=== PATIENT | male | born 1955 | race Caucasian/White ===

== ENCOUNTER → 2017-11-08 08:13 | Outpatient (CLI) | payer MEDICARE, SELFPAY ==
[2017-11-08 09:58] LABS: Anion Gap 12.1 mEq/L (5-15); Blood Urea Nitrogen 19 mg/dL (7-18); Carbon Dioxide 29 mmol/L (21.0-32.0); Chloride 102 mmol/L (98-107); Creatinine,Serum 0.92 mg/dL (0.70-1.30); Estimated Glomerular Filt Rate > 60 ml/min (>60); GFR (African American) > 60 ML/MIN (>60); Glucose 155 mg/dL (74-106); Sodium 138 mmol/L (136-145)
[2017-11-08 10:07] LABS: Potassium 5.1 mmoL/L (3.5-5.1)
== END ==
PROVIDERS: PCP Internal Medicine; Visit Provider Internal Medicine
DX: R06.02 Shortness of breath (principal); I25.10 Atherosclerotic heart disease of native coronary artery without angina pectoris; E78.5 Hyperlipidemia, unspecified; I10 Essential (primary) hypertension; Z95.5 Presence of coronary angioplasty implant and graft
CPT/HCPCS: 36415; 80048; 83880

== ENCOUNTER → 2017-11-17 08:14 | Outpatient (CLI) | payer MEDICARE, SELFPAY ==
--- NOTE | 2017-11-17 08:21 | XR_ITS ---
XR chest 2V HISTORY: Follow-up pneumonia ITS.REASON: PNEUMONIA ORDERING PHYSICIAN: Miguel Quiñones PATIENT AGE: 62 years COMPARISON: None available FINDINGS: There is normal heart size. There is hyperinflation with hyperattenuation consistent with COPD. There remains consolidation with prominent bronchovascular markings in the left perihilar region. The left lower lobe consolidation has improved. There however does remain prominence of the left hilum. There is increased density in the left paraspinal region within the left lower lobe which could be related to the aorta with shift toward the left with volume loss. One cannot exclude left lower lobe collapse. The right lung is clear. No obvious effusion. IMPRESSION: 1. Improvement in the left lower lobe pneumonia with effusion. 2. Persistent consolidation in the left perihilar region with prominence of the left hilum. While these findings may be inflammatory/infectious, one cannot exclude possibility of neoplasm. Recommend continued follow-up. If this does not clear then CT with contrast would be recommended for further evaluation.
== END ==
PROVIDERS: PCP Internal Medicine; Visit Provider Internal Medicine
DX: J18.9 Pneumonia, unspecified organism (principal)
CPT/HCPCS: 71046

== ENCOUNTER → 2017-12-04 07:58 | Outpatient (CLI) | payer MEDICARE, SELFPAY ==
--- NOTE | 2017-12-04 08:04 | CA_ITS ---
PROCEDURE: 2-D M-mode and color Doppler study INDICATIONS FOR THE TEST: Chest pain COPD Heart Murmur Tobacco Smoking Palpitations Fatigue Syncope Edema HypertensionXDiabetes Mellitus Rheumatic Fever SOB CALVERT Obesity Hyperlipidemia Family History HD Additional History CAD,CM EF 10/25/17 30-45% PATIENT INFORMATION HEIGHT: 70 WEIGHT:148 GENDER: Male B/P:119/86 2-D/M-MODE INTERPRETATION: 2-D MEASUREMENTS OBSERVED VALUES IN CMS Right Ventricular Dimension (RVDd) 1.9 Interventricular Septum (Thickness)(IVsd) .8 Left Ventricular Internal Dimensions(LVIDd) 4.0 Left Ventricular Posterior Wall (Thickness)(LVPWd) .7 Aortic Root 3.1 Aortic Cusp Separation 2.0 Left Atrial Dimensions (LAD) 2.4 2D 1. Left atrium is mildly enlarged, left ventricle is normal size, there is no concentric left ventricular hypertrophy, visually estimated ejection fraction 40-45%, there is marked hypokinesis involving the inferobasal wall. 2. The right atrium and right ventricle are normal size and contractility. 3. The aortic valve is minimally thickened and fibrosed. 4. The mitral and tricuspid valve leaflets are minimally thickened. 5. The pulmonic valve is poorly visualized. 6. No significant pericardial effusion noted. DOPPLER INTERROGATION: Doppler interrogation of the aortic, mitral and tricuspid valvular presence of mild mitral and tricuspid regurgitation, tricuspid and jet velocity is insufficient for calculation of the right ventricular systolic pressure, diastolic parameters are within normal range. CONCLUSION: 1. Mildly enlarged left atrium, normal left ventricular size, visually estimated ejection fraction of 40-45% with segmental wall motion abnormality described above, diastolic parameters are within normal range. 2. Mild mitral and tricuspid regurgitation. 3. No significant pericardial effusion noted.
== END ==
PROVIDERS: PCP Internal Medicine; Visit Provider Internal Medicine
DX: I25.10 Atherosclerotic heart disease of native coronary artery without angina pectoris (principal); I42.9 Cardiomyopathy, unspecified
CPT/HCPCS: 93306

== ENCOUNTER → 2017-12-29 09:23 | Outpatient (CLI) | payer MEDICARE, SELFPAY ==
--- NOTE | 2017-12-29 09:28 | XR_ITS ---
XR chest 2V HISTORY: Follow-up pneumonia, cough and congestion ITS.REASON: FU PNEUMONIA ORDERING PHYSICIAN: Miguel Quiñones PATIENT AGE: 62 years COMPARISON: 11/17/2017 FINDINGS: The heart size is unremarkable. There does remain prominence of the left hilum with persistent increased density left perihilar region consistent with pneumonia. This has shown some slight improvement compared to the previous study. There is a new parenchymal opacity within the lingula. The right lung is clear. No acute bony anomalies. IMPRESSION: Slightly improved but persistent consolidation in the left perihilar region. Consider chest CT with contrast to exclude central obstructing lesion. There is some new opacification within the lingula and may be due to atelectasis or infiltrate
== END ==
PROVIDERS: PCP Internal Medicine; Visit Provider Internal Medicine
DX: J18.9 Pneumonia, unspecified organism (principal); J44.9 Chronic obstructive pulmonary disease, unspecified
CPT/HCPCS: 71046

== ENCOUNTER → 2018-01-11 13:17 | Outpatient (CLI) | payer MEDICARE, SELFPAY ==
[2018-01-11 13:47] LABS: Blood Urea Nitrogen 17 mg/dL (7-18); Creatinine,Serum 0.92 mg/dL (0.70-1.30); Estimated Glomerular Filt Rate 84 ml/min (>60); GFR (African American) 101 ML/MIN (>60)
--- NOTE | 2018-01-11 13:56 | CT_ITS ---
CT chest w con HISTORY: Chronic consolidation, post obstructive pneumonia, from the liver, normal chest x-ray ITS.REASON: CENTRAL OBSTRUCTING LESION ORDERING PHYSICIAN: Miguel Quiñones PATIENT AGE: 62 years TECHNIQUE: Axial images obtained following the administration of 75 mL of Isovue 370 . Sagittal, and coronal reformatted images are also generated and reviewed. COMPARISON: Radiograph of 12/29/2017 FINDINGS: No evidence of aortic aneurysm or central pulmonary embolus. There are coronary artery calcifications are fairly dense. Normal heart size. No evidence of pericardial effusion. There are moderate centrilobular emphysematous change. There is parenchymal opacification in the medial aspect of the segment of the left lower lobe with air bronchograms consistent with pneumonia. Bronchial thickening is noted in this area which may be inflammatory. There are small nodes in the shiva on both sides but no central obstructing lesion is evident. No effusions are apparent. There are parenchymal fibrotic changes within the lingula. No effusions are evident. IMPRESSION: 1. Consolidation within the medial aspect of the superior segment of the left lower lobe consistent with residual pneumonia/postinflammatory change. No obvious central obstructing lesion. Recommend 3 month follow-up to confirm resolution of the parenchymal opacity. Neoplasm is still to be less likely but not excluded based on radiographic appearance. 2. Centrilobular emphysema 3. Coronary artery disease
--- NOTE | 2018-01-11 14:13 | HMH.ITSHM ---
BRILINTA,DIGOXIN CARVEDILOL ENTRESTO
== END ==
PROVIDERS: PCP Internal Medicine; Visit Provider Internal Medicine
DX: J98.4 Other disorders of lung (principal)
CPT/HCPCS: 36415; 71260; 82565; 84520; Q9967

== ENCOUNTER → 2018-01-17 11:28 | Outpatient (CLI) | payer MEDICARE, SELFPAY ==
[2018-01-17 12:28] LABS: Alanine Aminotransferase 54 U/L (12-78); Albumin Level 3.6 gm/dL (3.4-5.0); Alkaline Phosphatase 95 U/L (46-116); Aspartate Amino Transferase 30 U/L (15-37); Bilirubin,Direct 0.1 mg/dL (0.0-0.2); Bilirubin,Total 0.4 mg/dL (0.2-1.0); Blood Urea Nitrogen 11 mg/dL (7-18); Chol/HDL Ratio 2.6 (1-3.5); Cholesterol 131 mg/dL (140-200); Creatinine,Serum 0.84 mg/dL (0.70-1.30); Estimated Glomerular Filt Rate 93 ml/min (>60); GFR (African American) 112 ML/MIN (>60); Glucose 93 mg/dL (74-106); HDL Cholesterol 51 mg/dL (27-67); LDL Cholesterol 63 mg/dL (0-130); Total Protein,Serum 7.6 gm/dL (6.4-8.2); Triglycerides 85 mg/dL (30-200); VLDL Cholesterol 17 mg/dL (0-40)
[2018-01-17 14:06] LABS: Anion Gap 10.5 mEq/L (5-15); Carbon Dioxide 27 mmol/L (21.0-32.0); Chloride 108 mmol/L (98-107); Potassium 4.5 mmoL/L (3.5-5.1); Sodium 141 mmol/L (136-145)
== END ==
PROVIDERS: Visit Provider Physician Assistant
DX: I50.20 Unspecified systolic (congestive) heart failure (principal); I25.118 Atherosclerotic heart disease of native coronary artery with other forms of angina pectoris; R06.00 Dyspnea, unspecified
CPT/HCPCS: 80048; 80061; 80076

== ENCOUNTER 2018-02-22 10:29 | Observation (INO) ==
--- NOTE | 2018-02-22 10:46 | Emergency Department Note ---
ED Disposition Clinical Impression: Unstable angina, CAD (coronary artery disease), COPD (chronic obstructive pulmonary disease) Disposition: Still a Patient Condition on Discharge: Fair Referrals: Miguel Quiñones [Primary Care Provider] - - Critical Care Critical Care Time: Yes (21 minutes) Attestation: On , the high probability of a clinically significant, sudden or life threatening deterioration of the following system(s) required my full and direct attention, intervention and personal management. The time I documented below is in addition to time spent performing reported procedures but includes the following listed in this critical care notation. Vital system(s) involved:: Circulatory Failure My critical care processes included: Assessment & monitoring of V/S, Initial and Re-exams, Coordinating Care, Medication Orders and management, Documentation Medical Decision Making - Medical Records Medical records reviewed: Yes: I reviewed the patient's medical records. - Jacky Inquiry Pt receiving controlled substance: No Jacky was queried for this patient: No Vital Signs: 02/22/18 10:32 02/22/18 10:50 02/22/18 10:59 Temperature 98.5 F Temperature Source Oral Pulse Rate 49 L 49 L Pulse Rate [Right Radial] 52 L Respiratory Rate 20 22 Blood Pressure 171/85 Blood Pressure [Right Arm] 141/101 Blood Pressure Mean [Right Arm] 114 Blood Pressure Source [Right Arm] Automatic Cuff Blood Pressure Position [Right Arm] Supine 02 Sat by Pulse Oximetry 99 Oxygen Delivery Method Room Air Nasal Cannula Oxygen Flow Rate (LPM) 2 - Lab Data Lab Results 02/22/18 10:35: WBC 10.4, RBC 4.78, Hgb 15.4, Hct 46.4, MCV 97.0 H, MCH 32.2 H, MCHC 33.2, RDW 12.7, Plt Count 274, MPV 7.5, Neut % (Auto) 53.4, Lymph % (Auto) 38.2, Bulloch % (Auto) 6.6, Eos % (Auto) 1.5, Baso % (Auto) 0.4, Neut # (Auto) 5.6 , Lymph # (Auto) 4.0, Bulloch # (Auto) 0.7, Eos # (Auto) 0.2, Baso # (Auto) 0.0 02/22/18 10:35: Sodium 141, Potassium 4.3, Chloride 105, Carbon Dioxide 29, Anion Gap 11.3, BUN 21 H, Creatinine 0.89, Estimated Creat Clear 57, Estimated GFR 87, Est GFR ( Amer) 105, Glucose 97, Calcium 8.8, Magnesium 1.9, Total Bilirubin 0.6, AST 21, ALT 45, Alkaline Phosphatase 75, Total Creatine Kinase 57, CK-MB (CK-2) 1.0, CK-MB (CK-2) Rel Index 1.8, Troponin I < 0.02, Total Protein 7.2, Albumin 3.5, Globulin 3.7 H, Albumin/Globulin Ratio 0.9 L 02/22/18 10:35: B-Natriuretic Peptide 58 02/22/18 10:35: PT 11.1, INR 1.03 02/22/18 10:52: Specimen Source R. radial, O2 % Room air, ABG pH 7.42, ABG pCO2 37.5, ABG pO2 90.0, ABG HCO3 23.9, ABG Total CO2 25.1, ABG O2 Saturation 97, ABG Base Excess -0.5, Jeff Test Acceptable Result diagrams: 02/22/18 10:35 02/22/18 10:35 Orders (Tests/Meds): ED MEDICATIONS Generic Name Dose Route Start Last Admin Trade Name Freq PRN Reason Stop Dose Admin Diphenhydramine HCl 50 mg 02/22/18 11:01 Benadryl 50mg/1ml Vial IV 02/22/18 11:02 ONCE ONE Fentanyl Citrate 50 mcg 02/22/18 11:01 Fentanyl 100mcg/2ml Vial IV 02/23/18 11:02 Q3MINP PRN Moderate to Severe Pain Fentanyl Citrate 25 mcg 02/22/18 11:01 Fentanyl 100mcg/2ml Vial IV 02/23/18 11:02 Q3MINP PRN Moderate to Severe Pain Flumazenil 0.2 mg 02/22/18 11:01 Romazicon 0.1mg/Ml 5ml Vial IV 02/22/18 23:00 NEEDED PRN Sedation Heparin Sodium (Porcine) 10,000 unit 02/22/18 11:01 Heparin 1,000 Units/Ml 10ml Vial (Structural Metal Worker) IV 02/22/18 15:01 NEEDED PRN Emergency Box Car Scrubber Heparin Sodium/Sodium Chloride 3,000 unit 02/22/18 11:01 Heparin 1000 Units/500ml Ns (Structural Metal Worker) IV 02/22/18 11:02 ONCE ONE Heparin Sodium/Dextrose 500 mls @ 17 mls/hr 02/22/18 11:00 02/22/18 11:01 Heparin 25,000 Units In D5w 500ml Premix IV 03/24/18 10:59 17 mls/hr .Q25H ESTUARDO Administration 850 UNITS/HR Sodium Chloride 1,000 mls @ 25 mls/hr 02/22/18 11:15 Sod Chlor 0.9% 1000ml Bag IV 02/23/18 11:01 .Q25H ESTUARDO Lidocaine HCl 20 ml 02/22/18 11:01 Lidocaine 1% 20ml Mdv IJ 02/22/18 11:02 ONCE ONE Midazolam HCl 1 mg 02/22/18 11:01 Midazolam 2mg/2ml Vial IV 02/23/18 11:01 Q3MINP PRN Sedation Midazolam HCl 1 mg 02/22/18 11:01 Midazolam 1mg/Ml 5ml Vial IV 02/23/18 11:01 Q3MINP PRN Sedation Naloxone HCl 0.4 mg 02/22/18 11:01 Narcan 0.4mg/Ml Vial IV 02/23/18 11:01 Q5MINP PRN Decreased respirations Nitroglycerin 800 mcg 02/22/18 11:01 Nitroglycerin 800mcg/8ml Syr (Structural Metal Worker) IV 02/23/18 11:01 NEEDED PRN Emergency Box Car Scrubber Verapamil HCl 2.5 mg 02/22/18 11:01 Verapamil 2.5mg/Ml 2ml Vial IV 02/22/18 11:02 ONCE ONE Discontinued Medications Generic Name Dose Route Start Last Admin Trade Name Freq PRN Reason Stop Dose Admin Albuterol/Ipratropium 3 ml 02/22/18 10:51 02/22/18 10:52 Duoneb 3ml Neb IH 02/22/18 10:52 3 ml ONCE ONE Administration Heparin Sodium (Porcine) 4,200 unit 02/22/18 11:00 02/22/18 10:35 Heparin Sodium 5,000 Units/Ml Vial IV 02/22/18 11:01 4,200 unit ONCE ONE Administration Nitroglycerin 1 gm 02/22/18 10:59 02/22/18 10:35 Nitroglycerin 1 Inch Oint Udp TD 02/22/18 11:00 1 gm ONCE ONE Administration ORDERS Category Date Time Status Chest XR -- portable [XR chest portable] Stat Exams 02/22/18 10:49 Taken ABG [Arterial Blood Gas] Stat RT 02/22/18 10:55 Ordered ECG Request by /Yue Stat Y 02/22/18 10:52 Ordered - Radiology Data #1 Image(s): Chest Image Reviewed: Yes I reviewed the patient's radiology image Preliminary Findings: Normal/NAD - ECG Data Tracing #1 Sinus bradycardia 44/min no acute findings. Unchanged from prior EKG October 26, 2017. 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 Start anticoagulation. He contacted tare man Dr. Camargo for emergency cardiac catheterization. The cardiac cath staff arrived to the ED and move the patient to the cath suite. Chest pain has decreased to 2/10 seems to be breathing more comfortably. 10:[address] Camargo and updated him about the patient condition. I did reviewhis labs that was within normal limits. Again his symptoms are suggestive of unstable angina with low cardiac output manifestation. Patient remained hemodynamically stable during his ED stay. I contacted Dr. Marks to notify him of potential unassigned admission after catheterization as his pcp is Dr. Quiñones Chest Pain HPI - General Chief Complaint: Chest Pain Stated Complaint: chest pain Time Seen by Provider: 02/22/18 10:42 - History of Present Illness HPI narrative: 64 years old white male with history of coronary artery disease congestive heart failure status post 3 stents in October 2017. He has been experiencing chest pain for the past 4 days. At one point he states that he passed that on February 18. Today he presented to the cardiology clinic where he reported his chest pain, he was advised for admission went to get his form from the car when he developed chest pain 5/10 associated with shortness of breath and generalized weak. He denies loss of consciousness. He was brought to the emergency room obtain 12-lead EKG showed sinus bradycardia 44/min. Dr. Sneed presented to the ED recommended anticoagulation, BNp. labs and contacted interventional cardiology for catheterization MD complaint: chest pain indicative of cardiac Onset (ago): day(s) (4 days ago.) Duration: intermittent Activity at onset: during exertion Pain location: substernal Severity: moderate Severity scale (1-10): 5 Quality: tightness Pain radiation: none Relieving factors: rest Exacerbating factors: exertion Associated symptoms: dyspnea, syncope (He had an episode of syncope 4 days ago. ) Risk Factors for CAD: Smoking Treatments prior to or on arrival for Cardiac Chest Pain: beta blockers - Related Data Home Medications Medication Instructions Recorded Confirmed Atorvastatin Calcium [Lipitor 40mg 40 mg PO QDAY 02/22/18 02/22/18 Tablet] Carvedilol [Carvedilol 12.5mg Tab] 12.5 mg PO BID 02/22/18 02/22/18 Digoxin 125 mcg PO DAILY 02/22/18 02/22/18 Sacubitril/Valsartan [Entresto 1 tab PO BID 02/22/18 02/22/18 24/26mg Tablet] Ticagrelor [Brilinta 90mg Tablet] 90 mg PO BID 02/22/18 02/22/18 Allergies Allergy/AdvReac Type Severity Reaction Status Date / Time No Known Drug Allergies Allergy Unknown Unverified 10/24/17 14:23 [facility] History I have reviewed the patient's past medical history: Yes Medical History: Reports:: Coronary Artery Disease, Gastroesophageal Reflux Disease(GERD), Hypertension Other Medical History: Reports: Arthritis Laterality Cases: Left: Carpal Tunnel Release Other Surgeries: Yes: Hernia Repair, Other Comment: Heart Cath-stents - Social History Smoking Status: Former smoker Alcohol Intake: never Alcohol Intake Frequency:: other Family Hx:: Coronary Artery Disease ROS Obtained: Yes All systems reviewed & no additional complaints Physical Exam - General General appearance: alert, anxious (Looks anxious and in mild respiratory distress. ), in distress - Head Head exam: atraumatic, normocephalic, normal inspection - Eye Eye exam: Present: normal appearance, PERRL, EOMI - ENT ENT exam: Present: normal exam, normal oropharynx, mucous membranes moist, TM's normal bilaterally, normal external ear exam - Neck Neck exam: Present: normal inspection, full ROM, trachea midline. Absent: meningismus, lymphadenopathy - Chest Chest inspection: Present: symmetric chest wall rise, other (Increased anterior- posterior diameter of the chest wall with moderate air entry. ). Absent: tenderness - Respiratory Respiratory exam: Present: normal lung sounds bilaterally. Absent: respiratory distress - Cardiovascular Cardiovascular exam: Present: regular rate, normal rhythm. Absent: JVD - Abdominal Exam Abdominal exam: Present: soft, normal bowel sounds. Absent: distention, tenderness, guarding, rebound, rigidity - Extremities Exam Extremities exam: Present: normal inspection, full ROM, normal capillary refill. Absent: calf tenderness - Back Exam Back exam: Present: normal inspection. Absent: tenderness - Neurological Exam Neurological exam: Present: alert, oriented X3, CN II-XII intact, motor sensory deficit, reflexes normal, other (Was unable to walk due to generalized weakness. )
[2018-02-22 10:57] LABS: Basophils % 0.4 % (0.1-2.0); Eosinophils # 0.2 K/mm3 (0.0-0.4); Eosinophils % 1.5 % (0.1-12.0); Hematocrit 46.4 % (42.0-52.0); Hemoglobin 15.4 g/dL (14.1-18.0); Lymphocytes % 38.2 K/mm3 (10-50); Mean Corpuscular HGB Conc 33.2 g/dL (31.8-35.4); Mean Corpuscular Hemoglobin 32.2 pg (27.0-31.2); Mean Platelet Volume 7.5 fl (7.4-10.4); Monocytes # 0.7 K/mm3 (0.1-1.0); Monocytes % 6.6 % (1.7-9.3); Neutrophils # 5.6 K/mm3 (1.8-7.8); Neutrophils % 53.4 % (37.0-80.0); Platelet Count 274 K/mm3 (142-424); Red Blood Count 4.78 M/mm3 (4.60-6.20); Red Cell Distribution Width 12.7 % (11.5-17.5); White Blood Count 10.4 K/mm3 (4.8-10.8)
[2018-02-22 10:58] LABS: ABG Base Excess -0.5 mmol/L (-2.4-2.3); ABG HCO3 23.9 mmhg (22.0-26.0); ABG Oxygen Saturation 97 % (90-100); ABG PCO2 37.5 mmhg (35.0-45.0); ABG PH 7.42 mmol/L (7.35-7.45); ABG TCO2 25.1 mmhg (23-27)
[2018-02-22 10:59] LABS: Allen's Test ACCEPTABLE; Oxygen ROOM AIR %
[2018-02-22 11:11] LABS: INR 1.03 (0.9-1.1); Prothrombin Time 11.1 seconds (9.4-11.8)
[2018-02-22 11:16] LABS: Alanine Aminotransferase 45 U/L (12-78); Albumin Level 3.5 gm/dL (3.4-5.0); Albumin/Globulin Ratio 0.9 (1.1-1.8); Alkaline Phosphatase 75 U/L (46-116); Anion Gap 11.3 mEq/L (5-15); Aspartate Amino Transferase 21 U/L (15-37); Bilirubin,Total 0.6 mg/dL (0.2-1.0); Blood Urea Nitrogen 21 mg/dL (7-18); Calcium 8.8 mg/dL (8.5-10.1); Carbon Dioxide 29 mmol/L (21.0-32.0); Chloride 105 mmol/L (98-107); Creatine Kinase 57 U/L (39-308); Globulin 3.7 gm/dl (1.3-3.2); Glucose 97 mg/dL (74-106); Potassium 4.3 mmoL/L (3.5-5.1); Sodium 141 mmol/L (136-145); Total Protein,Serum 7.2 gm/dL (6.4-8.2)
--- NOTE | 2018-02-22 13:14 | Consult Report ---
History of Present Illness Consult date: 02/22/18 Consult reason: chest pain Chief complaint: Chest pain Additional Medical History:: 1. Angina pectoris 2. Abnormal ECG: Sinus bradycardia with fusion complexes, cannot rule out anterior infarct and lateral injury pattern. Abnormal EKG 3. Coronary artery disease stenting; a. Acute non-ST segment elevation myocardial infarction on 10/24/2017. b. Ischemic ventricular tachycardia c. Drug-eluting stent deployment to the mid LAD d. DAPT with Brilinta and aspirin 3. Systolic congestive heart failure 4. Dyspnea on exertion 5. Former tobacco abuse 6. Mixed hyperlipidemia History of present illness: 63-year-old white male presented to cardiology clinic today. While being seen by storage engineer, patient had a syncopal episode. Patient taken to the emergency room department for evaluation. Patient regained consciousness after a few seconds. Stated he had been having some chest pain and increased shortness of breath for the past few days. Patient noted to have history of coronary artery disease with stenting. On 10/24/2017, patient was diagnosed with acute non-ST segment elevation myocardial infarction and ischemic ventricular tachycardia. At that time patient underwent left heart catheterization, which revealed ischemic myocardiopathy resulting from severe critical two-vessel coronary artery disease, and chronically occluded dominant RCA which is filled by collaterals from a severe to critical stenosis large wraparound apex LAD system. Severe elevated LVEDP noted. Patient did wear a fitted LifeVest 40 days after the last heart catheterization. Last echocardiogram was on 12/04/2017 which revealed mildly enlarged left atrium with normal left ventricular size with an EF of 40-45% with segmental wall motion abnormality. Mild mitral and tricuspid regurgitation also noted at that time. Initial EKG revealed marked sinus bradycardia with fusion complexes which cannot rule out anterior infarct and lateral injury pattern with a ventricular rate of 45 bpm. Troponin 1 was 0.02. Baseline labs were unremarkable. Chest x-ray revealed COPD with no acute findings. Patient underwent left heart catheterization the a.m.. Successful stenting of the first diagonal artery severe disease was . reduced to 0% with one drug- eluting stent. Chronically occluded RCA noted. Patient currently being treated with Brilinta and aspirin. During postop in the [facility], patient noted to be hypotensive and in sinus bradycardia with a rate of 40 bpm. Patient denies chest pain or shortness of breath. Patient admitted inpatient under Dr. Marks for hypotension and sinus bradycardia. Patient will be monitored through evening. Patient may benefit from pacemaker placement for symptomatic sinus bradycardia heart and severe LVEDP. [facility] History Medical History: Reports:: Congestive Heart Failure, Chronic Obstructive Pulmonary Disease (COPD), Coronary Artery Disease, Gastroesophageal Reflux Disease(GERD), Hypertension, Myocardial Infarction Denies:: Cancer, Congenital Heart Disease, Diabetes Mellitus Type 1, Diabetes Mellitus Type 2, MRSA Other Medical History: Reports: Arthritis Laterality Cases: Left: Carpal Tunnel Release Other Surgeries: Yes: Hernia Repair, Other Amputation: No Fractures: No - *Social History Smoking Status: Former smoker Alcohol Intake: never Alcohol Intake Frequency:: other - Psychiatric History Expresses thoughts of harming self/others: None Suicide Plan Description: No Plan *Family Hx:: Coronary Artery Disease Meds Home Medications Medication Instructions Recorded Confirmed Type Atorvastatin Calcium [Lipitor 40mg 40 mg PO QDAY 02/22/18 02/22/18 History Tablet] Carvedilol [Carvedilol 12.5mg Tab] 12.5 mg PO BID 02/22/18 02/22/18 History Digoxin 125 mcg PO DAILY 02/22/18 02/22/18 History Sacubitril/Valsartan [Entresto 1 tab PO BID 02/22/18 02/22/18 History 24/26mg Tablet] Ticagrelor [Brilinta 90mg Tablet] 90 mg PO BID 02/22/18 02/22/18 History Allergies Allergy/AdvReac Type Severity Reaction Status Date / Time No Known Drug Allergies Allergy Unknown Unverified 10/24/17 14:23 Review of Systems - Review of Systems Review of systems:: pertinent systems reviewed and negative unless documented below - Constitutional Reports fatigue, Reports lack of energy - *Cardiovascular Reports chest pain, Reports chest pain at rest, Reports chest pain with activity , Reports shortness of breath, Reports shortness of breath with activity, Reports slow heart rate, Reports fainting, Denies leg pain with activity, Denies generalized swelling - *Respiratory Reports shortness of breath, Reports shortness of breath with activity, Denies cough, Denies stridor, Denies wheezing - *Gastrointestinal Denies abdominal pain - *Musculoskeletal Denies muscle weakness - *Neurologic Reports dizziness, Reports dizziness, Reports weakness Exam Vital signs and Labs for Last 24 Hours: Temp Pulse Resp BP Pulse Ox 98.5 F 54 L 18 89/58 96 02/22/18 10:59 02/22/18 12:45 02/22/18 12:45 02/22/18 12:45 02/22/18 12:45 Laboratory Results - last 24 hr 02/22/18 10:35: WBC 10.4, RBC 4.78, Hgb 15.4, Hct 46.4, MCV 97.0 H, MCH 32.2 H, MCHC 33.2, RDW 12.7, Plt Count 274, MPV 7.5, Neut % (Auto) 53.4, Lymph % (Auto) 38.2, [place] % (Auto) 6.6, Eos % (Auto) 1.5, Baso % (Auto) 0.4, Neut # (Auto) 5.6 , Lymph # (Auto) 4.0, [place] # (Auto) 0.7, Eos # (Auto) 0.2, Baso # (Auto) 0.0 02/22/18 10:35: Sodium 141, Potassium 4.3, Chloride 105, Carbon Dioxide 29, Anion Gap 11.3, BUN 21 H, Creatinine 0.89, Estimated Creat Clear 57, Estimated GFR 87, Est GFR ( Amer) 105, Glucose 97, Calcium 8.8, Magnesium 1.9, Total Bilirubin 0.6, AST 21, ALT 45, Alkaline Phosphatase 75, Total Creatine Kinase 57, CK-MB (CK-2) 1.0, CK-MB (CK-2) Rel Index 1.8, Troponin I < 0.02, Total Protein 7.2, Albumin 3.5, Globulin 3.7 H, Albumin/Globulin Ratio 0.9 L 02/22/18 10:35: B-Natriuretic Peptide 58 02/22/18 10:35: PT 11.1, INR 1.03 02/22/18 10:52: Specimen Source R. radial, O2 % Room air, ABG pH 7.42, ABG pCO2 37.5, ABG pO2 90.0, ABG HCO3 23.9, ABG Total CO2 25.1, ABG O2 Saturation 97, ABG Base Excess -0.5, Jeff Test Acceptable 02/22/18 11:29: Activated Clotting Time 364 H* I & O for Last 24 hours: Intake & Output 02/19/18 02/20/18 02/21/18 02/22/18 23:59 23:59 23:59 23:59 Weight 115 lb - Constitutional mild distress, thin, cooperative - *Routine Neck Exam Present: supple, full ROM, normal carotid upstroke, trachea midline. Absent: JVD, carotid bruit, swelling - *Routine Respiratory Exam Present: CTA bilaterally. Absent: rhonchi, wheezes, crackles - *Routine Cardiovascular Exam Present: RRR, Normal S1, Normal S2, murmur, bradycardia - *Routine Abdominal Exam Present: soft, firm. Absent: guarding - *Routine Extremities Exam Present: full ROM, pulses intact, normal capillary refill. Absent: cyanosis, clubbing, edema, calf tenderness - *Routine Neurological Exam Present: alert, oriented X3, CN II-XII intact, moving all extremities, normal speech Assessment and Plan (1) COPD (chronic obstructive pulmonary disease) Current visit: Yes Status: Acute Category: Medical Code(s): J44.9 - Chronic obstructive pulmonary disease, unspecified (2) Unstable angina Current visit: Yes Status: Acute Category: Medical Code(s): I20.0 - Unstable angina (3) CAD (coronary artery disease) Current visit: Yes Status: Chronic Qualifiers: Category: Medical Code(s): I25.10 - Atherosclerotic heart disease of [place] coronary artery without angina pectoris (4) Abnormal EKG Current visit: No Status: Acute Category: Medical Code(s): R94.31 - Abnormal electrocardiogram [ECG] [EKG] (5) Ex-smoker Current visit: No Status: Acute Category: Social Hx Code(s): Z87.891 - Personal history of nicotine dependence (6) Oxygen dependent Current visit: No Status: Acute Category: Medical Code(s): Z99.81 - Dependence on supplemental oxygen (7) Dyspnea Current visit: No Status: Chronic Qualifiers: Dyspnea type: dyspnea on exertion Qualified Code(s): R06.09 - Other forms of dyspnea Category: Medical Code(s): R06.00 - Dyspnea, unspecified (8) Stented coronary artery Problem details: Current visit: No Status: Chronic Category: Surgical Code(s): Z95.5 - Presence of coronary angioplasty implant and graft - Assessment and plan all Dx Assessment and Plan for all problems:: Plan: 1. Obtain echocardiogram to reevaluate and assess LV function and valvular status. 2. Continue current home medications. 3. Monitor patient for symptomatic bradycardia and hypotension. 4. Continue dual anti-platelet therapy: Brilinta and aspirin. 5. Consider pacemaker placement if patient continues to be symptomatic.
--- NOTE | 2018-02-22 16:32 | History & Physical Report ---
*Admission Date: 02/22/18 *Chief complaint: chest pain *History of present illness: 63-year-old white male presented to cardiology clinic today. While being seen by tennis ball coverer hand, patient had a syncopal episode. Patient taken to the emergency room department for evaluation. Patient regained consciousness after a few seconds. Stated he had been having some chest pain and increased shortness of breath for the past few days. Patient noted to have history of coronary artery disease with stenting. On 10/24/2017, patient was diagnosed with acute non-ST segment elevation myocardial infarction and ischemic ventricular tachycardia. At that time patient underwent left heart catheterization, which revealed ischemic myocardiopathy resulting from severe critical two-vessel coronary artery disease, and chronically occluded dominant RCA which is filled by collaterals from a severe to critical stenosis large wraparound apex LAD system. Severe elevated LVEDP noted. Patient did wear a fitted LifeVest 40 days after the last heart catheterization. Last echocardiogram was on 12/04/2017 which revealed mildly enlarged left atrium with normal left ventricular size with an EF of 40-45% with segmental wall motion abnormality. Mild mitral and tricuspid regurgitation also noted at that time. Initial EKG revealed marked sinus bradycardia with fusion complexes which cannot rule out anterior infarct and lateral injury pattern with a ventricular rate of 45 bpm. Troponin 1 was 0.02. Baseline labs were unremarkable. Chest x-ray revealed COPD with no acute findings. Patient underwent left heart catheterization the a.m.. Successful stenting of the first diagonal artery severe disease was . reduced to 0% with one drug- eluting stent. Chronically occluded RCA noted. Patient currently being treated with Brilinta and aspirin. During postop in the [facility], patient noted to be hypotensive and in sinus bradycardia with a rate of 40 bpm. Patient denies chest pain or shortness of breath. Patient's PCP is Dr. Quiñones and he has been admitted to Dr. Carver service for hypotension and sinus bradycardia. Patient will be monitored through evening. Patient may benefit from pacemaker placement for symptomatic sinus bradycardia heart and severe LVEDP [facility] History I have reviewed the patient's past medical history: Yes Medical History: Reports:: Atrial Fibrillation, Congestive Heart Failure, Chronic Obstructive Pulmonary Disease (COPD), Coronary Artery Disease, Gastroesophageal Reflux Disease(GERD), Hyperlipidemia, Hypertension, Myocardial Infarction Denies:: Cancer, Congenital Heart Disease, Diabetes Mellitus Type 1, Diabetes Mellitus Type 2, MRSA Other Medical History: Reports: Arthritis Laterality Cases: Left: Carpal Tunnel Release Other Surgeries: Yes: Angiogram, Angioplasty, Cardiac Catheterization, Coronary Stent, Hernia Repair, Other Amputation: No Fractures: No - *Social History Smoking Status: Former smoker Tobacco Type: cigarettes Alcohol Intake: never Alcohol Intake Frequency:: other Occupational Status: retired Household Members: none - Psychiatric History Expresses thoughts of harming self/others: None Suicide Plan Description: No Plan *Family Hx:: Coronary Artery Disease Review of Systems - Review of Systems Review of systems:: pertinent systems reviewed and negative unless documented below - *Neurologic Reports dizziness, Reports fainting, Reports dizziness, Reports weakness Meds Home Medications Medication Instructions Recorded Confirmed Type Atorvastatin Calcium [Lipitor 40mg 40 mg PO QDAY 02/22/18 02/22/18 History Tablet] Carvedilol [Carvedilol 12.5mg Tab] 12.5 mg PO BID 02/22/18 02/22/18 History Digoxin 125 mcg PO DAILY 02/22/18 02/22/18 History Sacubitril/Valsartan [Entresto 1 tab PO BID 02/22/18 02/22/18 History 24/26mg Tablet] Ticagrelor [Brilinta 90mg Tablet] 90 mg PO BID 02/22/18 02/22/18 History Allergies Allergy/AdvReac Type Severity Reaction Status Date / Time No Known Drug Allergies Allergy Unknown Unverified 10/24/17 14:23 Exam Vital signs and Labs for Last 24 Hours: Temp Pulse Resp BP Pulse Ox 98.5 F 54 L 18 89/58 96 02/22/18 10:59 02/22/18 12:45 02/22/18 12:45 02/22/18 12:45 02/22/18 12:45 Narrative: Patient appears comfortable. Oropharynx is moist. Neck is without carotid bruits. Lungs are clear to auscultation. Heart has a regular rate and rhythm. Abdomen is thin and soft. Extremities are without edema. He is oriented to person place and time Assessment and Plan (1) CAD (coronary artery disease) Current visit: Yes Status: Chronic Qualifiers: Category: Medical Code(s): I25.10 - Atherosclerotic heart disease of [place] coronary artery without angina pectoris (2) COPD (chronic obstructive pulmonary disease) Current visit: Yes Status: Acute Category: Medical Code(s): J44.9 - Chronic obstructive pulmonary disease, unspecified (3) Unstable angina Current visit: Yes Status: Acute Category: Medical Code(s): I20.0 - Unstable angina (4) Abnormal EKG Current visit: No Status: Acute Category: Medical Code(s): R94.31 - Abnormal electrocardiogram [ECG] [EKG] (5) Ex-smoker Current visit: No Status: Acute Category: Social Hx Code(s): Z87.891 - Personal history of nicotine dependence (6) Oxygen dependent Current visit: No Status: Acute Category: Medical Code(s): Z99.81 - Dependence on supplemental oxygen (7) Dyspnea Current visit: No Status: Chronic Qualifiers: Dyspnea type: dyspnea on exertion Qualified Code(s): R06.09 - Other forms of dyspnea Category: Medical Code(s): R06.00 - Dyspnea, unspecified (8) Stented coronary artery Problem details: Current visit: No Status: Chronic Category: Surgical Code(s): Z95.5 - Presence of coronary angioplasty implant and graft (9) Syncope Current visit: Yes Status: Acute Category: Medical Code(s): R55 - Syncope and collapse (10) Bradycardia Current visit: Yes Status: Acute Category: Medical Code(s): R00.1 - Bradycardia, unspecified - Assessment and plan all Dx Assessment and Plan for all problems:: Patient is status post catheterization and has been admitted overnight for vital signs monitoring. There is been discussion of pacemaker placement and cardiology service will make that decision. check a digoxin level.
[2018-02-23 05:55] LABS: Basophils % 0.2 % (0.1-2.0); Eosinophils # 0.2 K/mm3 (0.0-0.4); Hematocrit 43.4 % (42.0-52.0); Hemoglobin 14.1 g/dL (14.1-18.0); Lymphocytes # 2.9 K/mm3 (0.7-4.5); Lymphocytes % 32.9 K/mm3 (10-50); Mean Corpuscular HGB Conc 32.5 g/dL (31.8-35.4); Mean Corpuscular Hemoglobin 31.5 pg (27.0-31.2); Mean Platelet Volume 7.3 fl (7.4-10.4); Monocytes # 0.6 K/mm3 (0.1-1.0); Monocytes % 6.5 % (1.7-9.3); Neutrophils # 5.1 K/mm3 (1.8-7.8); Neutrophils % 58.4 % (37.0-80.0); Platelet Count 210 K/mm3 (142-424); Red Blood Count 4.48 M/mm3 (4.60-6.20); Red Cell Distribution Width 12.8 % (11.5-17.5); White Blood Count 8.7 K/mm3 (4.8-10.8)
[2018-02-23 06:04] LABS: Anion Gap 12.8 mEq/L (5-15); Potassium 4.8 mmoL/L (3.5-5.1)
--- NOTE | 2018-02-23 07:48 | Pharmacy Consult Notes ---
[facility] Pharmacy VTE Monitoring - Patient Demographics Admission date: 02/22/18 Report Date: 02/23/18 Time: 07:48 Allergies/Adverse Reactions: Patient Allergies No Known Drug Allergies Allergy (Unknown, Verified 02/22/18 21:21) Height: 1.78 m Weight: 67.642 kg Patient Problems: Current Active Problems Unstable angina (Acute) COPD (chronic obstructive pulmonary disease) (Acute) Syncope (Acute) Bradycardia (Acute) CAD (coronary artery disease) (Chronic) - VTE Risk Labs: VTE Related Lab Results Hgb 14.1 g/dL (14.1-18.0) 02/23/18 05:35 Hct 43.4 % (42.0-52.0) 02/23/18 05:35 Plt Count 210 K/mm3 (142-424) 02/23/18 05:35 PT 11.1 seconds (9.4-11.8) 02/22/18 10:35 INR 1.03 (0.9-1.1) 02/22/18 10:35 BUN 14 mg/dL (7-18) D 02/23/18 05:35 Creatinine 0.78 mg/dL (0.70-1.30) 02/23/18 05:35 Estimated Creat Clear 73 mL/min (0-300) 02/23/18 05:35 Was VTE Risk Assessment Performed: Yes VTE Score: 4 VTE Risk Level: Low Risk - Prophylaxis VTE Prophylaxis Ordered?: Yes Types of VTE Prophylaxis: TEDS Knee High Location of Applied Device: Bilateral Lower Extremeties - VTE Diagnosis Confirmed Treatment or plan recommended: Continue Current Treatment
--- NOTE | 2018-02-23 08:00 | Progress Note ---
Internal Medicine - PN: Subj *Date: 02/23/18 *Time: 07:59 Interval history: Overall patient feels well, no pain, has not been up and around. Exam Vital signs and Labs for Last 24 Hours: Temp Pulse Resp BP Pulse Ox 98.3 F 46 L 16 101/63 97 02/23/18 05:54 02/23/18 05:54 02/23/18 05:54 02/23/18 05:54 02/23/18 05:54 Laboratory Results - last 24 hr 02/23/18 05:35: Sodium 141, Potassium 4.8, Chloride 105, Carbon Dioxide 28, Anion Gap 12.8, BUN 14 D, Creatinine 0.78, Estimated Creat Clear 73, Estimated GFR 101, Est GFR ( Amer) 122, Glucose 91 02/23/18 05:35: WBC 8.7, RBC 4.48 L, Hgb 14.1, Hct 43.4, MCV 97.0 H, MCH 31.5 H , MCHC 32.5, RDW 12.8, Plt Count 210, MPV 7.3 L, Neut % (Auto) 58.4, Lymph % ( Auto) 32.9, [place] % (Auto) 6.5, Eos % (Auto) 2.0, Baso % (Auto) 0.2, Neut # (Auto ) 5.1, Lymph # (Auto) 2.9, [place] # (Auto) 0.6, Eos # (Auto) 0.2, Baso # (Auto) 0.0 I & O for Last 24 hours: Intake & Output 02/20/18 02/21/18 02/22/18 02/23/18 11:59 11:59 11:59 11:59 Intake Total 130 / 130 Output Total 960 / 960 Balance -830 / -830 Weight 149 lb 2 oz Narrative: Heart rate in the low 40s, sinus bradycardia. Yesterday was in the 30s. Patient is pleasant and talkative, heart rate regular but bradycardic, lungs are clear, no perfusion deficits. Assessment and Plan (1) CAD (coronary artery disease) Current visit: Yes Status: Chronic Qualifiers: Category: Medical Code(s): I25.10 - Atherosclerotic heart disease of [place] coronary artery without angina pectoris (2) COPD (chronic obstructive pulmonary disease) Current visit: Yes Status: Acute Category: Medical Code(s): J44.9 - Chronic obstructive pulmonary disease, unspecified (3) Unstable angina Current visit: Yes Status: Acute Category: Medical Code(s): I20.0 - Unstable angina (4) Abnormal EKG Current visit: No Status: Acute Category: Medical Code(s): R94.31 - Abnormal electrocardiogram [ECG] [EKG] (5) Ex-smoker Current visit: No Status: Acute Category: Social Hx Code(s): Z87.891 - Personal history of nicotine dependence (6) Oxygen dependent Current visit: No Status: Acute Category: Medical Code(s): Z99.81 - Dependence on supplemental oxygen (7) Dyspnea Current visit: No Status: Chronic Qualifiers: Dyspnea type: dyspnea on exertion Qualified Code(s): R06.09 - Other forms of dyspnea Category: Medical Code(s): R06.00 - Dyspnea, unspecified (8) Stented coronary artery Problem details: Current visit: No Status: Chronic Category: Surgical Code(s): Z95.5 - Presence of coronary angioplasty implant and graft (9) Syncope Current visit: Yes Status: Acute Category: Medical Code(s): R55 - Syncope and collapse (10) Bradycardia Current visit: Yes Status: Acute Category: Medical Code(s): R00.1 - Bradycardia, unspecified - Assessment and plan all Dx Assessment and Plan for all problems:: Reviewed cardiology notes. Continue medications. Anticipate pacemaker placement today.
--- NOTE | 2018-02-23 11:26 | Progress Note ---
Subjective Date: 02/23/18 Time: 08:00 Principal diagnosis: chest pain Interval history: 63 year old white male admitted of chest pain one day ago. Pt underwent left heart catetherization. First diagonal was stented with drug-eluting stent. Pt is doin good. Pt denies chest pain or shortness of breath. Pt's heart rate continues to be at a slow rate in 40's. Pt denies dizziness. combination technician reveals sinus jackie with a rate of 48bpm. BP is stable. Discussed with pt the risk and benefits of a permanent pacemaker. Pt is agreeable. Exam Vital signs and Labs for Last 24 Hours: Temp Pulse Resp BP Pulse Ox 98.2 F 44 L 20 107/67 97 02/23/18 08:00 02/23/18 10:00 02/23/18 10:00 02/23/18 10:00 02/23/18 10:00 Laboratory Results - last 24 hr 02/23/18 05:35: Sodium 141, Potassium 4.8, Chloride 105, Carbon Dioxide 28, Anion Gap 12.8, BUN 14 D, Creatinine 0.78, Estimated Creat Clear 73, Estimated GFR 101, Est GFR ( Amer) 122, Glucose 91 02/23/18 05:35: WBC 8.7, RBC 4.48 L, Hgb 14.1, Hct 43.4, MCV 97.0 H, MCH 31.5 H , MCHC 32.5, RDW 12.8, Plt Count 210, MPV 7.3 L, Neut % (Auto) 58.4, Lymph % ( Auto) 32.9, [place] % (Auto) 6.5, Eos % (Auto) 2.0, Baso % (Auto) 0.2, Neut # (Auto ) 5.1, Lymph # (Auto) 2.9, [place] # (Auto) 0.6, Eos # (Auto) 0.2, Baso # (Auto) 0.0 I & O for Last 24 hours: Intake & Output 02/20/18 02/21/18 02/22/18 02/23/18 23:59 23:59 23:59 23:59 Intake Total 120 / 120 10 / 10 Output Total 350 / 350 610 / 610 Balance -230 / -230 -600 / -600 Weight 149 lb 2 oz - Constitutional no acute distress, thin, cooperative - *Routine Neck Exam Present: supple, full ROM, normal carotid upstroke, trachea midline. Absent: JVD, carotid bruit - *Routine Respiratory Exam Present: CTA bilaterally. Absent: rales, respiratory distress, wheezes, crackles - *Routine Cardiovascular Exam Present: RRR, Normal S1, Normal S2, bradycardia. Absent: murmur, gallop, rubs, JVD - *Routine Abdominal Exam Present: soft, normoactive bowel sounds. Absent: tenderness, guarding - *Routine Extremities Exam Present: full ROM, pulses intact, normal capillary refill. Absent: cyanosis, clubbing, edema, calf tenderness - *Routine Neurological Exam Present: alert, oriented X3, CN II-XII intact, moving all extremities, normal speech Progress Note: A&P (1) CAD (coronary artery disease) Status: Chronic Current Visit: Yes (2) COPD (chronic obstructive pulmonary disease) Status: Acute Current Visit: Yes (3) Unstable angina Status: Acute Current Visit: Yes (4) Abnormal EKG Status: Acute Current Visit: No (5) Ex-smoker Status: Acute Current Visit: No (6) Oxygen dependent Status: Acute Current Visit: No (7) Dyspnea Status: Chronic Current Visit: No (8) Stented coronary artery Problem details: Status: Chronic Current Visit: No (9) Syncope Status: Acute Current Visit: Yes (10) Bradycardia Status: Acute Current Visit: Yes Assessment and Plan for All Diagnoses:: Plan: 1. Schedule for Permanent pacemaker placement today. 2. Current medical management via PCP.
--- NOTE | 2018-02-23 16:18 | Progress Note ---
[facility] Anesthesia Checklist - Patient Identification Patient Identification: Arm Band - Structural Data Admitted From: Home Planned Operative Procedure/s: permanent pacemaker insertion Consent for Planned Operative Procedure(s) Verified: Yes Verified Documents: Surgical Consent, History and Physical - NPO Status Verified Time NPO: 00:00 - Additional verifications Anesthesia Reactions: No - Airway Assessment C-Spine Mobility Assessed: Yes (mp2) TMJ Mobility Assessed: Yes Dentition: Dentures-good fit - Neurological Assessment Level of Consciousness: Awake, Alert - Anesthesia Plan Anesthesia Risk discussed: Yes Anesthesia Plan: Verified ASA Class: III Anesthesia Type: MAC [facility] Anesthesia HX I have reviewed the patient's past medical history: Yes Medical History: Reports:: Atrial Fibrillation, Congestive Heart Failure, Chronic Obstructive Pulmonary Disease (COPD), Coronary Artery Disease, Gastroesophageal Reflux Disease(GERD), Hyperlipidemia, Hypertension, Myocardial Infarction Denies:: Cancer, Congenital Heart Disease, Diabetes Mellitus Type 1, Diabetes Mellitus Type 2, MRSA Other Medical History: Reports: Arthritis Laterality Cases: Left: Carpal Tunnel Release Other Surgeries: Yes: Angiogram, Angioplasty, Cardiac Catheterization, Coronary Stent, Hernia Repair, Other Amputation: No Fractures: No *Family Hx:: Coronary Artery Disease
--- NOTE | 2018-02-23 16:19 | Progress Note ---
[facility] Anesthesia Record Part II Discharge Time: 16:45 Destination: 2nd floor PACU nurse assessment reviewed?: Yes Patient Condition:: Good Anesthesia Complications:: None
--- NOTE | 2018-02-23 16:19 | Progress Note ---
[facility] Anesthesia Record Part I Intake, IV Amount: 800 Estimated blood loss (mL): 10 Urine output (mL): 0 Blood Pressure: 108/67 SaO2: 98 Pulse Rate: 60 Respiratory Rate: 16 Temperature: 97.3 F Patient is:: Drowsy, Stable Stable to PACU at:: 16:15
--- NOTE | 2018-02-23 17:30 | Discharge Summary ---
General - General Admission date: 02/22/18 Discharge date: 02/23/18 HPI HPI: 63-year-old white male presented to cardiology clinic today. 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 Patient taken to the emergency room department for evaluation. Patient regained consciousness after a few seconds. Stated he had been having some chest pain and increased shortness of breath for the past few days. Patient noted to have history of coronary artery disease with stenting. On 10/24/2017, patient was diagnosed with acute non-ST segment elevation myocardial infarction and ischemic ventricular tachycardia. At that time patient underwent left heart catheterization, which revealed ischemic myocardiopathy resulting from severe critical two-vessel coronary artery disease, and chronically occluded dominant RCA which is filled by collaterals from a severe to critical stenosis large wraparound apex LAD system. Severe elevated LVEDP noted. Patient did wear a fitted LifeVest 40 days after the last heart catheterization. Last echocardiogram was on 12/04/2017 which revealed mildly enlarged left atrium with normal left ventricular size with an EF of 40-45% with segmental wall motion abnormality. Mild mitral and tricuspid regurgitation also noted at that time. Initial EKG revealed marked sinus bradycardia with fusion complexes which cannot rule out anterior infarct and lateral injury pattern with a ventricular rate of 45 bpm. Troponin 1 was 0.02. Baseline labs were unremarkable. Chest x-ray revealed COPD with no acute findings. Patient underwent left heart catheterization the a.m.. Successful stenting of the first diagonal artery severe disease was . reduced to 0% with one drug- eluting stent. Chronically occluded RCA noted. Patient currently being treated with Brilinta and aspirin. During postop in the [employer], patient noted to be hypotensive and in sinus bradycardia with a rate of 40 bpm. Patient denies chest pain or shortness of breath. Patient's PCP is Dr. Quiñones and he has been admitted to Dr. Carver service for hypotension and sinus bradycardia. Patient will be monitored through evening. Patient may benefit from pacemaker placement for symptomatic sinus bradycardia heart and severe LVEDP Hospital Course Hospital Course: Patient was admitted overnight, through the night he had heart rates into the low 30 range with significant sinus bradycardia. Continue to feel fatigued the next day, but no evidence of chest pain or shortness of air. Heart rates in the low 40s. Taken to cardiac cath suite for pacemaker implantation which was done without complications and excellent results with heart rates now in the 70s, with paced rhythm. Patient feels much better and wishes to go home. Please see nurse's notes. Patient will be discharged home with Brilinta, aspirin and LDL control, follow- up with cardiology in 1 week. Objective Vital signs: Temp Pulse Resp BP Pulse Ox 97.6 F 60 18 112/76 95 02/23/18 16:44 02/23/18 16:44 02/23/18 16:44 02/23/18 16:44 02/23/18 16:44 Narrative: Patient's alert, pleasant, lungs are clear, heart rate regular. Heart rate much improved. No edema. Results Labs on day of discharge: Labs from last 24 hours 02/23/18 02/23/18 05:35 05:35 WBC 8.7 RBC 4.48 L Hgb 14.1 Hct 43.4 MCV 97.0 H MCH 31.5 H MCHC 32.5 RDW 12.8 Plt Count 210 MPV 7.3 L Neut % (Auto) 58.4 Lymph % (Auto) 32.9 Chaves % (Auto) 6.5 Eos % (Auto) 2.0 Baso % (Auto) 0.2 Neut # (Auto) 5.1 Lymph # (Auto) 2.9 Chaves # (Auto) 0.6 Eos # (Auto) 0.2 Baso # (Auto) 0.0 Sodium 141 Potassium 4.8 Chloride 105 Carbon Dioxide 28 Anion Gap 12.8 BUN 14 D Creatinine 0.78 Estimated Creat Clear 73 Estimated GFR 101 Est GFR ( Amer) 122 Glucose 91 DS: Diagnosis - Discharge Diagnosis (1) CAD (coronary artery disease) Status: Chronic (2) COPD (chronic obstructive pulmonary disease) Status: Acute (3) Unstable angina Status: Acute (4) Abnormal EKG Status: Acute (5) Ex-smoker Status: Acute (6) Oxygen dependent Status: Acute (7) Dyspnea Status: Chronic (8) Stented coronary artery Status: Chronic Problem details: (9) Syncope Status: Acute (10) Bradycardia Status: Resolved Discharge Plan - Patient Discharge Instructions ACTIVITY: No heavy lifting DIET: continue same diet - Follow up Plan Follow up with: Miguel Quiñones [Primary Care Provider] - 02/27/18 Erik Camargo MD [Staff Physician] - 1 week Disposition: Home, Self-Care Prescriptions/Medication Reconciliation: New Aspirin [Aspir 81] 81 mg PO DAILY #30 tablet.dr Continue Atorvastatin Calcium [Lipitor 40mg Tablet] 40 mg PO DAILY #90 tab Carvedilol [Carvedilol 12.5mg Tab] 12.5 mg PO BID #60 tab Digoxin 125 mcg PO DAILY 30 Days #30 tab Sacubitril/Valsartan [Entresto 24/26mg Tablet] 1 tab PO BID #60 tab Ticagrelor [Brilinta 90mg Tablet] 90 mg PO BID #60 tab
--- NOTE | 2018-02-26 08:09 | Procedure Note ---
[facility] Pacemaker - Pacemaker Placement Date of Procedure:: 02/23/18 Time of Procedure:: 15:00 Procedure Performed:: Pocket formation for permanent pacemaker placement. Placement of atrial sensing pacing lead into the right atrial appendage. Placement of ventricular sensing pacing lead into the right ventricular apex. Permanent pacemaker placement. Preoperative Diagnosis:: Symptomatic Bradycardia Sick Sinus Syndrome Complications:: None Estimated Blood Loss (ml):: 10 Technique:: 1% Lidocaine with epinephrine used to anesthetize the left anterior aspect of the chest.Scalpel was used to make the initial cutaneous incision while electrocautery was used to dissect down into the fascia. The fascia was lifted off the pectoralis muscle and digitally manipulated creating a pocket for the pacemaker. The patient was then placed in Trendelenburg position and the subclavian vein was accessed via the Selinger technique. A 7 Uzbek sheath was placed under fluoroscopic guidance into the subclavian vein. Following this, an additional wire was placed into the sheath. Now, with two wires inside the 7 Uzbek sheath, this sheath was removed, maintaining the two wires in the subclavian vein. The sheath and dilator was then placed over one of the wires while keeping the other wire in place within the subclavian vein. The dilator was removed from the sheath. Using fluoroscopic guidance, the ventricular lead was placed into the right ventricular apex, screwed and secured into place. Electronic interrogation proved acceptable thresholds and voltage within the lead. Using 3-0 silk, the ventricular lead was then secured into place. Lead was secured to the fascia using the 3-0 silk. Following this, the sheath was pealed away. An additional 7 Uzbek fresh sheath and dilator was placed over the existing wire. Using fluoroscopic guidance, the atrial lead was then placed into the right atrial appendage and screwed and secured in place. Electrical interrogation demonstrated acceptable thresholds and voltage numbers. The atrial lead was then secured into place using 3-0 silk and then the lead was finally secured to the fascia. With both the atria and ventricular leads in place with acceptable thresholds and sensitivity, the atrial and ventricular leads were placed into the pacemaker generator. Pacemaker generator was then secured to the fascia using 3-0 silk. 1 gram of Ancef was used to flush the pocket. Following the pacemaker being secured to the fascia and in place, Monocryl was used to close the subcutaneous layers while gaston were used to close the cutaneous layer. A pressure dressing was placed and the patient was transferred to the postop holding area in stable condition for postoperative care. - Interrogation Narrative: Generator Model # [id number] Serial # [id number] RA Model # [id number] Serial # [id number] P-wave 3.2 mV Impedance 660 Ohms Threshold 1.75V Pulse Width 0.4ms RVA Model # [id number] Serial # [id number] R-wave 6.3 mV Impedance 700 Ohms Threshold 0.75V Pulse Width 0.4 ms Impression:: Successful pocket formation for permanent pacemaker placement. Successful placement of atrial and sensing pacing lead into the right atrial appendage. Successful placement of ventricular sensing and pacing lead into the right ventricular apex. Successful permanent pacemaker placement. Plan: Postoperative wound care
== END 2018-02-23 19:30 | disposition home or self-care (01) ==
LOC: ER 10:29 → CATHLAB 10:55 → INTOOBSV 13:33 → ICU 13:33
PROVIDERS: ADMIT Internal Medicine Adolescent Medicine; ATTEND Internal Medicine Adolescent Medicine

== ENCOUNTER 2018-03-19 09:44 | Observation (INO) ==
[2018-03-19 10:16] LABS: Basophils % 0.2 % (0.1-2.0); Eosinophils # 0.2 K/mm3 (0.0-0.4); Eosinophils % 1.4 % (0.1-12.0); Hematocrit 42.4 % (42.0-52.0); Hemoglobin 14.5 g/dL (14.1-18.0); Lymphocytes # 2.2 K/mm3 (0.7-4.5); Lymphocytes % 20.1 K/mm3 (10-50); Mean Corpuscular HGB Conc 34.2 g/dL (31.8-35.4); Mean Corpuscular Hemoglobin 32.6 pg (27.0-31.2); Mean Corpuscular Volume 95.4 fl (80-94); Mean Platelet Volume 7.9 fl (7.4-10.4); Monocytes # 0.7 K/mm3 (0.1-1.0); Monocytes % 6.1 % (1.7-9.3); Neutrophils # 7.7 K/mm3 (1.8-7.8); Neutrophils % 72.1 % (37.0-80.0); Platelet Count 228 K/mm3 (142-424); Red Blood Count 4.44 M/mm3 (4.60-6.20); Red Cell Distribution Width 12.2 % (11.5-17.5); White Blood Count 10.7 K/mm3 (4.8-10.8)
--- NOTE | 2018-03-19 10:27 | Emergency Department Note ---
ED Disposition Clinical Impression: Pericardial effusion, Atypical chest pain, CAD (coronary artery disease) Disposition: Still a Patient Condition on Discharge: Fair Referrals: Miguel Quiñones [Primary Care Provider] - - Critical Care Critical Care Time: No Attestation: On 03/19/18, the high probability of a clinically significant, sudden or life threatening deterioration of the following system(s) required my full and direct attention, intervention and personal management. The time I documented below is in addition to time spent performing reported procedures but includes the following listed in this critical care notation. Medical Decision Making - Jacky Inquiry Pt receiving controlled substance: No Jacky was queried for this patient: No Vital Signs: 03/19/18 09:53 03/19/18 10:00 03/19/18 10:23 Temperature 97.7 F Temperature Source Oral Pulse Rate [Apical] 82 83 84 Respiratory Rate 18 18 18 Blood Pressure [Right Arm] 96/54 96/64 104/60 Blood Pressure Mean [Right Arm] 68 74 74 Blood Pressure Source [Right Arm] Automatic Cuff Automatic Cuff Automatic Cuff Blood Pressure Position [Right Arm] Sitting Sitting Sitting 02 Sat by Pulse Oximetry 99 98 98 Oxygen Delivery Method Room Air Room Air Room Air - Lab Data Lab Results 03/19/18 10:00: WBC 10.7, RBC 4.44 L, Hgb 14.5, Hct 42.4, MCV 95.4 H, MCH 32.6 H , MCHC 34.2, RDW 12.2, Plt Count 228, MPV 7.9, Neut % (Auto) 72.1, Lymph % (Auto ) 20.1, Granite % (Auto) 6.1, Eos % (Auto) 1.4, Baso % (Auto) 0.2, Neut # (Auto) 7.7, Lymph # (Auto) 2.2, Granite # (Auto) 0.7, Eos # (Auto) 0.2, Baso # (Auto) 0.0 03/19/18 10:00: Sodium 141, Potassium 4.3, Chloride 104, Carbon Dioxide 26, Anion Gap 15.3 H, BUN 20 H, Creatinine 1.08, Estimated Creat Clear 68, Estimated GFR 69, Est GFR ( Amer) 84, Glucose 156 H, Calcium 8.9, Total Bilirubin 0.9, AST 21, ALT 36, Alkaline Phosphatase 98, Total Creatine Kinase 111, CK-MB (CK-2) 0.6 D, CK-MB (CK-2) Rel Index 0.5, Troponin I < 0.02, Total Protein 7.7, Albumin 3.8, Globulin 3.9 H, Albumin/Globulin Ratio 1.0 L Result diagrams: 03/19/18 10:00 03/19/18 10:00 Orders (Tests/Meds): ED MEDICATIONS Generic Name Dose Route Start Last Admin Trade Name Freq PRN Reason Stop Dose Admin Methocarbamol 500 mg 03/19/18 21:00 03/19/18 10:53 Methocarbamol 500mg Tablet PO 04/18/18 20:59 500 mg BID ESTUARDO Administration Discontinued Medications Generic Name Dose Route Start Last Admin Trade Name Freq PRN Reason Stop Dose Admin Aspirin 243 mg 03/19/18 10:02 03/19/18 10:04 Aspirin 81mg Chewable Tablet PO 03/19/18 10:03 243 mg ONCE ONE Administration ORDERS Category Date Time Status XR chest portable Stat Exams 03/19/18 10:00 Stop Req - CT Data Time Received: 12:22 - ECG Data Tracing #1 Normal sinus rhythm 76/min, baseline artifact, no acute finding involving the ST segment or T-wave. ECG initial impression date: 03/19/18 ECG initial impression time: 10:29 Medical Decision Narrative: I obtain the CT report discussed with Dr. Camargo who recommended the patient to be admitted under his medical doctor obtain an echocardiogram and a cardiology consultation. Informed the patient and the family and they are agreeable for admission. [address] English who agreed to admit the patient for the above plan. Chest Pain HPI - General Chief Complaint: Shortness of Breath/Dyspnea Stated Complaint: Hurting between shoulder blades Time Seen by Provider: 03/19/18 09:55 Mode of Arrival: Wheelchair Limitations: No Limitations Description of Symptoms (Recalled from ER Triage Doc. by RN): Pt reports pain between his shoulder blades, state pain began yesterday morning, reports feeling SOA. Pt reports was seen here 3 weeks ago, had a heart cath and recieved 1 stent placement - History of Present Illness HPI narrative: 64 years old white male who is well known to me from prior admissions with a coronary artery disease that required stenting on February 22, 2018. It was followed by a pacemaker placement due to a breath symptomatic bradycardia. Since 5 AM yesterday he developed left upper thoracic paraspinal sharp pain 6/ 10 that is worse with deep breathing and bending relieved by muscle tightening. The pain is constant and occasionally radiates to the front of the chest on the left side. He denies having exertional dyspnea orthopnea or palpitation. Denies having hemoptysis hematemesis coffee-ground emesis bleeding per rectum or melanotic stool. He denies having numbness or tingling of the upper or lower extremity. He contacted his primary care physician and he advised him to come to the ED and be evaluated. These symptoms are not similar to his prior cardiac pain. MD complaint: other (Left upper thoracic paraspinal pain.) Time: 05:00 (started yesterday.03/18/18.) Duration: constant Activity at onset: during rest, light activity, other (Deep inspiration. ) Pain location: other (Left upper thoracic paraspinal pain. ) Severity: moderate Severity scale (1-10): 6 Quality: sharp Relieving factors: nothing, rest, remaining still (And muscle tightening. ) Exacerbating factors: inspiration, other (Bending. ) Risk Factors for CAD: Hypertension, Smoking Treatments prior to or on arrival for Cardiac Chest Pain: aspirin - Related Data Prior Cardiac Testing/Procedures: Cardiac Angiogram Home Medications Medication Instructions Recorded Confirmed Aspirin [Aspir 81] 81 mg PO DAILY 03/19/18 03/19/18 Previous Rx's Medication Instructions Recorded Atorvastatin Calcium [Lipitor 40mg 40 mg PO DAILY #90 tab 02/23/18 Tablet] Carvedilol [Carvedilol 12.5mg Tab] 12.5 mg PO BID #60 tab 02/23/18 Digoxin 125 mcg PO DAILY 30 Days #30 tab 02/23/18 Sacubitril/Valsartan [Entresto 1 tab PO BID #60 tab 02/23/18 24/26mg Tablet] Ticagrelor [Brilinta 90mg Tablet] 90 mg PO BID #60 tab 02/23/18 Allergies Allergy/AdvReac Type Severity Reaction Status Date / Time No Known Drug Allergies Allergy Unknown Verified 02/22/18 21:21 [facility] History I have reviewed the patient's past medical history: Yes Medical History: Reports:: Atrial Fibrillation, Congestive Heart Failure, Chronic Obstructive Pulmonary Disease (COPD), Coronary Artery Disease, Gastroesophageal Reflux Disease(GERD), Hyperlipidemia, Hypertension, Internal Pacemaker, Myocardial Infarction Denies:: Cancer, Congenital Heart Disease, Diabetes Mellitus Type 1, Diabetes Mellitus Type 2, MRSA Other Medical History: Reports: Arthritis Laterality Cases: Left: Carpal Tunnel Release Other Surgeries: Yes: Angiogram, Angioplasty, Cardiac Catheterization, Coronary Stent, Hernia Repair, Pacemaker, Other Amputation: No Fractures: No Comment: Heart Cath-stents - Social History Smoking Status: Former smoker Tobacco Type: cigarettes Alcohol Intake: never Alcohol Intake Frequency:: other Occupational Status: retired Household Members: none - Psychiatric History Expresses thoughts of harming self/others: None Suicide Plan Description: No Plan Family Hx:: Coronary Artery Disease ROS Obtained: Yes All systems reviewed & no additional complaints Physical Exam - General General appearance: alert, in no apparent distress - Head Head exam: atraumatic, normocephalic, normal inspection - Eye Eye exam: Present: normal appearance, PERRL, EOMI - ENT ENT exam: Present: normal exam, normal oropharynx, mucous membranes moist, TM's normal bilaterally, normal external ear exam - Neck Neck exam: Present: normal inspection, full ROM, trachea midline. Absent: tenderness, meningismus, lymphadenopathy - Chest Chest inspection: Present: normal inspection, symmetric chest wall rise, tenderness (Left upper thoracic paraspinal muscle tenderness to palpation. No spinous process tenderness.) - Respiratory Respiratory exam: Present: normal lung sounds bilaterally. Absent: respiratory distress - Cardiovascular Cardiovascular exam: Present: regular rate, normal rhythm. Absent: JVD - Abdominal Exam Abdominal exam: Present: soft, normal bowel sounds. Absent: distention, tenderness, guarding, rebound, rigidity - Extremities Exam Extremities exam: Present: normal inspection, full ROM, normal capillary refill. Absent: tenderness, calf tenderness - Back Exam Back exam: Present: normal inspection. Absent: tenderness - Neurological Exam Neurological exam: Present: alert, oriented X3, CN II-XII intact, motor sensory deficit, reflexes normal - Psychiatric Psychiatric exam: Present: normal affect, normal mood - Skin Skin exam: Present: warm, dry, intact, normal color - Lymphatic Lymphatic Findings: no adenopathy
[2018-03-19 10:46] LABS: Alanine Aminotransferase 36 U/L (12-78); Albumin Level 3.8 gm/dL (3.4-5.0); Alkaline Phosphatase 98 U/L (46-116); Anion Gap 15.3 mEq/L (5-15); Aspartate Amino Transferase 21 U/L (15-37); Bilirubin,Total 0.9 mg/dL (0.2-1.0); Blood Urea Nitrogen 20 mg/dL (7-18); Calcium 8.9 mg/dL (8.5-10.1); Carbon Dioxide 26 mmol/L (21.0-32.0); Chloride 104 mmol/L (98-107); Creatine Kinase 111 U/L (39-308); Globulin 3.9 gm/dl (1.3-3.2); Glucose 156 mg/dL (74-106); Potassium 4.3 mmoL/L (3.5-5.1); Sodium 141 mmol/L (136-145); Total Protein,Serum 7.7 gm/dL (6.4-8.2)
--- NOTE | 2018-03-19 13:05 | Pharmacy Consult Notes ---
[facility] Pharmacy VTE Monitoring - Patient Demographics Admission date: 03/19/18 Report Date: 03/19/18 Time: 13:05 Allergies/Adverse Reactions: Patient Allergies No Known Drug Allergies Allergy (Unknown, Verified 02/22/18 21:21) Height: 1.78 m Weight: 68.039 kg Patient Problems: Current Active Problems Pericardial effusion (Acute) Atypical chest pain (Acute) CAD (coronary artery disease) (Chronic) - VTE Risk Labs: VTE Related Lab Results Hgb 14.5 g/dL (14.1-18.0) 03/19/18 10:00 Hct 42.4 % (42.0-52.0) 03/19/18 10:00 Plt Count 228 K/mm3 (142-424) 03/19/18 10:00 BUN 20 mg/dL (7-18) H 03/19/18 10:00 Creatinine 1.08 mg/dL (0.70-1.30) 03/19/18 10:00 Estimated Creat Clear 68 mL/min (0-300) 03/19/18 10:00 Clinical Trial Participant: No - Prophylaxis VTE Prophylaxis Ordered?: Yes Types of VTE Prophylaxis: TEDS Knee High
--- NOTE | 2018-03-19 14:48 | Consult Report ---
History of Present Illness Consult date: 03/19/18 Consult reason: chest pain Chief complaint: Chest pain, back pain and SOA Additional Medical History:: 1. Pericardial effusion by CTA and echo, 03/2018 A. Hypotensive with SBP in the 80's 2. Abnormal ECG: Sinus bradycardia with fusion complexes, cannot rule out anterior infarct and lateral injury pattern. Abnormal EKG 3. Coronary artery disease stenting; a. Acute non-ST segment elevation myocardial infarction on 10/24/2017. b. Drug-eluting stent deployment to the mid LAD, 02/2017, in setting of NSTEMI C. On ASA/Brilinta 3. Systolic congestive heart failure A. Echo, 11/2017, EF 40-45% B. Echo, 03/2018, EF about 40% with pericardial effusion with questionable tamponade physiology 4. Dyspnea on exertion 5. Former tobacco abuse 6. Mixed hyperlipidemia History of present illness: 63-year-old white male with recent non-ST elevation UT prompting cardiac catheterization during which coronary stenting was performed in 02/2018, also during the hospitalization patient received pacemaker for symptomatic bradycardia. Patient presented to the emergency department today with several days history of increasing shortness of breath with associated back and chest pain that was worse with deep breathing. Patient had a CT of the chest performed which showed pericardial effusion at 1.8 cm. Echocardiogram was performed also which shows ejection fraction of approximately 40% with questionable tamponade physiology of the right ventricle. Patient's blood pressure in the ER was approximately 110 mmHg after reaching the floor the patient's blood pressure is noted to be 88/70 mmHg manually without appreciable evidence of pulsus paradoxic us. Patient does have muffled heart sounds. Patient is unable to lie flat due to shortness of breath and chest pain. After discussion with Dr. Sneed and Dr. Camargo decision was made to transfer the patient to the [facility] to the services of Dr. Roddy Griffin for definitive therapy. [facility] History Medical History: Reports:: Atrial Fibrillation, Congestive Heart Failure, Chronic Obstructive Pulmonary Disease (COPD), Coronary Artery Disease, Gastroesophageal Reflux Disease(GERD), Hyperlipidemia, Hypertension, Internal Pacemaker, Myocardial Infarction Denies:: Cancer, Congenital Heart Disease, Diabetes Mellitus Type 1, Diabetes Mellitus Type 2, MRSA Other Medical History: Reports: Arthritis Laterality Cases: Left: Carpal Tunnel Release Other Surgeries: Yes: Angiogram, Angioplasty, Cardiac Catheterization, Coronary Stent, Hernia Repair, Pacemaker, Other Amputation: No Fractures: No - *Social History Educational Level: Completed High School Smoking Status: Former smoker Tobacco Type: cigarettes Alcohol Intake: never Alcohol Intake Frequency:: other Occupational Status: retired Housing: house Household Members: none - Psychiatric History Expresses thoughts of harming self/others: None Suicide Plan Description: No Plan *Family Hx:: Coronary Artery Disease Meds Home Medications Medication Instructions Recorded Confirmed Type Aspirin [Aspir 81] 81 mg PO DAILY 03/19/18 03/19/18 History Allergies Allergy/AdvReac Type Severity Reaction Status Date / Time No Known Drug Allergies Allergy Unknown Verified 02/22/18 21:21 Review of Systems - *Cardiovascular Reports chest pain, Reports shortness of breath - *Respiratory Reports shortness of breath, Reports shortness of breath with activity - *Gastrointestinal Denies abdominal pain - *Musculoskeletal Reports back pain Exam Vital signs and Labs for Last 24 Hours: Temp Pulse Resp BP Pulse Ox 98.1 F 80 18 80/50 95 03/19/18 13:52 03/19/18 13:52 03/19/18 13:52 03/19/18 13:52 03/19/18 13:52 Laboratory Results - last 24 hr 03/19/18 10:00: WBC 10.7, RBC 4.44 L, Hgb 14.5, Hct 42.4, MCV 95.4 H, MCH 32.6 H , MCHC 34.2, RDW 12.2, Plt Count 228, MPV 7.9, Neut % (Auto) 72.1, Lymph % (Auto ) 20.1, [place] % (Auto) 6.1, Eos % (Auto) 1.4, Baso % (Auto) 0.2, Neut # (Auto) 7.7, Lymph # (Auto) 2.2, [place] # (Auto) 0.7, Eos # (Auto) 0.2, Baso # (Auto) 0.0 03/19/18 10:00: Sodium 141, Potassium 4.3, Chloride 104, Carbon Dioxide 26, Anion Gap 15.3 H, BUN 20 H, Creatinine 1.08, Estimated Creat Clear 68, Estimated GFR 69, Est GFR ( Amer) 84, Glucose 156 H, Calcium 8.9, Total Bilirubin 0.9, AST 21, ALT 36, Alkaline Phosphatase 98, Total Creatine Kinase 111, CK-MB (CK-2) 0.6 D, CK-MB (CK-2) Rel Index 0.5, Troponin I < 0.02, Total Protein 7.7, Albumin 3.8, Globulin 3.9 H, Albumin/Globulin Ratio 1.0 L 03/19/18 13:20: Troponin I < 0.02 I & O for Last 24 hours: Intake & Output 03/17/18 03/18/18 03/19/18 03/20/18 11:59 11:59 11:59 11:59 Weight 150 lb 146 lb 8 oz - *Routine Neck Exam Absent: JVD, carotid bruit - *Routine Respiratory Exam Present: diminished air movement - *Routine Cardiovascular Exam Present: RRR Comments: Muffled heart sounds noted. - *Routine Abdominal Exam Present: soft. Absent: tenderness - *Routine Extremities Exam Absent: edema - *Routine Neurological Exam Present: alert, oriented X3, moving all extremities Assessment and Plan (1) Cardiac pacemaker in situ Current visit: Yes Status: Acute Category: Medical Code(s): Z95.0 - Presence of cardiac pacemaker (2) Pericardial effusion Current visit: Yes Status: Acute Category: Medical Code(s): I31.3 - Pericardial effusion (noninflammatory) (3) CAD (coronary artery disease) Current visit: Yes Status: Chronic Qualifiers: Category: Medical Code(s): I25.10 - Atherosclerotic heart disease of [place] coronary artery without angina pectoris (4) COPD (chronic obstructive pulmonary disease) Current visit: No Status: Acute Qualifiers: COPD type: unspecified COPD Qualified Code(s): J44.9 - Chronic obstructive pulmonary disease, unspecified Category: Medical Code(s): J44.9 - Chronic obstructive pulmonary disease, unspecified (5) Stented coronary artery Problem details: Current visit: No Status: Chronic Category: Surgical Code(s): Z95.5 - Presence of coronary angioplasty implant and graft - Assessment and plan all Dx Assessment and Plan for all problems:: 1. In the setting of hypertension, pericardial effusion with possible tamponade physiology is best felt that the patient would be better served at a tertiary facility. Dr. Griffin's nurse has been contacted and has agreed to accept the patient on his behalf. This was discussed with the patient and his family and all are in agreement.
--- NOTE | 2018-03-20 06:13 | Cardiology Report ---
PROCEDURE: 2-D M-mode and color Doppler study INDICATIONS FOR THE TEST: Chest pain + COPD+ Heart Murmur Tobacco Smoking Palpitations Fatigue Syncope Edema Hypertension Diabetes Mellitus Rheumatic Fever SOB+CALVERT Obesity Hyperlipidemia Family History HD Additional History PACER 3 WKS AGO, CAD, STENTS PATIENT INFORMATION HEIGHT: 70 WEIGHT:150 GENDER: Male B/P:96/54 2-D/M-MODE INTERPRETATION: 2-D MEASUREMENTS OBSERVED VALUES IN CMS Right Ventricular Dimension (RVDd) 2.2 Interventricular Septum (Thickness)(IVsd) 1.2 Left Ventricular Internal Dimensions(LVIDd) 4.3 Left Ventricular Posterior Wall (Thickness)(LVPWd) 0.8 Aortic Root 2.8 Aortic Cusp Separation 1.9 Left Atrial Dimensions (LAD) 3.6 2D 1. visually estimated ejection fraction approximately 55% with no obvious regional wall motion abnormality. 2. The right atrium and right ventricle are normal size, contractility of the right ventricle is normal. There is a pacemaker lead seen in the right atrium and right ventricle. 3. The aortic valve is minimally thickened and fibrosed. 4. The mitral and tricuspid valvular grossly normal. 5. The pulmonic valve is poorly visualized. 6. There is moderate to large size pericardial effusion noted . Early diastolic collapse raising the concern is for presence of raised intrapericardial pressure. DOPPLER INTERROGATION: 1. The aortic outflow velocities within normal range, there is no aortic stenosis aortic insufficiency 2. The mitral inflow velocities within normal range, there is no obvious variation seen in the mitral inflow velocity. 3. The tricuspid inflow velocity within normal range, there is no obvious variation seen in the tricuspid velocity. Tricuspid regurgitant jet velocity is insufficient for calculation of the right ventricular systolic pressure, inferior vena cava is dilated without significant collapse. CONCLUSION: 1. Normal left ventricular size, preserved left ventricular systolic function, visually estimated ejection fraction of 55% with no obvious regional wall motion abnormality. 2. Moderate to large size pericardial effusion noted, with intermittent buckling and early diastolic collapse is consistent with raised intrapericardial pressure or tamponade physiology. Inferior vena cava is dilated without significant inspiratory collapse. There is organized material seen in the pericardial effusion this is likely represents hemopericardium. 3. Mild mitral and tricuspid regurgitation.
--- NOTE | 2018-05-18 13:41 | H&P/Discharge Summary ---
General - General Admission date:: 03/19/18 Discharge date: 03/19/18 *Admission Date: 03/19/18 *Chief complaint: Chest pain *History of present illness: Patient admitted as noted through ER documentation and cardiology consultation- patient was technically on my service based on hospital service call requirements but I never examined the patient or discussed the case with patient in any way. Patient was managed by cardiology but they have declined to do this H&P document. [facility] History I have reviewed the patient's past medical history: No (I never had a chance to examine the patient) Medical History: Reports:: Atrial Fibrillation, Congestive Heart Failure, Chronic Obstructive Pulmonary Disease (COPD), Coronary Artery Disease, Gastroesophageal Reflux Disease(GERD), Hyperlipidemia, Hypertension, Internal Pacemaker, Myocardial Infarction Denies:: Cancer, Congenital Heart Disease, Diabetes Mellitus Type 1, Diabetes Mellitus Type 2, MRSA Other Medical History: Reports: Arthritis Laterality Cases: Left: Carpal Tunnel Release Other Surgeries: Yes: Angiogram, Angioplasty, Cardiac Catheterization, Coronary Stent, Hernia Repair, Pacemaker, Other Amputation: No Fractures: No - *Social History Educational Level: Completed High School Smoking Status: Former smoker Tobacco Type: cigarettes Alcohol Intake: never Alcohol Intake Frequency:: other Occupational Status: retired Housing: house Household Members: none - Psychiatric History Expresses thoughts of harming self/others: None Suicide Plan Description: No Plan *Family Hx:: Coronary Artery Disease Review of Systems - Review of Systems Review of systems:: unable to obtain Exam Vital signs and Labs for Last 24 Hours: Temp Pulse Resp BP Pulse Ox 98.5 F 87 16 83/54 98 03/19/18 15:41 03/19/18 15:41 03/19/18 15:41 03/19/18 15:41 03/19/18 15:41 Narrative: I was never able to examine the patient, patient managed exclusively by cardiology service, patient was transferred to tertiary care center as noted in card notes. Hospital Course Hospital Course: See cardiology documentation DS: Diagnosis - Discharge Diagnosis (1) Cardiac pacemaker in situ Status: Acute (2) Pericardial effusion Status: Acute (3) CAD (coronary artery disease) Status: Chronic (4) COPD (chronic obstructive pulmonary disease) Status: Chronic (5) Stented coronary artery Status: Chronic Problem details: Discharge Medications Discharge Medications: Home Medications Medication Instructions Recorded Confirmed Type Aspirin [Aspir 81] 81 mg PO DAILY 03/19/18 03/19/18 History Disposition Disposition: Xfer Short-Term Hosp
== END 2018-03-19 17:56 | disposition short-term general hospital (02) ==
LOC: UTC 09:44 → 2ND 09:44
PROVIDERS: ADMIT Internal Medicine Adolescent Medicine; ATTEND Internal Medicine Adolescent Medicine

== ENCOUNTER → 2019-08-22 09:56 | Outpatient (CLI) | payer MEDICARE, SELFPAY ==
--- NOTE | 2019-08-22 09:58 | CA_ITS ---
APPROVED REPORT EXAM: Comprehensive 2D, Doppler, and color-flow Echocardiogram Piper Helper: Ivanna Naranjo, RT(R) Ht: 5 ft 10 in Wt: 147lbs BSA: 1.83 BP: 118/73 mmHg Indications: CAD, hypotension, Pacemaker, AFIB, hx of IA 2D Dimensions LVOT 2.10 cm (M/F) 1.5-2.5 M-Mode Dimensions RVDd 2.70 cm (0.9-2.6) LA Diam 3.50 cm (1.9-4.0) LVDd 4.30 cm (3.5-5.7) Ao Diam 2.60 cm (2.0-3.7) LVDs 3.10 cm (3.5-5.7) AV Cusp 1.90 cm (1.5-2.6) IVSd 0.70 cm (0.6-1.1) PWd 0.80 cm (0.6-1.1) EF (Teich) 54.40% FS 27.90% EDV (Teich) 83.10 mL ESV (Teich) 37.90 mL LV Diastology E/A Ratio 1.2 MED E' 9.16 (< 7 cm/sec) E'/MED E' Ratio 10.20 (>14) LAT E' 13.90 (<10 cm/sec) E/LAT E' Ratio 6.70 (>14) Mitral Valve MV E Max Alonso. 93.80 (40-130 cm/s) MV A Velocity 75.50 (40-130 cm/s) E/A Ratio 1.20 Left Ventricle Left atrium is mildly enlarged, left ventricle is normal size, there is no concentric left ventricular hypertrophy, visually estimated ejection fraction 45 to 50%, there is mild hypokinesis involving the inferior basal, inferior and posterior basal wall. Diastolic parameters are within normal range. Right Ventricle Right atrium and right ventricular normal size and contractility. Aortic Valve Aortic valve is thickened and calcified leaflet continue to display good mobility. Mitral Valve Mitral valve is grossly normal, there is mild mitral regurgitation. Tricuspid Valve Tricuspid valve is grossly normal, there is mild tricuspid regurgitation, tricuspid regurgitation jet velocity is inadequate for calculation of the right ventricular systolic pressure. Pulmonic Valve Pulmonic valve is poorly visualized. Great Vessels Aortic root is normal size. Pericardium No significant pericardial effusion noted. Conclusion 1. Mildly enlarged left atrium, normal left ventricular size, visually estimated ejection fraction of 45 to 50% with multiple segmental wall motion abnormality described above, diastolic parameters are within normal range. 2. Mild mitral and tricuspid regurgitation 3. No significant pericardial effusion noted. Electronically signed by : Marcio Sneed, 08/22/2019 15:04:25
== END ==
PROVIDERS: PCP Internal Medicine; Visit Provider Internal Medicine Cardiovascular Disease
DX: I25.10 Atherosclerotic heart disease of native coronary artery without angina pectoris (principal); I50.20 Unspecified systolic (congestive) heart failure; I95.9 Hypotension, unspecified; Z95.0 Presence of cardiac pacemaker
CPT/HCPCS: 93306

== ENCOUNTER → 2020-10-06 11:00 | Outpatient (CLI) | payer MEDICARE, SELFPAY ==
--- NOTE | 2020-10-06 | CA_ITS ---
APPROVED REPORT Left Upper Extremity Venous Study for DVT. Peach Grower: Beata Grullon CRT Indications Upper Extremity Pain: Upper Extremity Edema: Left Shortness of breath Medications Aspirin Vein Imaging IJV (L): Partially Compressible SCV (L): Partially Compressible Axillary (L): Normal phasic flow is seen. Normal flow, augmentation and compression is seen. No evidence of Deep Vein Thrombosis. No abnormalities are demonstrated. Brachial (L): Normal phasic flow is seen. Normal flow, augmentation and compression is seen. No evidence of Deep Vein Thrombosis. No abnormalities are demonstrated. Basilic (L): Normal phasic flow is seen. Normal flow, augmentation and compression is seen. No evidence of Deep Vein Thrombosis. No abnormalities are demonstrated. Cephalic (L): Normal phasic flow is seen. Normal flow, augmentation and compression is seen. No evidence of Deep Vein Thrombosis. No abnormalities are demonstrated. Radial (L): Normal phasic flow is seen. Normal flow, augmentation and compression is seen. No evidence of Deep Vein Thrombosis. No abnormalities are demonstrated. Ulnar (L): Normal phasic flow is seen. Normal flow, augmentation and compression is seen. No evidence of Deep Vein Thrombosis. No abnormalities are demonstrated. Findings DVT in Internal Jugular, Subclavian vein. Color flow duplex of the left upper extremity demonstrates DVT involving the following Veins: Internal Jugular, Subclavian. Visible Thrombus noted. Conclusion DVT in left Internal Jugular, Subclavian vein. Color flow duplex of the left upper extremity demonstrates DVT involving the following Veins: Internal Jugular, Subclavian. Visible Thrombus noted. Critical Notification Physician Notified Date: 10/06/2020 Time: 12:21 Physician Name: Ishmael Report Read Back Electronically signed by : Jeff Randall MD 10/06/2020 18:14:08
== END ==
PROVIDERS: PCP Internal Medicine; Visit Provider Internal Medicine
DX: M79.89 Other specified soft tissue disorders (principal)
CPT/HCPCS: 93971

== ENCOUNTER → 2021-01-08 12:43 | Outpatient (CLI) | payer MEDICARE, OTHER, SELFPAY | PROVIDERS: PCP Internal Medicine; Visit Provider Nurse Practitioner Family | DX: E78.2 Mixed hyperlipidemia (principal); I25.10 Atherosclerotic heart disease of native coronary artery without angina pectoris; I82.622 Acute embolism and thrombosis of deep veins of left upper extremity; J44.9 Chronic obstructive pulmonary disease, unspecified; R06.09 Other forms of dyspnea; Z95.0 Presence of cardiac pacemaker; Z95.5 Presence of coronary angioplasty implant and graft | CPT/HCPCS: 93306 ==

== ENCOUNTER → 2021-05-05 07:15 | Outpatient (CLI) | payer MEDICARE, OTHER, SELFPAY ==
--- NOTE | 2021-05-05 | CA_ITS ---
APPROVED REPORT Exam: Pharmacologic Technologist: Maria Eugenia Gant, Ht: 5 ft 10 in Wt: 140 lbs BSA: 1.79 m2 HR: 60 bpm BP: 150/84 mmHg Medical History Medications: Carvedilol,,,,, Digoxin,,,,, Apixaban,,,,, AtrovASTATIN,,,,, EnTRESTO,,,,, Stress Test Details Test: LEXISCAN HR Resting HR: 60 bpm Max Heart Rate (APMHR): 155.194072 bpm Max HR Achieved: 90 bpm Target HR (85% APMHR): 131.720402 bpm % of APMHR: 58.06 Recovery HR: 61 bpm BP Resting BP: 150/84 mmHg Max BP: 151/83 mmHg Recovery BP: 132.0/75.0 mmHg ECG Resting ECG: NSR, 1degree AVB, poor R wave progression, ST abn inferiorly Clinical Exercise duration: 04:01 min Highest Stage Achieved: Stress ECG Conclusion Symptoms: SOA, head spinning, No CP Arrhythmias/Ectopy: Brief V paced rhythm when HR dropped below [address]-T Changes: mild exaggeration of baseline ST abns inferiorly Conclusion: Unremarkable Lexiscan stress. Myoview images reported separately. Electronically signed by : Marcio Sneed, 05/06/2021 10:40:05
--- NOTE | 2021-05-05 07:15 | NM_ITS ---
APPROVED REPORT Exam: Nuclear Stress Test Indication: CAD, H/O M.I., HTN, HYPERLIPIDEMIA, SOB, ABN EKG Patient Location: Outpatient Stress Tech: Maria Eugenia Gant ID Tech:KOURTNEY Jordan RT (R)(N)(M) Ht: 5 ft 10 in Wt: 140 lbs HR: 60 bpm BP: 150/84 mmHg BSA: 1.79 m2 BMI: 20.0 History: CAD, H/O M.I., HTN, HYPERLIPIDEMIA, SOB, ABN EKG Procedure: Patient received a 0.4 mg of intravenous Lexiscan, resting heart rate 60 bpm, resting blood pressure 150/84 mmHg, with Lexiscan maximum heart rate achived was 83 bpm which is Less than 85 % of the maximum predicted heart rate and blood pressure was 145/85 mmHg. With Lexiscan, patient denied any complaint of chest pain. SOA, DIZZINESS Electrocardiogram Resting electrocardiogram showed sinus rhythm, with Lexiscan there is less than 1.[address] segment depression noted from the baseline EKG. The EKG portion of the Lexiscan is nondiagnostic. Cardiac Stress and Resting SPECT Images: Cardiac Stress and Resting SPECT images were obtained using technetium 99m Myoview 30.2 mCi stress and 10.39 mCi at rest. Gated SPECT for analysis of segmental wall motion and calculation of the ejection fraction also done. Prone images were also obtained. Cardiac stress and resting SPECT images show moderate to large sized area of fixed defect involving the inferior, posterior and inferior basal wall consistent with an area of transmural myocardial scarring without significant kirstie-infarct ischemia, however there is transient ischemic dilatation of the left ventricle seen, raising the concerns for presence of multivessel coronary artery disease. Computer derived ejection fraction is 39% with marked inferior posterior and inferior basal wall. Right ventricle is normal size and contractility. Conclusion: 1. The EKG portion of the Lexiscan is nondiagnostic. 2. Scintigraphic evidence of moderate to large sized area of myocardial scarring involving the inferior, posterior inferior basal wall without significant kirstie-infarct ischemia, however there is transient ischemic dilatation of the left ventricle seen, raising the concerns for presence of multivessel coronary artery disease, computer derived ejection fraction is 39% with segmental wall motion abnormality described above, right ventricle is normal size and contractility. 3. Abnormal Lexiscan Myoview study. Electronically signed by : Marcio Sneed, 05/06/2021 11:02:39
--- NOTE | 2021-05-05 09:57 | HMH.ITSHM ---
Current Home Medications as stated by this patient Venkata Quinones or patient access representative. []sacubitril, digoxin, clopidogrel, carvedilol, atorvastatin
== END ==
PROVIDERS: PCP Internal Medicine; Visit Provider Physician Assistant
DX: E78.2 Mixed hyperlipidemia (principal); I25.10 Atherosclerotic heart disease of native coronary artery without angina pectoris; I82.622 Acute embolism and thrombosis of deep veins of left upper extremity; J44.9 Chronic obstructive pulmonary disease, unspecified; R06.09 Other forms of dyspnea; Z95.0 Presence of cardiac pacemaker; Z95.5 Presence of coronary angioplasty implant and graft; R94.39 Abnormal result of other cardiovascular function study
CPT/HCPCS: 78452; 93017; A9502; J2785

== ENCOUNTER → 2021-05-24 12:58 | Outpatient (CLI) | payer MEDICARE, OTHER, SELFPAY ==
[2021-05-24 13:35] LABS: Basophils # 0.1 K/mm3 (0-0.2); Basophils % 1.6 % (0.1-2.0); Eosinophils # 0.3 K/mm3 (0.0-0.4); Eosinophils % 4.8 % (0.1-12.0); Hematocrit 42.4 % (42.0-52.0); Hemoglobin 14.5 g/dL (14.1-18.0); Lymphocytes # 2.3 K/mm3 (0.7-4.5); Mean Corpuscular HGB Conc 34.2 g/dL (31.8-35.4); Mean Corpuscular Hemoglobin 31.7 pg (27.0-31.2); Mean Corpuscular Volume 92.9 fl (80-94); Monocytes # 0.5 K/mm3 (0.1-1.0); Monocytes % 7.6 % (1.7-9.3); Neutrophils # 3.3 K/mm3 (1.8-7.8); Platelet Count 179 K/mm3 (142-424); Red Blood Count 4.57 M/mm3 (4.60-6.20); Red Cell Distribution Width 12.6 % (11.5-17.5); White Blood Count 6.5 K/mm3 (4.8-10.8)
[2021-05-24 13:46] LABS: Chloride 108 mmol/L (98-107); Potassium 4.1 mmoL/L (3.5-5.1); Sodium 143 mmol/L (136-145)
[2021-05-24 13:49] LABS: Anion Gap 12.1 mEq/L (5-15); Blood Urea Nitrogen 16 mg/dl (9-20); Calcium 8.7 mg/dl (8.4-10.2); Carbon Dioxide 27 mmol/L (22.0-30.0); Estimated Glomerular Filt Rate 97 ml/min (>60); GFR (African American) 117 ML/MIN (>60); Glucose 97 mg/dl (74-100)
== END ==
PROVIDERS: Visit Provider Physician Assistant
DX: E78.5 Hyperlipidemia, unspecified (principal); I25.10 Atherosclerotic heart disease of native coronary artery without angina pectoris; I82.409 Acute embolism and thrombosis of unspecified deep veins of unspecified lower extremity; J44.9 Chronic obstructive pulmonary disease, unspecified; R06.00 Dyspnea, unspecified; Z95.0 Presence of cardiac pacemaker; Z95.5 Presence of coronary angioplasty implant and graft; Z01.812 Encounter for preprocedural laboratory examination; Z11.52 Encounter for screening for COVID-19
CPT/HCPCS: 36415; 80048; 85025; U0003

== ENCOUNTER 2021-05-25 08:16 | Day surgery (SDC) | payer MEDICARE, OTHER, SELFPAY ==
[2021-05-25] VITALS (10 sets, daily range): BP systolic 99–153; BP diastolic 58–100; PULSE 60; RESP 18; TEMP 36.4; O2SAT 94–100
--- NOTE | 2021-05-25 | IR_ITS ---
APPROVED REPORT Patient Location: Outpatient Hydraulic Punch Press Operator: KOURTNEY Angeles RT (R) PROCEDURES Left heart catheterization Left ventriculogram Selective coronary angiogram INDICATION High risk abnormal Myoview, Systolic congestive heart failure Informed consent was obtained prior to the procedure. COMPLICATIONS None Estimated Blood Loss: Less than 10 mls TECHNIQUE One percent lidocaine used to anesthetize the right anterior aspect of the wrist. The right radial artery was accessed via the Seldinger technique. A 6 Yi sheath was placed in the right radial artery. 2.5 mg of verapamil, 800 mcg of nitroglycerin, 1mg Lidocaine and 5000 U Heparin were given through the arterial sheath. The trap catheter was also used to perform left heart catheterization, left ventriculogram and selective coronary angiogram. At the end of the procedure the sheath was removed good hemostasis was achieved using Traclet band, patient was transferred to the postop holding area in stable condition. ANGIOGRAPHIC RESULTS The left main artery Normal The left anterior descending artery Has a proximal 20% stenosis followed by mid vessel stent which is widely patent free of in-stent restenosis with excellent proximal distal transitioning. The first diagonal artery is a moderate-sized vessel and has a stent in its mid segment which is widely patent free of in-stent restenosis with excellent proximal distal transitioning. The circumflex artery Is a nondominant vessel and has proximal 20 to 30% atheromatous plaque The right coronary artery Is a dominant vessel ostial occluded. Distally the vessel scantly fills via [id number] collaterals The PARK ventriculogram reveals Dilated ventricle with large inferior apical hypokinesis estimate ejection fraction 30 to 35% The left ventricular end-diastolic pressure 10 mmHg IMPRESSION Severe coronary disease as described above with reduced ejection fraction Chronically occluded right coronary PLAN 1. Recommend echocardiogram to better verify ejection fraction. I believe the ejection fraction is less than 39% and probably closer to 30% based on LV gram. I would like to have an echocardiogram to determine if patient requires an AICD 2. Standard therapy for ischemic heart disease 3. Standard therapy for systolic heart failure 4. Aggressive risk factor modification Electronically signed by : Erik Camargo, 05/25/2021 12:36:11
== END 2021-05-25 15:15 | disposition home or self-care (01) ==
LOC: CATHLAB 08:25
PROVIDERS: PCP Internal Medicine; Visit Provider Internal Medicine
DX: R94.39 Abnormal result of other cardiovascular function study (principal); Z79.01 Long term (current) use of anticoagulants; Z95.0 Presence of cardiac pacemaker; Z95.5 Presence of coronary angioplasty implant and graft; J44.9 Chronic obstructive pulmonary disease, unspecified; Z79.899 Other long term (current) drug therapy; I25.10 Atherosclerotic heart disease of native coronary artery without angina pectoris; I82.622 Acute embolism and thrombosis of deep veins of left upper extremity; I48.91 Unspecified atrial fibrillation; I11.0 Hypertensive heart disease with heart failure; I50.22 Chronic systolic (congestive) heart failure; Z82.49 Family history of ischemic heart disease and other diseases of the circulatory system
CPT/HCPCS: 93458; 99152; C1725; C1769; J1644; Q9967

== ENCOUNTER → 2021-06-02 10:01 | Outpatient (CLI) | payer MEDICARE, OTHER, SELFPAY ==
--- NOTE | 2021-06-02 10:02 | CA_ITS ---
APPROVED REPORT EXAM: Comprehensive 2D, Doppler, and color-flow Echocardiogram Roller Inspector And Mender: Korin Marina, RCS, RVS Ht: 5 ft 10 in Wt: 141lbs BSA: 1.80 BP: 123/83 mmHg Indications: SOA, CAD, Pacer, Abn EKG, CM, Stents,Systolic heart failure 2D Dimensions IVSd 0.99 cm M: 0.6-1.2 LVEF (Visual) 41.90 % PWd 0.89 cm M: 0.6 - 1.2 LVDd 3.91 cm M: 4.2 - 5.9 LVDs 3.12 cm M: 2.5 - 4.0 LVOT 2.05 cm (M/F) 1.5-2.5 M-Mode Dimensions LA Diam 3.35 cm (1.9-4.0) Ao Diam 2.78 cm (2.0-3.7) EPSs 1.00 cm TAPSE 1.78 (<1.7) LV Diastology E Decel Time 210.00 (160-240 msec) E/A Ratio 1.05 MED E' 13.20 (< 7 cm/sec) MED A' 8.90 cm/s E'/MED E' Ratio 5.14 (>14) LAT E' 10.20 (<10 cm/sec) LAT A' 7.60 cm/s E/LAT E' Ratio 6.65 (>14) Aortic Valve LVOT Max 79.00 (70-110 cm/s) LVOT VTI 16.23 cm AoV Peak Alonso. 115.00 (50-130 cm/s) AO Peak GR. 5.30 mmHg AO Mean GR. 2.70 (<5 mmHg) AO VTI 24.34 (18-25 cm) ANDREA (VTI) 2.20 (2.5-4.5 cm2) Mitral Valve MV A Velocity 65.00 (40-130 cm/s) E/A Ratio 1.05 MV Decel. Time 210.00 (160-240 ms) MV PHT 53.00 ms Pulmonary Valve PV Peak Velocity 50.00 (50-150 cm/s) Tricuspid Valve TR P. Velocity 228.00 cm/s RAP Estimate 10.00 mmHg RVSP 30.80 mmHg Left Ventricle Left atrium is normal size, left ventricle is normal size, visually estimated ejection fraction 50% with no regional wall motion abnormality, diastolic parameters are within normal range. Right Ventricle Right atrium and right ventricle are normal size and contractility. Aortic Valve Aortic valve is grossly normal, there is no aortic stenosis or aortic insufficiency. Mitral Valve Mitral valve grossly normal, there is trace mitral regurgitation. Tricuspid Valve Tricuspid grossly normal, there is trace tricuspid regurgitation, calculated right ventricular systolic pressure within normal range. Pulmonic Valve Pulmonic valve is poorly visualized. Great Vessels Aortic root is normal size. Pericardium No significant pericardial effusion noted. Conclusion 1. Normal left ventricular size, preserved left ventricular systolic function, visually estimated ejection fraction 50% with no regional wall motion abnormality, diastolic parameters of within normal range. 2. Trace mitral and tricuspid regurgitation, calculated right ventricular systolic pressure is within normal range. 3. No significant pericardial effusion noted. Electronically signed by : Marcio Sneed, 06/04/2021 10:35:03
== END ==
PROVIDERS: PCP Internal Medicine; Visit Provider Physician Assistant
DX: I25.10 Atherosclerotic heart disease of native coronary artery without angina pectoris (principal); I42.9 Cardiomyopathy, unspecified; I50.20 Unspecified systolic (congestive) heart failure; J44.9 Chronic obstructive pulmonary disease, unspecified; R06.09 Other forms of dyspnea; R94.31 Abnormal electrocardiogram [ECG] [EKG]; Z87.891 Personal history of nicotine dependence; Z95.0 Presence of cardiac pacemaker; Z95.5 Presence of coronary angioplasty implant and graft
CPT/HCPCS: 93306

== ENCOUNTER → 2021-06-07 08:32 | Outpatient (CLI) | payer MEDICARE, OTHER, SELFPAY ==
[2021-06-07 09:36] LABS: Anion Gap 13.3 mEq/L (5-15); Blood Urea Nitrogen 16 mg/dl (9-20); Calcium 8.8 mg/dl (8.4-10.2); Carbon Dioxide 30 mmol/L (22.0-30.0); Chloride 104 mmol/L (98-107); Estimated Glomerular Filt Rate 97 ml/min (>60); GFR (African American) 117 ML/MIN (>60); Glucose 135 mg/dl (74-100); Potassium 4.3 mmoL/L (3.5-5.1); Sodium 143 mmol/L (136-145)
== END ==
PROVIDERS: Visit Provider Physician Assistant
DX: I25.10 Atherosclerotic heart disease of native coronary artery without angina pectoris (principal); I42.9 Cardiomyopathy, unspecified; I50.20 Unspecified systolic (congestive) heart failure; J44.9 Chronic obstructive pulmonary disease, unspecified; R06.09 Other forms of dyspnea; R94.31 Abnormal electrocardiogram [ECG] [EKG]; Z87.891 Personal history of nicotine dependence; Z95.0 Presence of cardiac pacemaker; Z95.5 Presence of coronary angioplasty implant and graft
CPT/HCPCS: 36415; 80048

== ENCOUNTER → 2021-09-13 10:43 | Outpatient (CLI) | payer MEDICARE, OTHER, SELFPAY ==
--- NOTE | 2021-09-13 10:54 | XR_ITS ---
PROCEDURE: XR CHEST 2V CLINICAL HISTORY: PLEURISY, COMPARISON: CR CXR2V XR chest 2V from 12/29/2017 CR CXR1VP XR chest portable from 02/22/2018 CR CXR1VP XR chest portable from 02/23/[address] angio chest from 03/19/2018 FINDINGS: The cardiomediastinal silhouette and pulmonary vascularity are within normal limits. Bipolar pacemaker is present from left subclavian approach. Lungs are clear. Mild degenerative changes thoracic spine. IMPRESSION: No acute findings. Dictated by: Jeff Randall MD 09/13/2021 12:36 Jeff Randall MD in [place] 09/13/2021 12:36
[2021-09-13 11:45] LABS: Alanine Aminotransferase 18 U/L (12-78); Albumin Level 4.1 g/dl (3.5-5.0); Albumin/Globulin Ratio 1.6 (1.1-1.8); Alkaline Phosphatase 56 U/L (38-126); Anion Gap 9.2 mEq/L (5-15); Aspartate Amino Transferase 27 U/L (17-59); Bilirubin,Total 0.5 mg/dl (0.2-1.3); Blood Urea Nitrogen 9 mg/dl (9-20); Calcium 8.9 mg/dl (8.4-10.2); Carbon Dioxide 29 mmol/L (22.0-30.0); Chloride 106 mmol/L (98-107); Chol/HDL Ratio 2.2 (1-3.5); Cholesterol 131 mg/dl (140-200); Estimated Glomerular Filt Rate 113 ml/min (>60); GFR (African American) 137 ML/MIN (>60); Globulin 2.5 g/dL (1.3-3.2); Glucose 78 mg/dl (74-100); HDL Cholesterol 60 mg/dl (40-60); Potassium 4.2 mmoL/L (3.5-5.1); Sodium 140 mmol/L (136-145); Total Protein,Serum 6.6 g/dl (6.3-8.2); Triglycerides 52 mg/dl (30-150); VLDL Cholesterol 10 mg/dL (0-40)
[2021-09-13 11:55] LABS: Direct LDL Cholesterol 58.06 mg/dL (100-129)
== END ==
PROVIDERS: Visit Provider Internal Medicine
DX: R09.1 Pleurisy (principal); I25.10 Atherosclerotic heart disease of native coronary artery without angina pectoris; I10 Essential (primary) hypertension; E78.5 Hyperlipidemia, unspecified; J44.9 Chronic obstructive pulmonary disease, unspecified
CPT/HCPCS: 36415; 71046; 80053; 80061

== ENCOUNTER → 2021-10-11 08:18 | Outpatient (CLI) | payer MEDICARE, OTHER, SELFPAY ==
--- NOTE | 2021-10-11 08:24 | CT_ITS ---
PROCEDURE: CT CHEST WO CON CLINICAL INDICATION: RT POSTERIOR CHEST PAIN COMPARISON: CT CHESTW CT chest w con from 01/11/[address] angio chest from 03/19/2018 TECHNIQUE: Axial images obtained with sagittal and coronal reformats. All CT scans at the facility use one or more dose reduction, viz: automated exposure control, ma/kV adjustment per patient size (including targeted exams where dose is matched to indication, i.e. head), or iterative reconstruction technique. FINDINGS: HEART AND MEDIASTINAL STRUCTURES: There is a bipolar pacemaker present from the left subclavian approach. Coronary artery calcifications and/or stents noted. Normal heart size. No mediastinal or hilar mass or adenopathy. Prior anterior cervical disc fusion. LUNGS AND PLEURAL SPACES: COPD with centrilobular emphysema. Lungs are clear of acute infiltrate. No effusions or suspicious nodules identified. There are some scattered areas of scarring BONY STRUCTURES: No acute bony anomalies. Lucent areas present in the posterior aspect of the right 5th rib measuring approximately 7 mm. This is stable and has a benign appearance. No acute fractures or bony destructive process evident. UPPER ABDOMEN: 9 mm rounded area of decreased attenuation is present on the most inferior image of the right hepatic lobe and could even be related to partial volume averaging artifact. ADDITIONAL FINDINGS: No other significant abnormalities. IMPRESSION: COPD with centrilobular emphysema. No acute finding. Nonacute incidental findings as detailed above. Dictated by: Jeff Randall MD 10/12/2021 08:12 Jeff Randall MD in [place] 10/12/2021 08:12
== END ==
PROVIDERS: PCP Internal Medicine; Visit Provider Internal Medicine
DX: R07.89 Other chest pain (principal)
CPT/HCPCS: 71250

== ENCOUNTER 2021-11-17 08:29 | Emergency (ER) | payer MEDICARE, OTHER, SELFPAY ==
--- NOTE | 2021-11-17 08:40 | ECG_ITS ---
APPROVED REPORT Exam: Resting ECG HR:60 bpm ECG Measurements Heart Rate 60 AXES QRSd 110 QRS 84 QT 408 T 72 QTc 408 Conclusion Electronic atrial pacemaker Electronically signed by : Phoenix Carver MD 11/18/2021 13:44:38
--- NOTE | 2021-11-17 08:41 | HMH.EDGENADL ---
ED Disposition Clinical Impression: Syncope and collapse Orbital fracture Qualifiers: Encounter type: initial encounter Fracture type: closed Qualified Code(s): S02.85XA - Fracture of orbit, unspecified, initial encounter for closed fracture Disposition: Home, Self-Care Condition on Discharge: Fair Instructions: DI for Syncope in Adults (Fainting), DI for Orbital Fracture Additional Instructions: Your dose of Entresto is being changed to a lower dose, new prescription has been sent to your pharmacy. Return to the emergency department if feeling faint towards fainting recurs. See Dr. Camargo in the office on 11/22/2021. Apply ice to your eyes 20 minutes 4-5 times a day to reduce swelling and pain. Tylenol for pain. Sleep with head elevated on 2-3 pillows to help reduce swelling. Take antibiotic as prescribed. Schedule an appointment to be seen by [facility]: [phone] Prescriptions: Amoxicillin/Potassium Clav [Augmentin 875-125 Tablet] 1 tab PO Q12H #20 tab Transmission Status: Received by [id number] Sacubitril/Valsartan [Entresto 24/26mg Tablet] 1 tab PO BID #60 tab Transmission Status: Received by [id number] Referrals: Miguel Quiñones [Primary Care Provider] - - Critical Care Critical Care Time: No Attestation: On 11/17/21, the high probability of a clinically significant, sudden or life threatening deterioration of the following system(s) required my full and direct attention, intervention and personal management. The time I documented below is in addition to time spent performing reported procedures but includes the following listed in this critical care notation. Medical Decision Making - Jacky Inquiry Pt receiving controlled substance: No (Patient declines) Vital Signs: 11/17/21 08:46 Temperature 97.8 F Temperature Source Oral Pulse Rate [Left Radial] 67 Respiratory Rate 18 Blood Pressure [Right Arm] 131/77 Blood Pressure Mean [Right Arm] 95 02 Sat by Pulse Oximetry 96 Oxygen Delivery Method Room Air - Lab Data Lab Results 11/17/21 08:43: WBC 8.1, RBC 4.47 L, Hgb 14.9, Hct 45.8, MCV 102.5 H, MCH 33.3 H, MCHC 32.5, RDW 12.4, Plt Count 245, MPV 8.1, Neut % (Auto) 62.2, Lymph % (Auto) 24.7, Fillmore % (Auto) 8.4, Eos % (Auto) 4.1, Baso % (Auto) 0.6, Neut # (Auto) 5.1, Lymph # (Auto) 2.0, [place] # (Auto) 0.7, Eos # (Auto) 0.3, Baso # (Auto) 0.1 11/17/21 08:43: PT 11.1, INR 0.98, APTT 23.5 11/17/21 08:43: Sodium 143, Potassium 3.7, Chloride 105, Carbon Dioxide 32 H, Anion Gap 9.7, BUN 14, Creatinine 0.80, Estimated Creat Clear 69, Estimated GFR 97, Est GFR ( Amer) 117, Glucose 116 H, Calcium 8.8, Troponin I < 0.01 11/17/21 08:43: Digoxin 0.60 Result diagrams: 11/17/21 08:43 11/17/21 08:43 Orders (Tests/Meds): ED MEDICATIONS Generic Name Dose Route Start Last Admin Trade Name Freq PRN Reason Stop Dose Admin Ceftriaxone Sodium 1 gm/ 50 mls @ 100 mls/hr 11/17/21 11:00 11/17/21 11:25 Sodium Chloride IV 12/01/21 10:59 100 mls/hr Q24H ESTUARDO Administration ORDERS Category Date Time Status Cardiology Consult [Consult to Cardiology] [CONS] Cons 11/17/21 10:02 Active Routine Troponin I Q3H Lab 11/17/21 12:00 Ordered Troponin I Q3H Lab 11/17/21 15:00 Ordered - Radiology Data #1 Image(s): Chest Image Reviewed: Yes I have reviewed radiologist's interpretation Ordering Physician: Contreras Osuna MD Date of Service: 11/17/21 Procedure(s): XR chest 2V Accession Number(s): [id number] cc: Hiren Gupta MD; Miguel Quiñones ~ FINAL REPORT CLINICAL HISTORY: syncope COMPARISON: September 13, 2021 FINDINGS: Two views of the chest were obtained. A left subclavian pacer is present. The heart size and pulmonary vascularity are within normal limits. The mediastinum is normal. No acute pulmonary abnormality is identified. There is no pneumothorax. The bony thorax is int
[2021-11-17 08:46] VITALS: BP 131/77; PULSE 67; RESP 18; TEMP 36.6; O2SAT 96; BMI 20.7
--- NOTE | 2021-11-17 08:52 | XR_ITS ---
FINAL REPORT CLINICAL HISTORY: syncope COMPARISON: September 13, 2021 FINDINGS: Two views of the chest were obtained. A left subclavian pacer is present. The heart size and pulmonary vascularity are within normal limits. The mediastinum is normal. No acute pulmonary abnormality is identified. There is no pneumothorax. The bony thorax is intact. IMPRESSION: No acute cardiopulmonary process. Reviewed, Interpreted and Dictated by Hiren Gupta III, MD Transcribed by Cori Al Authenticated by Hiren Gupta III, MD on 11/17/2021 09:56:36 AM [facility]
--- NOTE | 2021-11-17 08:52 | CT_ITS ---
FINAL REPORT CLINICAL HISTORY: syncope; syncope; fell on face today, left eye bruised/swollen/bleeding FINDINGS: Axial images of the head were obtained without contrast. Coronal reformatted images were also obtained. This study was performed with techniques to keep radiation doses as low as reasonably achievable (ALARA). Individualized dose reduction techniques using automated exposure control or adjustment of mA and/or kV according to the patient's size were employed. There is generalized age appropriate atrophy. There is no evidence of intracranial hemorrhage or mass. The ventricular size is within normal limits. There is no evidence of shift of the midline structures. No skull abnormality is seen on the bone window images. There is mucosal thickening in multiple sinuses with a fluid level in right maxillary sinus. IMPRESSION: No acute intracranial abnormality. Sinus disease as above. Reviewed, Interpreted and Dictated by Hiren Gupta III, MD Transcribed by Girma Sutherland Authenticated by Hiren Gupta III, MD on 11/17/2021 10:26:34 AM [facility]
--- NOTE | 2021-11-17 09:03 | CT_ITS ---
FINAL REPORT TECHNIQUE: Axial CT images of the face were obtained without contrast. Coronal reformatted images were also obtained. This study was performed with techniques to keep radiation doses as low as reasonably achievable, (ALARA). Individualized dose reduction techniques using automated exposure control or adjustment of mA and/or kV according to the patient''s size were employed. CLINICAL HISTORY: syncope; fell on face today, left eye bruised/swollen/bleeding FINDINGS: There is a fracture of the left lamina papyracea with mild medial displacement. There is a nondisplaced fracture of the left orbital floor. There is a nondisplaced fracture of the inferior left maxilla. There is no evidence of extraocular muscle herniation. There is a small amount of left intraorbital air. There is diffuse sinus mucosal thickening. There is fluid in the right sphenoid sinus and right maxillary sinus. There is nodular soft tissue in the nasal cavity that may represent nasal polyposis. There is left periorbital soft tissue swelling. The globes are intact. IMPRESSION: Fracture of the left lamina papyracea with mild medial displacement. Nondisplaced fractures of the left orbital floor and inferior left maxilla. No evidence of extraocular muscle herniation. Small amount of left infraorbital air with left periorbital soft tissue swelling. Sinus disease as described. Reviewed, Interpreted and Dictated by Hiren Gupta III, MD Transcribed by Girma Sutherland Authenticated by Hiren Gupta III, MD on 11/17/2021 10:53:03 AM [facility]
--- NOTE | 2021-11-17 09:04 | CT_ITS ---
FINAL REPORT CLINICAL HISTORY: facial trauma; syncope; syncope; fell on face today, left eye bruised/swollen/bleeding FINDINGS: Axial CT images of the cervical spine were obtained without contrast. Sagittal and coronal reformatted images were also obtained. This study was performed with techniques to keep radiation doses as low as reasonably achievable (ALARA). Individualized dose reduction techniques using automated exposure control or adjustment of mA and/or kV according to the patient's size were employed. There is fusion of C4-C6. There is no evidence of fracture or dislocation. There is mild retrolisthesis of C3 on C4 and mild anterolisthesis of C7 on T1. There are severe degenerative changes greatest at C3-4 and C6-7 with disc osteophyte complexes. Multilevel neural foraminal narrowing is greatest at C3-4 and C6-7. There is no evidence of canal stenosis. No paraspinous soft tissue abnormality is seen. Images through the lung apices demonstrate moderate emphysema and mild scarring. IMPRESSION: No fracture or acute bony abnormality identified. Reviewed, Interpreted and Dictated by Hiren Gupta III, MD Transcribed by Girma Sutherland Authenticated by Hiren Gupta III, MD on 11/17/2021 10:47:36 AM [facility]
[2021-11-17 09:17] LABS: Basophils # 0.1 K/mm3 (0-0.2); Basophils % 0.6 % (0.1-2.0); Eosinophils # 0.3 K/mm3 (0.0-0.4); Eosinophils % 4.1 % (0.1-12.0); Hematocrit 45.8 % (42.0-52.0); Hemoglobin 14.9 g/dL (14.1-18.0); Lymphocytes % 24.7 % (10-50); Mean Corpuscular HGB Conc 32.5 g/dL (31.8-35.4); Mean Corpuscular Hemoglobin 33.3 pg (27.0-31.2); Mean Corpuscular Volume 102.5 fl (80-94); Mean Platelet Volume 8.1 fl (7.4-10.4); Monocytes # 0.7 K/mm3 (0.1-1.0); Monocytes % 8.4 % (1.7-9.3); Neutrophils # 5.1 K/mm3 (1.8-7.8); Neutrophils % 62.2 % (37.0-80.0); Platelet Count 245 K/mm3 (142-424); Red Blood Count 4.47 M/mm3 (4.60-6.20); Red Cell Distribution Width 12.4 % (11.5-17.5); White Blood Count 8.1 K/mm3 (4.8-10.8)
[2021-11-17 09:24] LABS: Activated Partial Thrombo Time 23.5 seconds (22.8-30.6); INR 0.98 (0.9-1.1); Prothrombin Time 11.1 seconds (10.1-12.5)
[2021-11-17 09:29] LABS: Anion Gap 9.7 mEq/L (5-15); Blood Urea Nitrogen 14 mg/dl (9-20); Calcium 8.8 mg/dl (8.4-10.2); Carbon Dioxide 32 mmol/L (22.0-30.0); Chloride 105 mmol/L (98-107); Creatinine Clearance Estimated 69 mL/min (50-200); Estimated Glomerular Filt Rate 97 ml/min (>60); GFR (African American) 117 ML/MIN (>60); Glucose 116 mg/dl (74-100); Potassium 3.7 mmoL/L (3.5-5.1); Sodium 143 mmol/L (136-145)
[2021-11-17 09:47] LABS: Troponin I < 0.01 ng/ml (0.00-0.034)
--- NOTE | 2021-11-17 10:27 | PC.NURSE ---
cardiology at bedside interrogating pacemaker
--- NOTE | 2021-11-17 10:50 | CA_ITS ---
APPROVED REPORT EXAM: Comprehensive 2D, Doppler, and color-flow Echocardiogram Him Analyst: Korin Marina, CAROLYN, RVS Ht: 5 ft 10 in Wt: 145lbs BSA: 1.82 BP: 131/77 mmHg Indications: CAD, AL, Afib, COPD, Pacer 2D Dimensions LVOT 1.98 cm (M/F) 1.5-2.5 M-Mode Dimensions RVDd 1.56 cm (0.9-2.6) LA Diam 3.54 cm (1.9-4.0) LVDd 4.56 cm (3.5-5.7) Ao Diam 2.93 cm (2.0-3.7) LVDs 3.42 cm (3.5-5.7) IVSd 0.87 cm (0.6-1.1) PWd 0.72 cm (0.6-1.1) EF (Teich) 49.60% EPSs 1.26 cm FS 25.00% EDV (Teich) 95.40 mL TAPSE 1.87 (<1.7) ESV (Teich) 48.10 mL LV Diastology E Decel Time 210.00 (160-240 msec) E/A Ratio 1.38 MED E' 11.60 (< 7 cm/sec) MED A' 11.20 cm/s E'/MED E' Ratio 7.15 (>14) LAT E' 15.30 (<10 cm/sec) LAT A' 8.40 cm/s E/LAT E' Ratio 5.42 (>14) Aortic Valve LVOT Max 80.00 (70-110 cm/s) LVOT VTI 16.86 cm AoV Peak Alonso. 106.00 (50-130 cm/s) AO Peak GR. 4.50 mmHg AO Mean GR. 2.30 (<5 mmHg) AO VTI 23.56 (18-25 cm) ANDREA (VTI) 2.20 (2.5-4.5 cm2) Mitral Valve MV A Velocity 60.00 (40-130 cm/s) E/A Ratio 1.38 MV Decel. Time 210.00 (160-240 ms) Pulmonary Valve PV Peak Velocity 65.00 (50-150 cm/s) Tricuspid Valve TR P. Velocity 273.00 cm/s RAP Estimate 10.00 mmHg RVSP 39.80 mmHg Left Ventricle Left atrium is mildly enlarged, left ventricular is normal size, mild concentric left ventricular hypertrophy, visually estimated ejection fraction 45 to 50%, there is marked hypokinesis involving the inferior basal wall, and basal septal wall. Diastolic parameters are inconclusive. Right Ventricle Right atrium and right ventricle are mildly enlarged, pacemaker lead seen in the right atrium and right ventricle. Contractility of the right ventricle is normal. Aortic Valve Aortic valve is minimally thickened and calcified without aortic stenosis or aortic insufficiency. Mitral Valve Mitral valve is grossly normal, there is mild mitral regurgitation. Tricuspid Valve Tricuspid valve grossly normal, there is mild tricuspid regurgitation, calculated right ventricular systolic pressure 39 mmHg. Pulmonic Valve Pulmonic valve is poorly visualized. Great Vessels Aortic root is normal size. Inferior vena cava is poorly visualized. Pericardium No significant pericardial effusion noted. Conclusion 1. Biatrial enlargement, normal left ventricular size, visually estimated ejection fraction 45 to 50% with segmental wall motion abnormality described above, diastolic parameters are inconclusive. 2. Mildly enlarged right ventricle with normal contractility. 3. Mild mitral and tricuspid regurgitation, calculated right ventricular systolic pressure is 39 mmHg. 4. No significant pericardial effusion. 5. Inferior vena cava is poorly visualized. Electronically signed by : Marcio Sneed MD 11/17/2021 20:03:48
--- NOTE | 2021-11-17 11:22 | HMH.CNCARD ---
History of Present Illness Consult date: 11/17/21 Requesting physician: Contreras Osuna Chief complaint: Syncope Additional Medical History:: 1. Symptomatic Pericardial effusion by CTA and echo, 03/2018 A. S/p pericardiocentesis, Dr. Griffin, 03/[address] [employer] Pacemaker implanted, 02/23/2018, for SSS and symptomatic bradycardia. A. History of A. fib controlled on digoxin and coreg. Pacer interrogation 11/17/2021 revealed 0% AT/AF burden. 3. Coronary artery disease stenting; A. Acute NSTEMI on 02/2017, ALBERTO to mild LAD B. ACS, ALBERTO to 1st diagonal, 02/2018 C. LHC, 05/2021, chronic RCA occlusion with left to right collaterals, mild to mod disease of LAD and Circ. EF est 30-35%. D. Echo, 05/2021, EF 50% 4. Systolic congestive heart failure A. Echo, 11/2017, EF 40-45% B. Echo, 03/2018, EF about 40% with pericardial effusion with questionable tamponade physiology C. Echo, 05/2021, 1. Normal left ventricular size, preserved left ventricular systolic function, visually estimated ejection fraction 50% with no regional wall motion abnormality, diastolic parameters of within normal range. 2. Trace mitral and tricuspid regurgitation, calculated right ventricular systolic pressure is within normal range. 3. No significant pericardial effusion noted. Electronically signed by : Marcio Sneed, 06/04/2021 10:35:03 5. Former tobacco abuse A. COPD 6. GERD 7. Mixed hyperlipidemia 8. Possible syncope vs fall with head/left orbital trauma and memory loss, 11/17/[address] of head negative B. Left periorbital fractures noted C. Troponins normal D. Pacer interrogation negative for arrhythmias. History of present illness: States he had a syncopal episode and injured his left eye. He says he was feeling perfectly fine and was walking to the barn and the next thing he knew he was striking his face on the ground. He did not have any premonitory symptoms of chest pain, shortness of breath, headache, abdominal pain, diaphoresis, dizziness or any feeling of unwellness. Also, after the syncopal episode he again felt completely normal without symptoms. Previous history of a syncopal episode a few years ago, he was told it was his heart, he has a pacemaker. History of AR and cardiac stent placement 2017. History of cardiomyopathy. He says he does not have a defibrillator. No recent illness, no new medications. No seizure activity noted. No incontinence. Patient's brother was behind him when incident happened. The above per Dr. Osuna Pt confirms account as above. No memory of events causing the fall/trauma. States he had obtained a scoop of feed for livestock and was walking through a gate and the next thing he remembers is waking up on ground. Denies any recent angina symptoms but does relate some low BP readings at home (not sure if his home machine is accurate). No history of seizure. Pacer interrogated without arrhythmias today. Leads and pacer appear to be functioning appropriately. Preliminary echo shows EF 50%. [facility] History Medical History: Reports:: Atrial Fibrillation, Congestive Heart Failure, Chronic Obstructive Pulmonary Disease (COPD), Coronary Artery Disease, Gastroesophageal Reflux Disease(GERD), Hyperlipidemia, Hypertension, Internal Pacemaker, Lung Disease, Myocardial Infarction Denies:: Cancer, Congenital Heart Disease, Diabetes Mellitus Type 1, Diabetes Mellitus Type 2, MRSA, Seizures *Have you ever received a pneumonia vaccine?: No *Have you received a flu vaccine this season?: No Other Medical History: Reports: Arthritis Laterality Cases: Left: Carpal Tunnel Release Other Surgeries: Yes: Angiogram, Angioplasty, Cardiac Catheterization, Coronary Stent, Hernia Repair, Pacemaker, Other Amputation: No Fractures: No - *Social History Smoking Status: Never smoker Tobacco Type: cigarettes Alcohol Intake: never Alcohol Intake Frequency:: other Substance Use Type: denies use *O
[2021-11-17 11:54] VITALS: BP 127/71; PULSE 71; RESP 16; TEMP 36.6; O2SAT 98
== END 2021-11-17 11:57 | disposition home or self-care (01) ==
PROVIDERS: Emergency Provider Emergency Medicine; PCP Internal Medicine
DX: R55 Syncope and collapse (principal); S02.85XA Fracture of orbit, unspecified, initial encounter for closed fracture; W18.39XA Other fall on same level, initial encounter; Y92.79 Other farm location as the place of occurrence of the external cause; I25.10 Atherosclerotic heart disease of native coronary artery without angina pectoris; I25.2 Old myocardial infarction; Z95.0 Presence of cardiac pacemaker; Z95.5 Presence of coronary angioplasty implant and graft; I48.0 Paroxysmal atrial fibrillation; J44.9 Chronic obstructive pulmonary disease, unspecified; I10 Essential (primary) hypertension; K21.9 Gastro-esophageal reflux disease without esophagitis; E78.5 Hyperlipidemia, unspecified; Z79.899 Other long term (current) drug therapy
CPT/HCPCS: 70450; 70486; 71046; 72125; 80048; 80162; 84484; 85025; 85610; 85730; 93005; 93306; 96365; 99283; J0696

== ENCOUNTER → 2021-11-25 09:58 | Outpatient (CLI) | payer MEDICARE, OTHER, SELFPAY ==
--- NOTE | 2021-11-25 09:59 | CA_ITS ---
FINAL REPORT TECHNIQUE: Color Doppler, duplex Doppler and short scale sonography of the bilateral neck arterial vasculature was performed. Velocities were measured in the carotid arteries. Stenosis evaluation based on the validated velocity criteria. CLINICAL HISTORY: HTN, HLD, hx ID, CAD with 2 cardiac stents, 2 syncopal episodes(one 2 years ago and one 1 week ago), pacemaker. FINDINGS: The peak systolic velocity of the right common carotid artery is 106 cm/s. The peak systolic velocity of the right internal carotid artery is 110 cm/s and end diastolic velocity 26 cm/s. The ICA/CCA ratio is 1.1. A mild amount of plaque is present. The right external carotid artery is patent. The right vertebral artery is patent with antegrade flow. The peak systolic velocity of the left common carotid artery is 130 cm/s. The peak systolic velocity of the left internal carotid artery is 137 cm/s and end diastolic velocity 30 cm/s. The ICA/CCA ratio is 0.95. A mild amount of plaque is present. The left external carotid artery is patent.The left vertebral artery is patent with antegrade flow. IMPRESSION: Less than 50% right carotid stenosis. 50-69% left carotid stenosis but only mild plaque. This is of uncertain accuracy and recommend CTA or MRA to further evaluate. Bilateral patent vertebral arteries with antegrade flow. Reviewed, Interpreted and Dictated by Hiren Gupta III, MD Transcribed by Cori Al Authenticated by Hiren Gupta III, MD on 11/25/2021 11:15:22 AM [facility]
== END ==
PROVIDERS: PCP Internal Medicine; Visit Provider Nurse Practitioner Family
DX: R55 Syncope and collapse (principal)
CPT/HCPCS: 93880

== ENCOUNTER → 2021-12-20 09:04 | Outpatient (CLI) | payer MEDICARE, OTHER, SELFPAY ==
[2021-12-20 10:18] LABS: Blood Urea Nitrogen 13 mg/dl (9-20); Estimated Glomerular Filt Rate 97 ml/min (>60); GFR (African American) 117 ML/MIN (>60)
== END ==
PROVIDERS: PCP Internal Medicine; Visit Provider Urology
DX: E78.5 Hyperlipidemia, unspecified (principal); I25.10 Atherosclerotic heart disease of native coronary artery without angina pectoris; I42.9 Cardiomyopathy, unspecified; J44.9 Chronic obstructive pulmonary disease, unspecified; R55 Syncope and collapse; S02.85XA Fracture of orbit, unspecified, initial encounter for closed fracture; Z87.891 Personal history of nicotine dependence; Z95.0 Presence of cardiac pacemaker; Z95.5 Presence of coronary angioplasty implant and graft
CPT/HCPCS: 36415; 82565; 84520

== ENCOUNTER → 2021-12-27 12:46 | Outpatient (CLI) | payer MEDICARE, OTHER, SELFPAY ==
--- NOTE | 2021-12-27 12:46 | CT_ITS ---
FINAL REPORT TECHNIQUE: Thin section axial CT with IV contrast supplemented with multiplanar reconstruction under CT angiogram protocol. This study was performed with techniques to keep radiation doses as low as reasonably achievable (ALARA). Individualized dose reduction techniques using automated exposure control or adjustment of mA and/or kV according to the patient's size were employed. NASCET criteria was utilized during interpretation. CLINICAL HISTORY: abnormal carotid u/s COMPARISON: Carotid ultrasound dated November 25, 2021 FINDINGS: The cervical vasculature is suboptimally opacified. The carotid bifurcations are widely patent. The vertebral arteries are suboptimally visualized but appear symmetric. There is anterior and interbody fusion of C4-5 and C5-6. There are moderate changes of centrilobular emphysema. There is mucoperiosteal thickening and air-fluid levels in the bilateral maxillary sinuses consistent with acute and chronic sinusitis. IMPRESSION: No significant stenosis. Moderate centrilobular emphysema. Anterior and interbody fusion of C4-5 C5-6. Acute and chronic bilateral maxillary sinusitis. Reviewed, Interpreted and Dictated by Romulo Grove MD Transcribed by Girma Sutherland Authenticated by Romulo Grove MD on 12/27/2021 02:58:31 PM [facility]
== END ==
PROVIDERS: PCP Internal Medicine; Visit Provider Urology
DX: E78.5 Hyperlipidemia, unspecified (principal); I25.10 Atherosclerotic heart disease of native coronary artery without angina pectoris; I42.9 Cardiomyopathy, unspecified; J44.9 Chronic obstructive pulmonary disease, unspecified; R55 Syncope and collapse; R94.39 Abnormal result of other cardiovascular function study; S02.85XA Fracture of orbit, unspecified, initial encounter for closed fracture; Z87.891 Personal history of nicotine dependence; Z95.0 Presence of cardiac pacemaker; Z95.5 Presence of coronary angioplasty implant and graft
CPT/HCPCS: 70498; Q9967

== ENCOUNTER → 2022-03-14 13:32 | Outpatient (CLI) | payer MEDICARE, OTHER, SELFPAY ==
[2022-03-14 14:34] LABS: Basophils # 0.1 K/mm3 (0-0.2); Basophils % 1.6 % (0.1-2.0); Eosinophils # 0.2 K/mm3 (0.0-0.4); Eosinophils % 2.9 % (0.1-12.0); Hemoglobin 14.3 g/dL (14.1-18.0); Lymphocytes # 1.6 K/mm3 (0.7-4.5); Lymphocytes % 30.2 % (10-50); Mean Corpuscular HGB Conc 33.2 g/dL (31.8-35.4); Mean Corpuscular Hemoglobin 32.6 pg (27.0-31.2); Mean Corpuscular Volume 98.4 fl (80-94); Mean Platelet Volume 9.2 fl (7.4-10.4); Monocytes # 0.5 K/mm3 (0.1-1.0); Neutrophils % 56.2 % (37.0-80.0); Platelet Count 198 K/mm3 (142-424); Red Blood Count 4.37 M/mm3 (4.60-6.20); Red Cell Distribution Width 12.7 % (11.5-17.5); White Blood Count 5.4 K/mm3 (4.8-10.8)
[2022-03-14 15:11] LABS: Alanine Aminotransferase 15 U/L (12-78); Albumin Level 3.7 g/dl (3.5-5.0); Albumin/Globulin Ratio 1.6 (1.1-1.8); Alkaline Phosphatase 62 U/L (38-126); Anion Gap 10.1 mEq/L (5-15); Aspartate Amino Transferase 23 U/L (17-59); Bilirubin,Total 0.6 mg/dl (0.2-1.3); Blood Urea Nitrogen 13 mg/dl (9-20); Calcium 8.6 mg/dl (8.4-10.2); Carbon Dioxide 28 mmol/L (22.0-30.0); Chloride 107 mmol/L (98-107); Chol/HDL Ratio 2.2 (1-3.5); Cholesterol 109 mg/dl (140-200); Estimated Glomerular Filt Rate 97 ml/min (>60); GFR (African American) 117 ML/MIN (>60); Globulin 2.3 g/dL (1.3-3.2); Glucose 99 mg/dl (74-100); HDL Cholesterol 49 mg/dl (40-60); Potassium 4.1 mmoL/L (3.5-5.1); Sodium 141 mmol/L (136-145); Triglycerides 52 mg/dl (30-150); VLDL Cholesterol 10 mg/dL (0-40)
[2022-03-14 15:21] LABS: Direct LDL Cholesterol 42.46 mg/dL (100-129)
[2022-03-14 15:40] LABS: Prostate Specific Ag Screen 2.4 ng/ml (0.0-4.0)
== END ==
PROVIDERS: PCP Internal Medicine; Visit Provider Internal Medicine
DX: I47.2 Ventricular tachycardia; I25.10 Atherosclerotic heart disease of native coronary artery without angina pectoris; E78.5 Hyperlipidemia, unspecified; J44.9 Chronic obstructive pulmonary disease, unspecified; Z12.5 Encounter for screening for malignant neoplasm of prostate
CPT/HCPCS: 80053; 80061; 85025; G0103

== ENCOUNTER → 2022-09-14 12:38 | Outpatient (CLI) | payer MEDICARE, OTHER, SELFPAY ==
[2022-09-14 14:41] LABS: Chloride 103 mmol/L (98-107)
[2022-09-14 14:42] LABS: Potassium 4.4 mmoL/L (3.5-5.1); Sodium 143 mmol/L (136-145)
[2022-09-14 14:44] LABS: Alanine Aminotransferase 16 U/L (12-78); Aspartate Amino Transferase 26 U/L (17-59); Blood Urea Nitrogen 13 mg/dl (9-20); Estimated Glomerular Filt Rate 97 ml/min (>60); GFR (African American) 117 ML/MIN (>60)
[2022-09-14 14:45] LABS: Albumin Level 4.2 g/dl (3.5-5.0); Albumin/Globulin Ratio 1.8 (1.1-1.8); Alkaline Phosphatase 73 U/L (38-126); Anion Gap 13.4 mEq/L (5-15); Bilirubin,Total 0.4 mg/dl (0.2-1.3); Calcium 9.4 mg/dl (8.4-10.2); Carbon Dioxide 31 mmol/L (22.0-30.0); Chol/HDL Ratio 2.3 (1-3.5); Cholesterol 118 mg/dl (140-200); Globulin 2.3 g/dL (1.3-3.2); Glucose 67 mg/dl (74-100); HDL Cholesterol 51 mg/dl (40-60); Total Protein,Serum 6.5 g/dl (6.3-8.2); Triglycerides 107 mg/dl (30-150); VLDL Cholesterol 21 mg/dL (0-40)
[2022-09-14 14:57] LABS: Direct LDL Cholesterol 40.98 mg/dL (100-129)
== END ==
PROVIDERS: PCP Internal Medicine; Visit Provider Internal Medicine
DX: I25.10 Atherosclerotic heart disease of native coronary artery without angina pectoris (principal); I95.1 Orthostatic hypotension; E78.5 Hyperlipidemia, unspecified; J44.9 Chronic obstructive pulmonary disease, unspecified
CPT/HCPCS: 80053; 80061

== ENCOUNTER → 2023-03-02 12:45 | Outpatient (CLI) | payer MEDICARE, OTHER, SELFPAY ==
--- NOTE | 2023-03-02 12:49 | CA_ITS ---
FINAL REPORT TECHNIQUE: Color Doppler, duplex Doppler and short scale sonography of the bilateral neck arterial vasculature was performed. Velocities were measured in the carotid arteries. Stenosis evaluation based on the validated velocity criteria. CLINICAL HISTORY: CURTIS,HTN,CAD FINDINGS: The peak systolic velocity of the right common carotid artery is 76 cm/s. The peak systolic velocity of the right internal carotid artery is 109 cm/s and end diastolic velocity 26 cm/s. A small amount of plaque is present. The right external carotid artery is patent. The right vertebral artery is patent with antegrade flow. The peak systolic velocity of the left common carotid artery is 90 cm/s. The peak systolic velocity of the left internal carotid artery is 142 cm/s and end diastolic velocity 44 cm/s. A small amount of plaque is present. The left external carotid artery is patent.The left vertebral artery is patent with antegrade flow. IMPRESSION: Less than 50% bilateral carotid stenoses. Bilateral patent vertebral arteries with antegrade flow. If indicated, CTA or MRA could further evaluate. Reviewed, Interpreted and Dictated by Hiren Gupta III, MD Transcribed by Mili Lindquist Authenticated and [facility]
== END ==
PROVIDERS: PCP Internal Medicine; Visit Provider Physician Assistant
DX: I65.23 Occlusion and stenosis of bilateral carotid arteries (principal)
CPT/HCPCS: 93880

== ENCOUNTER → 2023-03-14 12:57 | Outpatient (CLI) | payer MEDICARE, OTHER, SELFPAY ==
[2023-03-14 14:25] LABS: Basophils % 0.3 % (0.1-2.0); Eosinophils # 0.2 K/mm3 (0.0-0.4); Hematocrit 43.8 % (42.0-52.0); Hemoglobin 14.4 g/dL (14.1-18.0); Lymphocytes # 1.7 K/mm3 (0.7-4.5); Lymphocytes % 30.9 % (10-50); Mean Corpuscular HGB Conc 32.8 g/dL (31.8-35.4); Mean Corpuscular Hemoglobin 32.2 pg (27.0-31.2); Mean Corpuscular Volume 98.2 fl (80-94); Mean Platelet Volume 9.3 fl (7.4-10.4); Monocytes # 0.5 K/mm3 (0.1-1.0); Monocytes % 8.8 % (1.7-9.3); Platelet Count 174 K/mm3 (142-424); Red Blood Count 4.46 M/mm3 (4.60-6.20); Red Cell Distribution Width 12.3 % (11.5-17.5); White Blood Count 5.3 K/mm3 (4.8-10.8)
[2023-03-14 14:36] LABS: Alanine Aminotransferase 20 U/L (12-78); Albumin Level 3.8 g/dl (3.5-5.0); Albumin/Globulin Ratio 1.7 (1.1-1.8); Alkaline Phosphatase 64 U/L (38-126); Aspartate Amino Transferase 27 U/L (17-59); Bilirubin,Total 0.6 mg/dl (0.2-1.3); Blood Urea Nitrogen 16 mg/dl (9-20); Calcium 8.3 mg/dl (8.4-10.2); Carbon Dioxide 30 mmol/L (22.0-30.0); Chloride 100 mmol/L (98-107); Chol/HDL Ratio 1.9 (1-3.5); Cholesterol 105 mg/dl (140-200); Estimated Glomerular Filt Rate 96 ml/min (>60); GFR (African American) 117 ML/MIN (>60); Globulin 2.3 g/dL (1.3-3.2); Glucose 84 mg/dl (74-100); HDL Cholesterol 55 mg/dl (40-60); Sodium 141 mmol/L (136-145); Total Protein,Serum 6.1 g/dl (6.3-8.2); Triglycerides 132 mg/dl (30-150); VLDL Cholesterol 26 mg/dL (0-40)
[2023-03-14 14:48] LABS: Direct LDL Cholesterol 42.31 mg/dL (100-129)
[2023-03-14 15:06] LABS: Prostate Specific Ag Screen 2.6 ng/ml (0.0-4.0)
== END ==
PROVIDERS: PCP Internal Medicine; Visit Provider Internal Medicine
DX: I25.10 Atherosclerotic heart disease of native coronary artery without angina pectoris (principal); Z86.718 Personal history of other venous thrombosis and embolism; Z12.5 Encounter for screening for malignant neoplasm of prostate
CPT/HCPCS: 80053; 80061; 85025; G0103

== ENCOUNTER → 2023-03-22 13:32 | Outpatient (CLI) | payer MEDICARE, OTHER, SELFPAY ==
--- NOTE | 2023-03-22 14:07 | CT_ITS ---
FINAL REPORT TECHNIQUE: Axial images through the abdomen and pelvis were performed without contrast. This study was performed with techniques to keep radiation doses as low as reasonably achievable, (ALARA). Individualized dose reduction techniques using automated exposure control or adjustment of mA and/or kV according to the patient's size were employed. CLINICAL HISTORY: GROSS HEMATURIA x 2 weeks FINDINGS: ABDOMEN: There is mild bibasilar atelectasis or scar. The heart size is normal. Limited images of the liver are unremarkable. The spleen is normal. No adrenal mass is identified. The aorta is normal in caliber. There is no significant free fluid or adenopathy. There is a less than 3 mm nonobstructing left renal stone. There is no hydronephrosis. There is a 12 mm low-attenuation right renal mass which cannot be accurately characterized without contrast, may represent a cyst. PELVIS: The appendix is normal. The prostate is enlarged. The urinary bladder is unremarkable. There is no significant free fluid or adenopathy. There are moderate degenerative changes of the lumbar spine with levoscoliosis. IMPRESSION: Nonobstructing left renal stone. Enlarged prostate. Reviewed, Interpreted and Dictated by Hiren Gupta III, MD Transcribed by Mary Cummings Authenticated and [facility]
== END ==
PROVIDERS: PCP Internal Medicine; Visit Provider Internal Medicine
DX: R31.0 Gross hematuria (principal)
CPT/HCPCS: 74176

== ENCOUNTER → 2023-04-04 16:26 | Outpatient (CLI) | payer MEDICARE, OTHER, SELFPAY ==
--- NOTE | 2023-04-04 16:29 | US_ITS ---
FINAL REPORT TECHNIQUE: Ultrasound images of the kidneys and bladder were obtained. CLINICAL HISTORY: KIDNEY CYST COMPARISON: 03/06/2023 FINDINGS: The right kidney measures 9.7 cm in length. It is normal in echogenicity. There is no hydronephrosis. There is a 1.0 cm right renal cyst. The left kidney measures 10.3 cm in length. It is normal in echogenicity. There is no hydronephrosis. The spleen is unremarkable. IMPRESSION: Right renal cyst. Reviewed, Interpreted and Dictated by Romulo Grove MD Transcribed by Mary Cummings Authenticated and [facility]
== END ==
PROVIDERS: PCP Internal Medicine; Visit Provider Internal Medicine
DX: N28.1 Cyst of kidney, acquired (principal)
CPT/HCPCS: 76770

== ENCOUNTER → 2023-09-13 14:15 | Outpatient (CLI) | payer MEDICARE, OTHER, SELFPAY ==
--- NOTE | 2023-09-13 | CA_ITS ---
APPROVED REPORT EXAM: Comprehensive 2D, Doppler, and color-flow Echocardiogram Foaming Machine Operator: Ivanna Naranjo RT(R) Ht: 5 ft 10 in Wt: 140lbs BSA: 1.79 BP: 118/75 mmHg Indications: SOA, COPD, hyperlipidemia, pacemaker, CM 2D Dimensions LVOT 2.05 cm (M/F) 1.5-2.5 M-Mode Dimensions RVDd 2.00 cm (0.9-2.6) LA Diam 3.44 cm (1.9-4.0) LVDd 4.25 cm (3.5-5.7) Ao Diam 2.94 cm (2.0-3.7) LVDs 3.43 cm (3.5-5.7) IVSd 0.80 cm (0.6-1.1) PWd 0.86 cm (0.6-1.1) EF (Teich) 40.00% FS 19.30% EDV (Teich) 80.80 mL ESV (Teich) 48.50 mL LV Diastology E Decel Time 150.00 (160-240 msec) E/A Ratio 1.2 MED E' 10.90 (< 7 cm/sec) E'/MED E' Ratio 6.85 (>14) LAT E' 12.40 (<10 cm/sec) E/LAT E' Ratio 6.02 (>14) Mitral Valve MV E Max Alonso. 75.00 (40-130 cm/s) MV A Velocity 64.00 (40-130 cm/s) E/A Ratio 1.17 MV Decel. Time 150.00 (160-240 ms) MV PHT 44.00 ms Tricuspid Valve TR P. Velocity 253.00 cm/s RAP Estimate 10.00 mmHg RVSP 35.50 mmHg Left Ventricle The left ventricle is normal size. The left ventricular systolic function is mildly reduced. There is normal left ventricular wall thickness. There is mild global hypokinesis. There is moderate hypokinesis of the inferior and inferoseptal LV hollins. Diastolic function is indeterminate. LVEF is 45-50%. Right Ventricle Right ventricle is mildly dilated. The right ventricular systolic function is normal. Atria The left atrium size is normal. The right atrium size is normal. There is no Doppler evidence of interatrial shunt. Aortic Valve The aortic valve is mildly thickened. There is no aortic valvular stenosis. Trace aortic regurgitation. Mitral Valve The mitral valve leaflets are mildly thickened. No evidence of mitral valve stenosis. Mild mitral regurgitation. Tricuspid Valve The tricuspid valve leaflets are thin and pliable. Mild tricuspid regurgitation. RVSP is 25-30 mmHg. Pulmonic Valve The pulmonary valve is normal in structure. Trace pulmonic regurgitation. Great Vessels The aortic root is normal in size. The ascending aorta is normal in size. IVC is normal in size and collapses >50% with inspiration. Pericardium There is no pericardial effusion. Other Information Study Quality: Fair Conclusion Mildly reduced LV systolic function (LVEF 45-50%). Mildly dilated RV. Mild MR. Electronically signed by : Brooke Vo MD 09/18/2023 19:59:18
== END ==
PROVIDERS: PCP Internal Medicine; Visit Provider Physician Assistant
DX: R06.02 Shortness of breath (principal)
CPT/HCPCS: 93306

== ENCOUNTER → 2023-09-15 12:18 | Outpatient (CLI) | payer MEDICARE, OTHER, SELFPAY ==
[2023-09-15 15:02] LABS: Alanine Aminotransferase 17 U/L (12-78); Albumin/Globulin Ratio 1.5 (1.1-1.8); Alkaline Phosphatase 70 U/L (38-126); Anion Gap 14.8 mEq/L (5-15); Aspartate Amino Transferase 26 U/L (17-59); Bilirubin,Total 0.4 mg/dl (0.2-1.3); Blood Urea Nitrogen 17 mg/dl (9-20); Calcium 9.1 mg/dl (8.4-10.2); Carbon Dioxide 28 mmol/L (22.0-30.0); Chloride 102 mmol/L (98-107); Chol/HDL Ratio 2.4 (1-3.5); Cholesterol 120 mg/dl (140-200); Estimated Glomerular Filt Rate 84 ml/min (>60); GFR (African American) 102 ML/MIN (>60); Globulin 2.6 g/dL (1.3-3.2); Glucose 116 mg/dl (74-100); HDL Cholesterol 49 mg/dl (40-60); Potassium 4.8 mmoL/L (3.5-5.1); Sodium 140 mmol/L (136-145); Total Protein,Serum 6.6 g/dl (6.3-8.2); Triglycerides 113 mg/dl (30-150); VLDL Cholesterol 23 mg/dL (0-40)
[2023-09-15 15:13] LABS: Direct LDL Cholesterol 58.92 mg/dL (100-129)
== END ==
PROVIDERS: PCP Internal Medicine; Visit Provider Internal Medicine
DX: I25.10 Atherosclerotic heart disease of native coronary artery without angina pectoris (principal); E78.5 Hyperlipidemia, unspecified; M15.0 Primary generalized (osteo)arthritis; J44.9 Chronic obstructive pulmonary disease, unspecified
CPT/HCPCS: 80053; 80061

== ENCOUNTER 2024-03-15 13:43 | Outpatient (CLI) | payer MEDICARE, OTHER, SELFPAY ==
[2024-03-15 14:28] LABS: Basophils % 0.5 % (0.1-2.0); Eosinophils # 0.2 K/mm3 (0.0-0.4); Hematocrit 44.9 % (42.0-52.0); Hemoglobin 14.5 g/dL (14.1-18.0); Lymphocytes # 1.9 K/mm3 (0.7-4.5); Lymphocytes % 32.8 % (10-50); Mean Corpuscular HGB Conc 32.3 g/dL (31.8-35.4); Mean Corpuscular Hemoglobin 32.2 pg (27.0-31.2); Mean Corpuscular Volume 99.7 fl (80-94); Mean Platelet Volume 8.6 fl (7.4-10.4); Monocytes # 0.5 K/mm3 (0.1-1.0); Monocytes % 8.5 % (1.7-9.3); Neutrophils # 3.3 K/mm3 (1.8-7.8); Neutrophils % 55.2 % (37.0-80.0); Platelet Count 218 K/mm3 (142-424); Red Cell Distribution Width 13.1 % (11.5-17.5); White Blood Count 5.9 K/mm3 (4.8-10.8)
[2024-03-15 15:17] LABS: Alanine Aminotransferase 24 U/L (12-78); Albumin/Globulin Ratio 1.3 (1.1-1.8); Alkaline Phosphatase 73 U/L (38-126); Anion Gap 13.2 mEq/L (5-15); Aspartate Amino Transferase 33 U/L (17-59); Bilirubin,Total 0.6 mg/dl (0.2-1.3); Blood Urea Nitrogen 23 mg/dl (9-20); Calcium 9.1 mg/dl (8.4-10.2); Carbon Dioxide 28 mmol/L (22.0-30.0); Chloride 102 mmol/L (98-107); Chol/HDL Ratio 2.1 (1-3.5); Cholesterol 131 mg/dl (140-200); Estimated Glomerular Filt Rate 84 ml/min (>60); GFR (African American) 102 ML/MIN (>60); Glucose 78 mg/dl (74-100); HDL Cholesterol 63 mg/dl (40-60); Potassium 4.2 mmoL/L (3.5-5.1); Sodium 139 mmol/L (136-145); Triglycerides 71 mg/dl (30-150); VLDL Cholesterol 14 mg/dL (0-40)
[2024-03-15 15:28] LABS: Direct LDL Cholesterol 62.95 mg/dL (100-129)
[2024-03-15 15:47] LABS: Prostate Specific Ag Screen 4.6 ng/ml (0.0-4.0)
== END 2024-03-15 23:59 | disposition home or self-care (01) ==
LOC: LAB.DROPOF 13:45
PROVIDERS: PCP Internal Medicine; Visit Provider Internal Medicine
DX: E78.5 Hyperlipidemia, unspecified (principal); Z12.5 Encounter for screening for malignant neoplasm of prostate; I25.10 Atherosclerotic heart disease of native coronary artery without angina pectoris; I51.9 Heart disease, unspecified; M15.0 Primary generalized (osteo)arthritis; Z95.0 Presence of cardiac pacemaker
CPT/HCPCS: 80053; 80061; 85025; G0103

== ENCOUNTER 2024-06-13 05:25 | Emergency (ER) | payer MEDICARE, OTHER, SELFPAY ==
[2024-06-13] VITALS (10 sets, daily range): BP systolic 127–152; BP diastolic 67–116; PULSE 85–116; RESP 20–22; TEMP 37.7–38.2; O2SAT 85–98; BMI 19.9
[2024-06-13 06:08] LABS: Basophils % 0.4 % (0.1-2.0); Eosinophils % 0.2 % (0.1-12.0); Hematocrit 48.5 % (42.0-52.0); Hemoglobin 16.2 g/dL (14.1-18.0); Lymphocytes # 1.2 K/mm3 (0.7-4.5); Lymphocytes % 14.6 % (10-50); Mean Corpuscular HGB Conc 33.4 g/dL (31.8-35.4); Mean Corpuscular Hemoglobin 33.4 pg (27.0-31.2); Mean Corpuscular Volume 100.1 fl (80-94); Mean Platelet Volume 8.4 fl (7.4-10.4); Monocytes # 0.3 K/mm3 (0.1-1.0); Monocytes % 3.7 % (1.7-9.3); Neutrophils # 6.9 K/mm3 (1.8-7.8); Neutrophils % 81.1 % (37.0-80.0); Platelet Count 261 K/mm3 (142-424); Red Blood Count 4.84 M/mm3 (4.60-6.20); White Blood Count 8.5 K/mm3 (4.8-10.8)
--- NOTE | 2024-06-13 06:09 | ED_ITS ---
Discharge Plan Disposition Patient Disposition: Xfer Short-Term Hosp Chief Complaint: Abdominal Pain Prescriptions Prescriptions: No Action aspirin [Adult Aspirin Regimen] 81 mg tablet,delayed release (DR/EC) 81 mg PO DAILY carvedilol 6.25 mg tablet 3.125 mg PO BID Entresto 24-26 mg tablet 0.5 tab PO BID Qty: 90 3RF atorvastatin 40 mg tablet See Rx Instructions .ROUTE .COMPLEX Qty: 90 3RF Dose Instruction: TAKE 1 TABLET BY MOUTH ONCE DAILY FOR CHOLESTEROL Rx Instructions: TAKE 1 TABLET BY MOUTH ONCE DAILY FOR CHOLESTEROL spironolactone [Aldactone] 25 mg tablet 12.5 mg PO DAILY Qty: 30 3RF Jardiance 10 mg tablet See Rx Instructions .ROUTE .COMPLEX Qty: 90 3RF Dose Instruction: Take 1 tablet by mouth once daily Rx Instructions: Take 1 tablet by mouth once daily clopidogrel 75 MG tablet 75 mg PO DAILY Referrals Follow up/Referrals: Miguel Quiñones MD [Primary Care Provider] - See instructions Clinical Impressions Clinical Impression: Acute perforated appendicitis, Acidosis, lactic, Abdominal pain, DAISY (acute kidney injury), Hyperbilirubinemia, Sepsis Instructions Patient Instructions: DI for Acute Abdominal Pain Print Language Print Language: Italian Discharge ED Provider: Bryan Alfaro General Adult HPI <Tari Yun MD - Last Filed: 06/13/24 07:14> General Chief complaint: Abdominal Pain Stated complaint: abd pain, dry heaving Time Seen by Provider: 06/13/24 05:49 Mode of Arrival: Ambulatory Source of Information: Patient Limitations: No Limitations Description of Symptoms (Recalled from ER Triage Doc. by RN): Pt. presented to the ED with c/o low abdominal pain. Stareted on Monday. also c/o decreased appetite. some nausea, no vomiting or fevers at home. History of Present Illness HPI narrative: 69-year-old male presents to the ER for complaint of lower abdominal pain. Patient states this started on Monday and seems to be getting worse. He reports decreased appetite, some nausea, no vomiting, no diarrhea. He states he has not had a bowel movement since Monday. Patient does report a history of bilateral inguinal hernia repair. He does not report any current hernias. He does report discomfort in the bilateral testicles. Patient states he has mild discomfort with urinating, no flank pain, no hematuria. He reports no fevers however his temperature was 100F on arrival in the ER. Patient reports he still has his appendix. Patient reports his urinary stream is slow to start but this is not new. Patient reports that a few people close to him have had similar symptoms and have spontaneously recovered. Related Data Home Medications ?Medication ?Instructions ?Recorded ?Confirmed clopidogrel 75 mg tablet 75 mg PO DAILY Blood thinner 05/25/21 04/30/24 aspirin 81 mg tablet,delayed 81 mg PO DAILY 03/28/22 04/30/24 release (Adult Aspirin Regimen) carvedilol 6.25 mg tablet 3.125 mg PO BID 10/02/23 04/30/24 Previous Rx's ?Medication ?Instructions ?Recorded atorvastatin 40 mg tablet See Rx Instructions .Route 08/30/23 .COMPLEX #90 tabs sacubitril 24 mg-valsartan 26 mg 0.5 tab PO BID #90 tabs 08/30/23 tablet (Entresto) spironolactone 25 mg tablet 12.5 mg (1/2 x 25 mg) PO DAILY #30 01/29/24 (Aldactone) tabs empagliflozin 10 mg tablet See Rx Instructions .Route 02/05/24 (Jardiance) .COMPLEX #90 tabs Allergies Allergy/AdvReac Type Severity Reaction Status Date / Time No Known Drug Allergies Allergy Unknown Verified 04/30/24 08:33 [facility] [place] <Tari Yun MD - Last Filed: 06/13/24 07:14> [facility] [place] Disclaimer: The information contained in this section may have been updated after the patient was seen, as this information can be updated by other users. Medical History HFrEF (heart failure with reduced ejection fraction) Cardiomyopathy DVT (deep venous thrombosis) HLD (hyperlipidemia) Hypotension Cardiac pacemaker in situ COPD (chronic obstructive pulmonary disease) Dyspnea CAD (coronary artery disease) Surgical History Stented coronary artery Social History Smoking Status: Former smoker tobacco type: cigarettes second hand exposure: No alcohol intake: never substance use type: denies use current occupational status: unemployed Travel in the last 8 weeks: None household members: none housing: house current occupational exposures/hazards: No caffeine: Yes <Tari Yun MD - Last Filed: 06/13/24 07:14> ROS Obtained: Yes All systems reviewed & no additional complaints except as documented Constitutional Constitutional: Denies chills, Denies fever(s), Denies headache(s) and Denies weakness Eyes Eyes: Denies change in vision ENT Ears, Nose, Mouth, and Throat: Denies dizziness, Denies headache(s), Denies nasal congestion and Denies sore throat Cardiovascular Cardiovascular: Denies chest pain, Denies dyspnea and Denies leg edema Respiratory Respiratory: Denies cough and Denies dyspnea Gastrointestinal Gastrointestingal: Reports abdominal pain, constipation and nausea; Denies diarrhea or vomiting Genitourinary Male Genitourinary: Reports difficulty urinating (Urine stream slow to start, baseline), Denies flank pain and Denies hematuria Musculoskeletal Musculoskeletal: Denies arthralgias, Denies myalgias, Denies numbness and Denies tingling Integumentary/Breasts Skin/Breast: Denies change in pigmentation Neurologic Neurologic: Denies dizziness, Denies headache(s), Denies numbness, Denies tingling and Denies weakness Physical Exam <Tari Yun MD - Last Filed: 06/13/24 07:14> General General appearance: alert and in no apparent distress (Ill-appearing but nontoxic) Head Head exam: atraumatic and normocephalic Eye Eye exam: Present PERRL and EOMI ENT ENT exam: Present mucous membranes moist Neck Neck exam: Present normal inspection and full ROM Chest Chest inspection: Present symmetric chest wall rise Respiratory Respiratory exam: Present normal lung sounds bilaterally; Absent respiratory distress, wheezes or stridor Cardiovascular Cardiovascular exam: Present normal rhythm and tachycardia Abdominal Exam Abdominal exam: Present soft, tenderness (Moderately tender diffusely, severely tender in the lower abdomen) and guarding (Voluntary); Absent distention or rebound Extremities Exam Extremities exam: Present full ROM; Absent edema Back Exam Back exam: Absent CVA tenderness (R) or CVA tenderness (L) Neurological Exam Neurological exam: Present alert, oriented X3, CN II-XII intact and normal gait; Absent motor sensory deficit Psychiatric Psychiatric exam: Present normal affect and normal mood Skin Skin exam: Present warm and dry Medical Decision Making <Tari Yun MD - Last Filed: 06/13/24 07:14> Medical Records Medical records reviewed: Yes I reviewed the patient's medical records. Jacky Inquiry Pt receiving controlled substance: No Vital Signs: 06/13/24 05:26 06/13/24 06:00 06/13/24 06:15 Temperature 100 F H Temperature Source Oral Pulse Rate 110 H 102 H Pulse Rate [Right] 116 H Respiratory Rate 20 20 Blood Pressure 139/82 139/82 Blood Pressure [Right Arm] 151/116 H Blood Pressure Mean [Right Arm] 127 Blood Pressure Source Blood Pressure Source [Right Arm] Automatic Cuff Blood Pressure Position Blood Pressure Position [Right Arm] Sitting 02 Sat by Pulse Oximetry 94 L 95 85 L Oxygen Delivery Method Room Air Room Air Oxygen Flow Rate (LPM) 06/13/24 06:30 06/13/24 06:30 06/13/24 07:00 Temperature Temperature Source Pulse Rate 102 H 102 H 91 H Pulse Rate [Right] Respiratory Rate 20 Blood Pressure 152/79 H 152/79 H 132/78 Blood Pressure [Right Arm] Blood Pressure Mean [Right Arm] Blood Pressure Source Automatic Cuff Blood Pressure Source [Right Arm] Blood Pressure Position Supine Blood Pressure Position [Right Arm] 02 Sat by Pulse Oximetry 97 97 97 Oxygen Delivery Method Room Air Room Air Oxygen Flow Rate (LPM) 2 06/13/24 07:30 06/13/24 08:00 Temperature Temperature Source Pulse Rate 87 98 H Pulse Rate [Right] Respiratory Rate Blood Pressure 128/74 135/85 Blood Pressure [Right Arm] Blood Pressure Mean [Right Arm] Blood Pressure Source Blood Pressure Source [Right Arm] Blood Pressure Position Blood Pressure Position [Right Arm] 02 Sat by Pulse Oximetry 98 98 Oxygen Delivery Method Room Air Oxygen Flow Rate (LPM) Lab Data Lab Results 06/13/24 05:35: WBC 8.5, RBC 4.84, Hgb 16.2, Hct 48.5, MCV 100.1 H, MCH 33.4 H, MCHC 33.4, RDW 13.0, Plt Count 261, MPV 8.4, Neut % (Auto) 81.1 H, Lymph % (Auto) 14.6, Centre % (Auto) 3.7, Eos % (Auto) 0.2, Baso % (Auto) 0.4, Neut # (Auto) 6.9, Lymph # (Auto) 1.2, Centre # (Auto) 0.3, Eos # (Auto) 0.0, Baso # (Auto) 0.0, PT 12.2, INR 1.10, Sodium 140, Potassium 3.5, Chloride 102, Carbon Dioxide 23, Anion Gap 18.5 H, BUN 17, Creatinine 1.30 H, Estimated Creat Clear 48, Estimated GFR 55 L, Est GFR ( Amer) 66, Glucose 210 H, Lactate 6.3 H, Calcium 9.0, Total Bilirubin 1.4 H, AST 38, ALT 39, Alkaline Phosphatase 97, Total Protein 8.0, Albumin 4.5, Globulin 3.5 H, Albumin/Globulin Ratio 1.3, Lipase 38 06/13/24 06:05: Urine Color Yellow, Urine Appearance Clear, Urine pH 6.0, Ur Specific Organ >= 1.030, Urine Protein 2+, Urine Glucose (UA) 3+, Urine Ketones Negative, Urine Blood 3+, Urine Nitrate Negative, Urine Bilirubin 1+ A, Urine Urobilinogen 0.2, Ur Leukocyte Esterase Negative, Urine RBC 20-50, Urine WBC 3-5, Ur Squamous Epith Cells 3-5, Amorphous Sediment Trace, Urine Bacteria 1+, Urine Mucus Trace 06/13/24 06:08: SARS-CoV-2 (PCR) Not detected, Influenza A Untype (PCR) Not detected, Influenza Type B (PCR) Not detected 06/13/24 05:35 06/13/24 05:35 Orders (Tests/Meds): ED MEDICATIONS Discontinued Medications Generic Name Dose Route Start Last Admin Trade Name Freq PRN Reason Stop Dose Admin Lactated Ringer's 1,000 mls @ 945 mls/hr 06/13/24 05:55 06/13/24 07:49 Lactated Ringer's 1000 Ml Bag IV 06/13/24 07:55 Not Given .Q1H4M ESTUARDO Piperacillin Sod/Tazobactam 100 mls @ 200 mls/hr 06/13/24 05:57 06/13/24 06:25 Sod 4.5 gm/ Sodium Chloride IV 06/13/24 06:26 200 mls/hr ONCE ONE Administration Iopamidol 80 ml 06/13/24 06:58 06/13/24 06:59 Iopamidol-370 (76%);100ml Bottle IV 06/13/24 06:59 80 ml ONCE ONE Administration Morphine Sulfate 4 mg 06/13/24 06:01 06/13/24 06:13 Morphine 4mg/Ml Syringe IV 06/13/24 06:02 4 mg ONCE ONE Administration Ondansetron HCl 4 mg 06/13/24 06:01 06/13/24 06:16 Ondansetron 4mg/2ml Vial IV 06/13/24 06:02 4 mg ONCE ONE Administration Sodium Chloride 50 ml 06/13/24 06:58 06/13/24 06:58 0.9 % Sodium Chloride 50 Ml Vial IV 06/13/24 06:59 50 ml ONCE ONE Administration Sodium Chloride 10 ml 06/13/24 06:58 06/13/24 06:58 Sodium Chloride 0.9% 10ml Syr (Rad Only) IV 06/13/24 06:59 10 ml ONCE ONE Administration ORDERS Category Date Time Status CT angio abdomen pelvis Stat Cat Scan 06/13/24 06:26 Completed CBC w/Auto Diff [Complete Blood Count Auto Diff] Stat Lab 06/13/24 05:35 Completed CMP [Comprehensive Metabolic Panel] Stat Lab 06/13/24 05:35 Completed Lactic Acid Stat Lab 06/13/24 05:35 Completed Lipase Stat Lab 06/13/24 05:35 Completed PT INR [Prothrombin Time INR] Stat Lab 06/13/24 05:35 Completed Rapid PCR Covid and Flu A/B Stat Lab 06/13/24 06:08 Completed Urinalysis and Microscopic Stat Lab 06/13/24 06:05 Completed Blood Culture Stat Micro 06/13/24 05:55 Received Medical Decision Narrative: In summary, this 69-year-old male presents to the emergency department today with abdominal pain, nausea. On initial evaluation patient is tachycardic, borderline febrile, ill-appearing but nontoxic, not an extremis. Abdominal exam is notable for diffuse tenderness with severe tenderness in the lower abdomen. No CVA tenderness, pulmonary exam benign, cardiac exam only notable for tachycardia. Differential diagnosis includes but is not limited to viral infection, mesenteric adenitis, appendicitis, bowel obstruction, urinary tract infection, urinary retention, renal colic, hernia, colitis, diverticulitis, electrolyte abnormality, dehydration, kidney dysfunction. Based on these concerns, I ordered serum labs, CT imaging of the abdomen/pelvis. I am concerned for sepsis with the patient being tachycardic, temperature of 100 orally, severely tender abdominal exam. He is receiving sepsis bolus as well as Zosyn. Patient received morphine, Zofran, fluids, Zosyn for treatment. Labs personally reviewed demonstrate no leukocytosis or anemia, normal platelet count, patient does have neutrophil predominance, PT/INR normal, CMP with mildly elevated anion gap, creatinine elevation consistent with DAISY, lactic acidosis, lactate 6.3, mild hyperbilirubinemia at 1.4 but no transaminitis, UA with RBCs but negative for findings of infection, COVID/flu negative. CT abdomen pelvis personally interpreted demonstrates abnormality in the right lower quadrant concerning for potentially ruptured appendix/fluid collection, however radiology read is pending. Patient handed off to Dr. Rees for continued management pending CT results. <Bryan Alfaro MD - Last Filed: 06/13/24 08:40> Vital Signs: 06/13/24 05:26 06/13/24 06:00 06/13/24 06:15 Temperature 100 F H Temperature Source Oral Pulse Rate 110 H 102 H Pulse Rate [Right] 116 H Respiratory Rate 20 20 Blood Pressure 139/82 139/82 Blood Pressure [Right Arm] 151/116 H Blood Pressure Mean [Right Arm] 127 Blood Pressure Source Blood Pressure Source [Right Arm] Automatic Cuff Blood Pressure Position Blood Pressure Position [Right Arm] Sitting 02 Sat by Pulse Oximetry 94 L 95 85 L Oxygen Delivery Method Room Air Room Air Oxygen Flow Rate (LPM) 06/13/24 06:30 06/13/24 06:30 06/13/24 07:00 Temperature Temperature Source Pulse Rate 102 H 102 H 91 H Pulse Rate [Right] Respiratory Rate 20 Blood Pressure 152/79 H 152/79 H 132/78 Blood Pressure [Right Arm] Blood Pressure Mean [Right Arm] Blood Pressure Source Automatic Cuff Blood Pressure Source [Right Arm] Blood Pressure Position Supine Blood Pressure Position [Right Arm] 02 Sat by Pulse Oximetry 97 97 97 Oxygen Delivery Method Room Air Room Air Oxygen Flow Rate (LPM) 2 06/13/24 07:30 06/13/24 08:00 Temperature Temperature Source Pulse Rate 87 98 H Pulse Rate [Right] Respiratory Rate Blood Pressure 128/74 135/85 Blood Pressure [Right Arm] Blood Pressure Mean [Right Arm] Blood Pressure Source Blood Pressure Source [Right Arm] Blood Pressure Position Blood Pressure Position [Right Arm] 02 Sat by Pulse Oximetry 98 98 Oxygen Delivery Method Room Air Oxygen Flow Rate (LPM) Lab Data Lab Results 06/13/24 05:35: WBC 8.5, RBC 4.84, Hgb 16.2, Hct 48.5, MCV 100.1 H, MCH 33.4 H, MCHC 33.4, RDW 13.0, Plt Count 261, MPV 8.4, Neut % (Auto) 81.1 H, Lymph % (Auto) 14.6, Centre % (Auto) 3.7, Eos % (Auto) 0.2, Baso % (Auto) 0.4, Neut # (Auto) 6.9, Lymph # (Auto) 1.2, Centre # (Auto) 0.3, Eos # (Auto) 0.0, Baso # (Auto) 0.0, PT 12.2, INR 1.10, Sodium 140, Potassium 3.5, Chloride 102, Carbon Dioxide 23, Anion Gap 18.5 H, BUN 17, Creatinine 1.30 H, Estimated Creat Clear 48, Estimated GFR 55 L, Est GFR ( Amer) 66, Glucose 210 H, Lactate 6.3 H, Calcium 9.0, Total Bilirubin 1.4 H, AST 38, ALT 39, Alkaline Phosphatase 97, Total Protein 8.0, Albumin 4.5, Globulin 3.5 H, Albumin/Globulin Ratio 1.3, Lipase 38 06/13/24 06:05: Urine Color Yellow, Urine Appearance Clear, Urine pH 6.0, Ur Specific Organ >= 1.030, Urine Protein 2+, Urine Glucose (UA) 3+, Urine Ketones Negative, Urine Blood 3+, Urine Nitrate Negative, Urine Bilirubin 1+ A, Urine Urobilinogen 0.2, Ur Leukocyte Esterase Negative, Urine RBC 20-50, Urine WBC 3-5, Ur Squamous Epith Cells 3-5, Amorphous Sediment Trace, Urine Bacteria 1+, Urine Mucus Trace 06/13/24 06:08: SARS-CoV-2 (PCR) Not detected, Influenza A Untype (PCR) Not detected, Influenza Type B (PCR) Not detected Orders (Tests/Meds): ED MEDICATIONS Discontinued Medications Generic Name Dose Route Start Last Admin Trade Name Freq PRN Reason Stop Dose Admin Lactated Ringer's 1,000 mls @ 945 mls/hr 06/13/24 05:55 06/13/24 07:49 Lactated Ringer's 1000 Ml Bag IV 06/13/24 07:55 Not Given .Q1H4M ESTUARDO Piperacillin Sod/Tazobactam 100 mls @ 200 mls/hr 06/13/24 05:57 06/13/24 06:25 Sod 4.5 gm/ Sodium Chloride IV 06/13/24 06:26 200 mls/hr ONCE ONE Administration Iopamidol 80 ml 06/13/24 06:58 06/13/24 06:59 Iopamidol-370 (76%);100ml Bottle IV 06/13/24 06:59 80 ml ONCE ONE Administration Morphine Sulfate 4 mg 06/13/24 06:01 06/13/24 06:13 Morphine 4mg/Ml Syringe IV 06/13/24 06:02 4 mg ONCE ONE Administration Ondansetron HCl 4 mg 06/13/24 06:01 06/13/24 06:16 Ondansetron 4mg/2ml Vial IV 06/13/24 06:02 4 mg ONCE ONE Administration Sodium Chloride 50 ml 06/13/24 06:58 06/13/24 06:58 0.9 % Sodium Chloride 50 Ml Vial IV 06/13/24 06:59 50 ml ONCE ONE Administration Sodium Chloride 10 ml 06/13/24 06:58 06/13/24 06:58 Sodium Chloride 0.9% 10ml Syr (Rad Only) IV 06/13/24 06:59 10 ml ONCE ONE Administration ORDERS Category Date Time Status CT angio abdomen pelvis Stat Cat Scan 06/13/24 06:26 Completed CBC w/Auto Diff [Complete Blood Count Auto Diff] Stat Lab 06/13/24 05:35 Completed CMP [Comprehensive Metabolic Panel] Stat Lab 06/13/24 05:35 Completed Lactic Acid Stat Lab 06/13/24 05:35 Completed Lipase Stat Lab 06/13/24 05:35 Completed PT INR [Prothrombin Time INR] Stat Lab 06/13/24 05:35 Completed Rapid PCR Covid and Flu A/B Stat Lab 06/13/24 06:08 Completed Urinalysis and Microscopic Stat Lab 06/13/24 06:05 Completed Blood Culture Stat Micro 06/13/24 05:55 Received Medical Decision Narrative: In summary, this 69-year-old male presents to the emergency department today with abdominal pain, nausea. On initial evaluation patient is tachycardic, borderline febrile, ill-appearing but nontoxic, not an extremis. Abdominal exam is notable for diffuse tenderness with severe tenderness in the lower abdomen. No CVA tenderness, pulmonary exam benign, cardiac exam only notable for tachycardia. Differential diagnosis includes but is not limited to viral infection, mesenteric adenitis, appendicitis, bowel obstruction, urinary tract infection, urinary retention, renal colic, hernia, colitis, diverticulitis, electrolyte abnormality, dehydration, kidney dysfunction. Based on these concerns, I ordered serum labs, CT imaging of the abdomen/pelvis. I am concerned for sepsis with the patient being tachycardic, temperature of 100 orally, severely tender abdominal exam. He is receiving sepsis bolus as well as Zosyn. Patient received morphine, Zofran, fluids, Zosyn for treatment. Labs personally reviewed demonstrate no leukocytosis or anemia, normal platelet count, patient does have neutrophil predominance, PT/INR normal, CMP with mildly elevated anion gap, creatinine elevation consistent with DAISY, lactic acidosis, lactate 6.3, mild hyperbilirubinemia at 1.4 but no transaminitis, UA with RBCs but negative for findings of infection, COVID/flu negative. CT abdomen pelvis personally interpreted demonstrates abnormality in the right lower quadrant concerning for potentially ruptured appendix/fluid collection, however radiology read is pending. Patient handed off to Dr. Alfaro for continued management pending CT results. Dominic: I assumed primary responsibility for this patient after signout from previous physician. On my independent evaluation, patient states that he is in moderate pain, 0.5 mg Dilaudid was administered. Patient was also given more IV fluids. Abdomen is still diffusely tender, with rebound, not rigid. On independent interpretation of workup, no leukocytosis with white count 8.5. Coags normal, viral swab negative. Chemistry largely nonactionable, but patient does have DAISY with creatinine 1.3 up from normal baseline, anion gap 18.5. Patient's lactate 6.3. LFTs nonactionable. Lipase negative. UA with protein, blood, leukocyte Estrace. Independent interpretation of CTA of the abdomen pelvis without acute bowel ischemia, but patient does have what appears to be ruptured appendicitis. Patient has free fluid in the pelvis as well. Prior to results, surgeon on-call was contacted. Recommended transfer to tertiary care hospital out of concern for comorbidities and perioperative complications. [facility] was contacted and case was discussed at length, graciously accepted transfer. Because patient high risk for clinical decompensation if discharged, deemed appropriate for transfer and inpatient admission. Results were relayed to patient who voiced understanding and patient was agreeable to transfer, inpatient admission, and management. Patient was graciously accepted and transferred to [facility] for further definitive management, under Dr. Ivey. Critical Care <Tari Yun MD - Last Filed: 06/13/24 07:14> Critical Care Time Critical Care Time: Yes Attestation: On 06/13/24, the high probability of a clinically significant, sudden or life threatening deterioration of the following system(s) (cardiac, GI) required my full and direct attention, intervention and personal management. The time I documented below is in addition to time spent performing reported procedures but includes the following listed in this critical care notation. Total Time Total Critical Care Time: 35 <Bryan Alfaro MD - Last Filed: 06/13/24 08:40> Critical Care Time Critical Care Time: Yes (Intra-abdominal sepsis) Attestation: On 06/13/24, the high probability of a clinically significant, sudden or life threatening deterioration of the following system(s) required my full and direct attention, intervention and personal management. The time I documented below is in addition to time spent performing reported procedures but includes the following listed in this critical care notation. Total Time Total Critical Care Time: 60
[2024-06-13 06:11] LABS: Albumin Level 4.5 g/dl (3.5-5.0); Chloride 102 mmol/L (98-107); Potassium 3.5 mmoL/L (3.5-5.1); Sodium 140 mmol/L (136-145)
[2024-06-13] MEDS: LACTATED RINGERS 1000ML 1,000 ML 945 ML IV (06:11)
[2024-06-13 06:12] LABS: Coronavirus 19, PCR Not Detected (NotDetected); Influenza A, PCR Not Detected (NotDetected); Influenza B, PCR Not Detected (NotDetected)
[2024-06-13 06:12] LABS: Microscopic, Urine URINE MICROSCOPIC (MICROSCOPIC)
[2024-06-13 06:13] LABS: Blood Urea Nitrogen 17 mg/dl (9-20); Creatinine Clearance Estimated 48 mL/min (50-200); Estimated Glomerular Filt Rate 55 ml/min (>60); GFR (African American) 66 ML/MIN (>60)
[2024-06-13] MEDS: MORPHINE 4MG/ML SYRINGE 4 MG IV (06:13)
[2024-06-13 06:14] LABS: Alanine Aminotransferase 39 U/L (12-78); Albumin/Globulin Ratio 1.3 (1.1-1.8); Alkaline Phosphatase 97 U/L (38-126); Anion Gap 18.5 mEq/L (5-15); Aspartate Amino Transferase 38 U/L (17-59); Bilirubin,Total 1.4 mg/dl (0.2-1.3); Carbon Dioxide 23 mmol/L (22.0-30.0); Globulin 3.5 g/dL (1.3-3.2); Glucose 210 mg/dl (74-100); Lipase 38 U/L (23-300)
[2024-06-13 06:15] LABS: Prothrombin Time 12.2 seconds (10.1-12.5)
[2024-06-13] MEDS: ONDANSETRON 4MG/2ML VIAL 4 MG IV (06:16)
[2024-06-13 06:23] LABS: Appearance,Urine CLEAR (Clear); Blood, Urine 3+ (Negative); Color,Urine YELLOW (Yellow); Glucose,Urine (UA) 3+ (Negative); Ketones,Urine Negative (Negative); Leukocyte Esterase,Urine Negative (Negative); Nitrate,Urine Negative (Negative); Protein,Urine 2+ (Negative); Specific Gravity, Urine >= 1.030 (1.005-1.030); Urobilinogen,Urine 0.2 EU/dl (0.2)
[2024-06-13] MEDS: PIPERACILLIN/TAZO 4.5 GM in 0.9 % SODIUM CHLORIDE 100 ML IV (06:25)
[2024-06-13 06:26] LABS: Lactic Acid 6.3 mmol/L (0.7-2.1)
--- NOTE | 2024-06-13 06:26 | CT_ITS ---
FINAL REPORT TECHNIQUE: Pre-and postcontrast images of the abdomen and pelvis were performed by computed tomography. Extensive 3-D reconstruction images were performed. A CTA was performed. This study was performed with techniques to keep radiation doses as low as reasonably achievable (ALARA). Individualized dose reduction techniques using automated exposure control or adjustment of mA and/or kV according to the patient''s size were employed. CLINICAL HISTORY: severe abd pain, lactic 6.3 COMPARISON: 03/22/2023 FINDINGS: ABDOMEN/PELVIS: There is right lower lobe soft tissue, likely atelectasis. There is 25 mm soft tissue in the left lower lobe, favor rounded atelectasis over pleural-based nodule. Small hepatic cyst is identified. There is a 12 mm cyst in the right kidney. No adrenal masses are identified. The spleen and pancreas are unremarkable. Small amount of ascites is seen in the abdomen and pelvis. There are multiple thickened small bowel loops in the pelvis, likely inflammatory. There is a structure in the right lower quadrant measuring up to 17 mm in diameter which is felt to represent markedly enlarged thick-walled appendix. There is probably a bubble of extraluminal air in this region well seen on image 117. The appearance is most worrisome for perforated appendix. The prostate is enlarged. CTA: The abdominal aorta is proper caliber. The SMA, celiac axis, and FILI are patent. There is no significant stenosis or calcification. There is moderate vascular calcification. There are multiple bilateral renal arteries without stenosis. The iliac arteries are normal. IMPRESSION: Findings most worrisome for perforated appendix. Left lower lobe soft tissue, favor atelectasis over pleural-based nodule. Recommend CT in 3-6 months. Reviewed, Interpreted and Dictated by Hiren Gupta III, MD Transcribed by Mary Cummings Authenticated and [facility]
--- NOTE | 2024-06-13 06:26 | PC.NURSE ---
critical lactic recieved by this RN. lactic 6.3
--- NOTE | 2024-06-13 06:40 | PC.NURSE ---
pt. back from CT
[2024-06-13 06:42] LABS: Bilirubin,Urine 1+ (Negative)
[2024-06-13 06:49] LABS: Amorphous Sediment,Urine Trace /lpf; Bacteria,Urine 1+ /lpf; Mucus,Urine Trace /lpf; RBC,Urine 20-50 #/hpf (0-3)
--- NOTE | 2024-06-13 06:49 | PC.NURSE ---
0615Pt. was given Morphine for pain. O2 sats dropped to 85% RA. Pt. placed on 2 liters O2 per NC. O2 sats increased to 95%
[2024-06-13] MEDS: SODIUM CHLORIDE 0.9% 10ML SYR (RAD ONLY) 10 ML IV (06:58)
[2024-06-13] MEDS: 0.9 % SODIUM CHLORIDE 50 ML VIAL IV (06:58)
[2024-06-13] MEDS: IOPAMIDOL-370 (76%);100ML BOTTLE 80 ML IV (06:59)
--- NOTE | 2024-06-13 07:12 | PC.NURSE ---
Yoko Mccain rounded on pt. No complaints or needs voiced. Call light within reach
--- NOTE | 2024-06-13 07:54 | PC.NURSE ---
Called radiology for an update on ct reading. Lolis states there is a prelim read and printed it to the ER. I gave this to Dr. Alfaro immediately d/t suspected findings of perforated appendix.
--- NOTE | 2024-06-13 07:55 | PC.NURSE ---
rounded on pt, pt sleeping at this time
--- NOTE | 2024-06-13 07:57 | PC.NURSE ---
Dr. Alfaro at BS to update pt on current POC
--- NOTE | 2024-06-13 07:57 | PC.NURSE ---
Dr. Alfaro s/w Dr Flores for surgery consult
--- NOTE | 2024-06-13 08:05 | PC.NURSE ---
O/p with transfer center at this time.
--- NOTE | 2024-06-13 08:08 | PC.NURSE ---
o/p with @ this time.
--- NOTE | 2024-06-13 08:08 | PC.NURSE ---
Dr. Alfaro at bedside
--- NOTE | 2024-06-13 08:43 | PC.NURSE ---
called [facility] at this time.
--- NOTE | 2024-06-13 08:45 | PC.NURSE ---
rounded on pt, updated about plan of care. Pt given ice chips, okayed by
--- NOTE | 2024-06-13 08:58 | PC.NURSE ---
Called report to José Manuel Puentes RN @ [facility]
[2024-06-13] MEDS: HYDROMORPHONE 2MG/ML SYRINGE 0.5 MG IV (09:04)
[2024-06-13] MEDS: ACETAMINOPHEN 1,000MG/100ML VIAL 1000 MG IV (09:05)
[2024-06-13 10:05] LABS: Reflex Lactic Add Lactic Reflex
== END 2024-06-13 09:25 | disposition short-term general hospital (02) ==
PROVIDERS: Emergency Medicine; Emergency Provider Emergency Medicine; PCP Internal Medicine
DX: A41.9 Sepsis, unspecified organism (principal); K35.32 Acute appendicitis with perforation, localized peritonitis, and gangrene, without abscess; R74.02 Elevation of levels of lactic acid dehydrogenase [LDH]; E87.29 Other acidosis; R10.30 Lower abdominal pain, unspecified; E80.6 Other disorders of bilirubin metabolism; J44.9 Chronic obstructive pulmonary disease, unspecified; I11.9 Hypertensive heart disease without heart failure; I25.10 Atherosclerotic heart disease of native coronary artery without angina pectoris; E78.5 Hyperlipidemia, unspecified; Z95.5 Presence of coronary angioplasty implant and graft; Z87.891 Personal history of nicotine dependence; Z79.01 Long term (current) use of anticoagulants
CPT/HCPCS: 74174; 80053; 81001; 83605; 83690; 85025; 85610; 87040; 87636; 96361; 96365; 96375; 99291; J0131; J1170; J2270; J2405; J2543; J7120; Q9967

== ENCOUNTER 2024-09-16 09:40 | Outpatient (CLI) | payer MEDICARE, OTHER, SELFPAY ==
[2024-09-16 17:27] LABS: Alanine Aminotransferase 17 U/L (12-78); Albumin Level 4.1 g/dl (3.5-5.0); Albumin/Globulin Ratio 1.5 (1.1-1.8); Alkaline Phosphatase 69 U/L (38-126); Anion Gap 13.9 mEq/L (5-15); Aspartate Amino Transferase 27 U/L (17-59); Bilirubin,Total 0.7 mg/dl (0.2-1.3); Blood Urea Nitrogen 19 mg/dl (9-20); Calcium 8.9 mg/dl (8.4-10.2); Carbon Dioxide 24 mmol/L (22.0-30.0); Chloride 106 mmol/L (98-107); Chol/HDL Ratio 2.7 (1-3.5); Cholesterol 151 mg/dl (140-200); Estimated Glomerular Filt Rate 96 ml/min (>60); GFR (African American) 116 ML/MIN (>60); Globulin 2.7 g/dL (1.3-3.2); Glucose 67 mg/dl (74-100); HDL Cholesterol 55 mg/dl (40-60); Potassium 4.9 mmoL/L (3.5-5.1); Sodium 139 mmol/L (136-145); Total Protein,Serum 6.8 g/dl (6.3-8.2); Triglycerides 92 mg/dl (30-150); VLDL Cholesterol 18 mg/dL (0-40)
[2024-09-16 17:38] LABS: Direct LDL Cholesterol 76.68 mg/dL (100-129)
== END 2024-09-16 23:59 | disposition home or self-care (01) ==
LOC: LAB.DROPOF 09-17 09:50
PROVIDERS: PCP Internal Medicine; Visit Provider Internal Medicine
DX: E78.2 Mixed hyperlipidemia (principal); I25.10 Atherosclerotic heart disease of native coronary artery without angina pectoris; I50.20 Unspecified systolic (congestive) heart failure; E78.5 Hyperlipidemia, unspecified
CPT/HCPCS: 80053; 80061

== ENCOUNTER 2024-11-28 10:16 | Outpatient (CLI) | payer MEDICARE, OTHER, SELFPAY ==
--- NOTE | 2024-11-28 10:19 | CA_ITS ---
APPROVED REPORT EXAM: Comprehensive 2D, Doppler, and color-flow Echocardiogram [employer] Worker: Jenna Baker RVT Ht: 5 ft 10 in Wt: 137lbs BSA: 1.78 BP: 114/76 mmHg Indications: HFrEF,CAD,CM,HLD,SOA,EX SMOKER 2D Dimensions LA Volume 27.40 mL LA Volume Index 15.39 mL/m2 (M/F) 16-34 M-Mode Dimensions RVDd 2.62 cm (0.9-2.6) LA Diam 3.13 cm (1.9-4.0) LVDd 4.16 cm (3.5-5.7) LVDs 2.95 cm (3.5-5.7) IVSd 0.84 cm (0.6-1.1) PWd 0.70 cm (0.6-1.1) EF (Teich) 56.30% FS 29.10% EDV (Teich) 76.80 mL TAPSE 1.70 (<1.7) ESV (Teich) 33.60 mL LV Diastology E Decel Time 150 (160-240 msec) E/A Ratio 0.8 Aortic Valve ANDREA Index 1.47 cm2/m2 AoV Peak Alonso. 91.0 (50-130 cm/s) AO Peak GR. 3.30 mmHg AO Mean GR. 2.10 (<5 mmHg) AO VTI 17.3 (18-25 cm) ANDREA (VTI) 2.67 (2.5-4.5 cm2) Mitral Valve MV E Max Alonso. 48.0 (40-130 cm/s) MV A Velocity 63.0 (40-130 cm/s) E/A Ratio 0.76 MV PHT 44.0 ms Pulmonary Valve PV Peak Velocity 63.0 (50-150 cm/s) Tricuspid Valve TR P. Velocity 232.00 cm/s RAP Estimate 10.00 mmHg RVSP 31.60 mmHg Left Ventricle The left ventricle is normal size. The left ventricular systolic function is normal. The left ventricular ejection fraction is within the normal range. There is increased LV wall thickness. The septum is asynchronous. LVEF is 55%. Transmitral Doppler flow pattern suggests impaired LV relaxation. Right Ventricle Right ventricle is mildly dilated. The right ventricular systolic function is normal. There is a device lead in the right ventricle. Atria The left atrium size is normal. The right atrium size is normal. There is no Doppler evidence of interatrial shunt. Aortic Valve Aortic valve is mildly thickened. There is no aortic valvular stenosis. No aortic regurgitation is present. Mitral Valve The mitral valve is normal in structure. No evidence of mitral valve stenosis. Trace mitral regurgitation. Tricuspid Valve Tricuspid valve is grossly normal in structure and function. Mild tricuspid regurgitation. RVSP is 20-25 mmHg. Pulmonic Valve The pulmonary valve is normal in structure. Trace pulmonic regurgitation. Great Vessels The aortic root is normal in size. The ascending aorta is not well-visualized. IVC is normal in size and collapses >50% with inspiration. Pericardium There is no pericardial effusion. Other Information Study Quality: Fair Conclusion Normal biventricular systolic function. Mild RV dilation. Mild TR. Electronically signed by : Brooke Vo MD 12/07/2024 21:33:23
== END 2024-11-28 23:59 | disposition home or self-care (01) ==
LOC: RT 10:17
PROVIDERS: PCP Internal Medicine; Visit Provider Nurse Practitioner
DX: I36.1 Nonrheumatic tricuspid (valve) insufficiency (principal); I51.7 Cardiomegaly; I50.20 Unspecified systolic (congestive) heart failure; I25.10 Atherosclerotic heart disease of native coronary artery without angina pectoris
CPT/HCPCS: 93306

== ENCOUNTER 2025-03-17 09:15 | Outpatient (CLI) | payer MEDICARE, OTHER, SELFPAY ==
[2025-03-17 17:00] LABS: Basophils % 0.6 % (0.1-2.0); Eosinophils # 0.2 Kmm3 (0.0-0.4); Eosinophils % 3.2 % (0.1-12.0); Hematocrit 36.6 % (42.0-52.0); Hemoglobin 11.4 g/dL (14.1-18.0); Immature Granulocytes # 0 10^3uL; Immature Granulocytes % 0 %; Lymphocytes # 1.6 K/mm3 (0.7-4.5); Lymphocytes % 34.3 % (10-50); Mean Corpuscular HGB Conc 31.1 g/dL (31.8-35.4); Mean Corpuscular Hemoglobin 29.1 pg (27.0-31.2); Mean Corpuscular Volume 93.4 fl (80-94); Mean Platelet Volume 10.4 fl (7.4-10.4); Monocytes # 0.5 K/mm3 (0.1-1.0); Monocytes % 11.5 % (1.7-9.3); Neutrophils # 2.4 K/mm3 (1.8-7.8); Neutrophils % 50.4 % (37.0-80.0); Nucleated Red Blood Cells # 0 10^3/uL; Nucleated Red Blood Cells % 0 %; Platelet Count 185 K/mm3 (142-424); Red Blood Count 3.92 M/mm3 (4.60-6.20); Red Cell Distribution Width 14.4 % (11.5-17.5); Red Cell Distribution Width-SD 49.1 fL; White Blood Count 4.7 K/mm3 (4.8-10.8)
[2025-03-17 18:05] LABS: Chloride 111 mmol/L (98-107); Sodium 140 mmol/L (136-145)
[2025-03-17 18:08] LABS: Alanine Aminotransferase 14 U/L (12-78); Albumin/Globulin Ratio 1.3 (1.1-1.8); Alkaline Phosphatase 108 U/L (38-126); Aspartate Amino Transferase 26 U/L (17-59); Bilirubin,Total 0.4 mg/dl (0.2-1.3); Blood Urea Nitrogen 17 mg/dl (9-20); Calcium 8.4 mg/dl (8.4-10.2); Carbon Dioxide 23 mmol/L (22.0-30.0); Cholesterol 150 mg/dl (140-200); Estimated Glomerular Filt Rate 84 ml/min (>60); GFR (African American) 101 ML/MIN (>60); Globulin 3.1 g/dL (1.3-3.2); Glucose 71 mg/dl (74-100); Total Protein,Serum 7.1 g/dl (6.3-8.2); Triglycerides 63 mg/dl (30-150); VLDL Cholesterol 13 mg/dL (0-40)
[2025-03-17 18:09] LABS: Chol/HDL Ratio 2.9 (1-3.5); HDL Cholesterol 52 mg/dl (40-60)
[2025-03-17 18:19] LABS: Direct LDL Cholesterol 72.78 mg/dL (100-129)
[2025-03-18 14:59] LABS: Iron 50 ug/dL (49-181)
[2025-03-18 15:16] LABS: Total Iron Binding Capacity 395 ug/dL (261-462)
== END 2025-03-17 23:59 | disposition home or self-care (01) ==
LOC: LAB.DROPOF 03-18 14:20
PROVIDERS: PCP Internal Medicine; Visit Provider Internal Medicine
DX: E78.5 Hyperlipidemia, unspecified (principal); I25.10 Atherosclerotic heart disease of native coronary artery without angina pectoris; I50.20 Unspecified systolic (congestive) heart failure; D64.9 Anemia, unspecified; Z87.891 Personal history of nicotine dependence
CPT/HCPCS: 80053; 80061; 83540; 83550; 85025

== ENCOUNTER 2025-05-03 21:52 | Inpatient (IN) | payer MEDICARE, OTHER, SELFPAY ==
--- OUTSIDE RECORDS SUMMARY | 2025-05-03 21:58 | XMS_ITS | Clinical Summary ---
Author Organization Healthcare Address [address] [place] [address] Care Team Providers Care Graphics Artist Name Role Phone Miguel Quiñones MD Primary Care Provider [phone] Allergies No known active allergies Medications methocarbamol (Robaxin) 500 MG tablet Take 1 tablet (500 mg) by mouth 4 (four) times a day for 7 days. 28 tablet 06/15/20 24 Active naloxone (Narcan) 4 mg/0.1 mL nasal spray 1. Give 1 spray in nostril for no/slow breathing or cannot wake after opioid use 2. Call 911 3. Repeat in other nostril if symptoms continue 1 each 06/15/20 24 Active calcium carbonate (Tums) 500 MG chewable tablet Chew 1 tablet (500 mg) 1 (one) time each day if needed for indigestion or heartburn. 30 tablet 06/15/20 24 Active ondansetron ODT (Zofran-ODT) 4 MG disintegrating tablet Take 1 tablet (4 mg) by mouth every 6 (six) hours if needed for vomiting or nausea. 20 tablet 06/15/20 24 Active pantoprazole (Protonix) 40 MG EC tablet Take 1 tablet (40 mg) by mouth 1 (one) time each day before breakfast. Do not crush, chew, or split. 30 tablet 06/16/20 24 Active Active Problems Problem Noted Date Diagnosed Date CAD (coronary artery disease) 06/13/2024 COPD (chronic obstructive pulmonary disease) 06/2024 HF (heart failure) 06/13/2024 HTN (hypertension) 06/13/2024 OA (osteoarthritis) 06/13/2024 Pacemaker 06/13/2024 Resolved Problems Problem Noted Date Diagnosed Date Resolved Date Perforated appendicitis 06/13/202406/2024 Social History Tobacco Use Types Packs/Day Years Used Date Smoking Tobacco: Former Cigarettes Smokeless Tobacco: Never Tobacco Cessation:Counseling Given: Not Answered Sex and Gender Information Value Date Recorded Sex Assigned at Male 06/13/2024 2:03 PM EDT Legal Sex Male 6:53 PM EDT Gender Identity Male 06/13/2024 2:03 PM EDT Sexual Orientation Not on file Last Filed Vital Signs Vital Sign Reading Time Taken Comments Blood Pressure 106/63 06/15/2024 11:34 AM EDT Pulse 63 06/15/2024 11:34 AM EDT Temperature 36.9 C (98.4 F) 06/15/2024 11:34 AM EDT Respiratory Rate 14 06/15/2024 11:34 AM EDT Oxygen Saturation 94% 06/15/2024 11:34 AM EDT Inhaled Oxygen Concentration - - Weight 65 kg (143 lb 4.8 oz) 06/14/2024 12:27 AM EDT Height 177.8 cm (5' 10 ) 06/14/2024 12:27 AM EDT Body Mass Index 20.56 06/14/2024 12:27 AM EDT Plan of Treatment Health Maintenance Due Date Last Done Comments [facility]-Depression Screening 1955 [facility]-Medicare Annual Wellness (AWV) 1955 [facility]-Infant/Child/Adol SDOH Screenings 1955 [facility]- SDOH Screenings 01/22/1974 [facility]-Adult SDOH Screenings 01/22/1974 [facility]-DTaP,Tdap,and Td Vaccine s (1 - Tdap) 01/22/1975 CT Colonography 01/22/2001 Colonoscopy 01/22/2001 FIT-DNA 01/22/2001 FIT 01/22/2001 FOBT 01/22/2001 Sigmoidoscopy 01/22/2001 [facility]-Colorectal Cancer Screening 01/22/2001 [facility]-Pneumococcal Vaccine: 50 + Years (1 of 1 - PCV) 01/22/2006 [facility]-Zoster Vaccines (1 of 2) 01/22/2006 [facility]-RSV Vaccine: 60+ Years o r (1 - Risk 60-74 years 1-dose series) 2016 [facility]-Abdominal Aortic Aneurys m (AAA) Screening 01/22/2021 [id number] Vaccine (1 - 20 24-25 season) 2024 [facility]-Influenza Vaccine (Seas[place] n Ended) 2025 [facility]-Hepatitis C Screening Completed 06/13/2024 HPV Vaccines Aged Out No longer eligi ble based on patient's age to complete this topic [facility]-HIB Vaccines Aged Out No longer e ligible based on patient's age to complete this topic [facility]-Hepatitis A Vaccines Aged Out No longer eligible based on patient's age to complete this topic [facility]-IPV Vaccines Aged Out No longer e ligible based on patient's age to complete this topic [facility]-Rotavirus Vaccines Aged Out No lo nger eligible based on patient's age to complete this topic Procedures Procedure Name Priority Date/Time Associated Diagnosis Comments HEPATITIS C ANTIBODY - ED W/REFLEX TO HCV QUANT PCR STAT 06/13/2024 11:00 AM EDT from Last 3 Months or Most Recently Relevant to Health Maintenance Results * Hepatitis C Antibody - ED (06/13/2024 11:00 AM EDT) Hepatitis C Antibody Negative Negative 06/13/2024 12:13 PM EDT [facility] Blood Venous blood specimen / Unknown Venipuncture / Unknown 06/13/2024 11:00 AM EDT 06/13/2024 11:15 AM EDT [facility] BLOOD ORDERABLES Chanelle lorenzo Result Performing Organization Address City/State/[facility] Co de Phone Number [facility] [address] [place] [phone] from Last 3 Months or Most Recently Relevant to Health Maintenance Insurance MEDICARE [employer] [facility] Advance Directives * Full Code (Latest Code Status on File) Date Activated Date Inactivated Comments 06/13/2024 4:48 PM 06/15/2024 4:41 PM Question Answer Comments Patient has decision-making capacity? Yes Care Teams Graphics Artist Relationship Specialty Start Date End Date Miguel Quiñones MD [address] [place] [address] [address] [place] [address] PCP - General 03/19/21
[2025-05-03 22:00] VITALS: BP 146/86; PULSE 84; O2SAT 96
[2025-05-03 22:01] VITALS: BP 138/82; PULSE 76; RESP 16; TEMP 36.6; O2SAT 96; BMI 19.8
[2025-05-03 22:07] LABS: Microscopic, Urine URINE MICROSCOPIC (MICROSCOPIC)
[2025-05-03 22:08] LABS: Bilirubin,Urine Negative (Negative); Color,Urine YELLOW (Yellow); Glucose,Urine (UA) 3+ (Negative); Ketones,Urine Negative (Negative); Leukocyte Esterase,Urine Negative (Negative); PH,Urine 6.0 (5.0-8.5); Protein,Urine TRACE (Negative); Specific Gravity, Urine >= 1.030 (1.005-1.030); Urobilinogen,Urine 0.2 EU/dl (0.2)
[2025-05-03 22:27] LABS: Bacteria,Urine Trace /lpf; Mucus,Urine 2+ /lpf; RBC,Urine 20-50 #/hpf (0-3)
[2025-05-03 22:30] VITALS: BP 141/85; PULSE 64; O2SAT 97
--- NOTE | 2025-05-03 22:35 | CT_ITS ---
PROCEDURE INFORMATION: Exam: CT Abdomen And Pelvis With Contrast Exam date and time: 05/03/2025 11:06 PM Age: 70 years old Clinical indication: Other: Swelling rlq; Abdominal pain; Additional info: Abd pain, rlq swelling TECHNIQUE: Imaging protocol: Computed tomography of the abdomen and pelvis with contrast. Radiation optimization: All CT scans at this facility use at least one of these dose optimization techniques: automated exposure control; mA and/or kV adjustment per patient size (includes targeted exams where dose is matched to clinical indication); or iterative reconstruction. Contrast material: ISOVUE; Contrast volume: 75 ml; Contrast route: IV; COMPARISON: CT ANGIO ABDOMEN PELVIS 06/13/2024 6:47 AM FINDINGS: Tubes, catheters and devices: Pacemaker leads in the right atrium and right ventricle. Lungs: Centrilobular emphysema. Bilateral lower lobe linear atelectasis. Coronary arteries: Coronary artery calcifications. Liver: Tiny hypodense right hepatic lesions likely representing simple cysts. Gallbladder and biliary ducts: No calcified stones. No ductal dilation. Pancreas: Normal. No ductal dilation. Spleen: Unremarkable. Adrenal glands: Unremarkable. Kidneys and ureters: Bilateral simple cortical renal cysts. No hydronephrosis. Stomach and bowel: Nonspecific distension of the cecum and terminal ileum. There is a questionable transition point in the right lower quadrant however the distended ileum appears distal to this narrowing (series 3, image 84). Mild mucosal thickening of the left hemicolon may suggest an acute colitis. Appendix: Appendectomy. Intraperitoneal space: No free air. No fluid collection. Vasculature: Mild atherosclerotic changes of the aorta and its major branches. Lymph nodes: No enlarged lymph nodes. Urinary bladder: Unremarkable as visualized. Reproductive: Prostatomegaly. Bones/joints: No acute fracture. Mild multilevel spondylosis. Significant loss of intervertebral disc space height throughout the lumbar spine most notably at L3-L4. Grade 1 retrolisthesis of L1 on L2, L2 on L3, and L3 on L4. Soft tissues: Unremarkable. IMPRESSION: 1. Nonspecific distension of the cecum and terminal ileum with fecalization in the terminal ileum may be secondary to an ileus or partial mechanical obstruction. 2. Mild mucosal thickening of the left hemicolon may suggest an acute colitis. COMMENTS: Consistent with the [employer]'s Incidental Findings Committee white paper (J Am Dori Radiol 2018): Any incidental renal lesion less than 1 cm or classified as too small to characterize, or any incidental cystic renal lesion characterized as simple-appearing, is likely benign. No follow-up imaging is recommended for these lesions per consensus recommendations based on imaging criteria.
[2025-05-03 22:43] LABS: Hematocrit 37.7 % (42.0-52.0); Hemoglobin 12.2 g/dL (14.1-18.0); Immature Granulocytes % 0.2 %; Mean Corpuscular HGB Conc 32.4 g/dL (31.8-35.4); Mean Corpuscular Hemoglobin 29.1 pg (27.0-31.2); Mean Corpuscular Volume 90.0 fl (80-94); Nucleated Red Blood Cells % 0 %; Platelet Count 210 K/mm3 (142-424); Red Blood Count 4.19 M/mm3 (4.60-6.20); Red Cell Distribution Width-SD 44.3 fL; White Blood Count 9.1 K/mm3 (4.8-10.8)
[2025-05-03] MEDS: KETOROLAC 30MG/ML VIAL 15 MG IV (22:48)
[2025-05-03] MEDS: ACETAMINOPHEN 1,000MG/100ML VIAL 1000 MG IV (22:49)
[2025-05-03 22:58] LABS: Alanine Aminotransferase 14 U/L (12-78); Albumin Level 4.3 g/dl (3.5-5.0); Albumin/Globulin Ratio 1.0 (1.1-1.8); Alkaline Phosphatase 125 U/L (38-126); Anion Gap 13.0 mEq/L (5-15); Aspartate Amino Transferase 27 U/L (17-59); Bilirubin,Total 0.7 mg/dl (0.2-1.3); Blood Urea Nitrogen 24 mg/dl (9-20); Calcium 9.4 mg/dl (8.4-10.2); Carbon Dioxide 25 mmol/L (22.0-30.0); Chloride 104 mmol/L (98-107); Creatinine Clearance Estimated 62 mL/min (50-200); Creatinine,Serum 1.00 mg/dl (0.66-1.25); Estimated Glomerular Filt Rate 74 ml/min (>60); GFR (African American) 90 ML/MIN (>60); Globulin 4.1 g/dL (1.3-3.2); Glucose 134 mg/dl (74-100); Lipase 69 U/L (23-300); Potassium 5.0 mmoL/L (3.5-5.1); Sodium 137 mmol/L (136-145); Total Protein,Serum 8.4 g/dl (6.3-8.2)
[2025-05-03 23:00] VITALS: BP 142/81; PULSE 62; O2SAT 97
--- NOTE | 2025-05-03 23:00 | HMH.EDGENADL ---
Discharge Plan Disposition Patient Disposition: Admitted Condition: Good Prescriptions Prescriptions: No Action aspirin [Adult Aspirin Regimen] 81 mg tablet,delayed release (DR/EC) 81 mg PO DAILY Jardiance 10 mg tablet 10 mg PO DAILY Qty: 90 3RF atorvastatin 80 mg tablet 80 mg PO HS azelastine 137 mcg (0.1 %) spray,non-aerosol 2 spray intranasal BID Qty: 60 2RF Rx Instructions: administer into each nostril Entresto 24-26 mg tablet 0.5 tab PO BID Qty: 90 3RF spironolactone [Aldactone] 25 mg tablet 12.5 mg PO DAILY Qty: 30 5RF clopidogrel 75 mg tablet See Rx Instructions .ROUTE .COMPLEX Qty: 90 1RF Dose Instruction: Take 1 tablet by mouth once daily for 90 days Rx Instructions: Take 1 tablet by mouth once daily for 90 days ferrous sulfate 325 mg (65 mg iron) tablet 325 mg PO DAILY Qty: 30 0RF carvedilol 6.25 mg tablet See Rx Instructions .ROUTE .COMPLEX Qty: 180 1RF Dose Instruction: Take 1 tablet by mouth twice daily Rx Instructions: Take 1 tablet by mouth twice daily Referrals Follow up/Referrals: Miguel Quiñones MD [Primary Care Provider, Medical] - See instructions Clinical Impressions Clinical Impression: Partial bowel obstruction Instructions Patient Instructions: DI for Acute Abdominal Pain Print Language Print Language: Setswana Discharge ED Provider: Bryan Alfaro General Adult HPI <Bryan Alfaro MD - Last Filed: 05/03/25 23:09> General Chief complaint: Abdominal Pain Stated complaint: abdominal pain Time Seen by Provider: 05/03/25 22:10 Mode of Arrival: Ambulatory Source of Information: Patient Description of Symptoms (Recalled from ER Triage Doc. by RN): Patient has pain on right side- has already had appendix removed, has had hernia sx in past- states this feels like a hernia pain; states he has a bulge on right lower side of abdomen History of Present Illness HPI narrative: Please note that above description of symptoms, in this electronic medical record under categorization of recalled from ER triage doctor by RN are reflective of an initial nursing assessment, however, is not reflective of my full history and physical exam that was personally taken and clarified. Consequentially, this preceding description of symptoms, which may include the patient's categorized chief complaint in the EMR, do not reflect my personal clinical impression, and the ultimate description of history of present illness and patient stated complaints should be deferred to this section of the note. Unless stated otherwise or congruent with this section of the note, additional signs, symptoms, or incongruence should be interpreted as inaccurate with my clinical impression. Related Data Home Medications ?Medication ?Instructions ?Recorded ?Confirmed aspirin 81 mg tablet,delayed 81 mg PO DAILY 03/28/22 03/17/25 release (Adult Aspirin Regimen) atorvastatin 80 mg tablet 80 mg PO HS 03/17/25 03/17/25 Previous Rx's ?Medication ?Instructions ?Recorded sacubitril 24 mg-valsartan 26 mg 0.5 tab PO BID #90 tabs 08/22/24 tablet (Entresto) spironolactone 25 mg tablet 12.5 mg (1/2 x 25 mg) PO DAILY #30 09/24/24 (Aldactone) tabs empagliflozin 10 mg tablet 10 mg PO DAILY #90 tabs 11/25/24 (Jardiance) clopidogrel 75 mg tablet See Rx Instructions .Route 01/24/25 .COMPLEX #90 tabs azelastine 137 mcg (0.1 %) nasal 2 spray intranasal BID #60 mL 03/17/25 spray ferrous sulfate 325 mg (65 mg 325 mg PO DAILY #30 tabs 04/18/25 iron) tablet carvedilol 6.25 mg tablet See Rx Instructions .Route 04/23/25 .COMPLEX #180 tabs Allergies Allergy/AdvReac Type Severity Reaction Status Date / Time No Known Drug Allergies Allergy Unknown Verified 03/17/25 08:38 [facility] <Bryan Alfaro MD - Last Filed: 05/03/25 23:09> [facility] Disclaimer: The information contained in this section may have been updated after the patient was seen, as this information can be updated by other users. Medical History HFrEF (heart failure with reduced ejection fraction) Cardiomyopathy DVT (deep venous thrombosis) HLD (hyperlipidemia) Hypotension Cardiac pacemaker in situ COPD (chronic obstructive pulmonary disease) Dyspnea CAD (coronary artery disease) Surgical History Stented coronary artery Social History Smoking Status: Never smoker second hand exposure: No alcohol intake: never substance use type: denies use current occupational status: unemployed Travel in the last 8 weeks?: None household members: none housing: house current occupational exposures/hazards: No caffeine: Yes Have you lived/traveled outside [place] in past 30 days?: No Contact w/someone who lives/traveled outside [place] past 30 days?: No Exposure to someone with infectious disease in past 14 days?: No Do you have a fever (greater than 100.4 F or 38 C)?: No Have you tested positive for COVID-19?: No Exposed to someone with COVID-19 in past 14 days?: No Do you have a sore throat?: No Do you have a cough?: No Do you have any weakness?: No Do you have any diarrhea?: No Are you experiencing any unusual bleeding?: No Do you have any muscle aches/pain?: No Do you have any abdominal pain?: No Are you experiencing loss of taste or smell?: No Other Medical History Have you received the Flu Vaccine for this season: No Have you received the Pneumonia Vaccine: No <Bryan Alfaro MD - Last Filed: 05/03/25 23:09> ROS Obtained: Yes All systems reviewed & no additional complaints except as documented Physical Exam <Bryan Alfaro MD - Last Filed: 05/03/25 23:09> General General appearance: alert Head Head exam: atraumatic and normocephalic Eye Eye exam: Present normal appearance, PERRL and EOMI Neck Neck exam: Present normal inspection, full ROM and trachea midline Respiratory Respiratory exam: Absent respiratory distress, wheezes, stridor, accessory muscle use or prolonged expiratory phase Cardiovascular Cardiovascular exam: Present other (Pulses equal symmetric in upper and lower extremities) Abdominal Exam Abdominal exam: Present soft; Absent distention, tenderness, guarding, rebound, rigidity or pulsatile mass Abdominal tenderness: Present mild Extremities Exam Extremities exam: Absent edema Neurological Exam Neurological exam: Present alert, oriented X3 and CN II-XII intact; Absent motor sensory deficit Skin Skin exam: Present warm and dry; Absent diaphoresis or erythema Medical Decision Making <Bryan Alfaro MD - Last Filed: 05/03/25 23:09> Medical Records Medical records reviewed: Yes I reviewed the patient's medical records. Screening: Per USPSTF and CDC recommendations, given the prevalence of disease in our region, it is our hospital?s policy to screen for HIV and viral Hepatitis for all patients aged 18 and over and those with ongoing risk factors. Jacky Inquiry Pt receiving controlled substance: No Jacky was queried for this patient: No Vital Signs: 05/03/25 22:00 05/03/25 22:01 05/03/25 22:30 Temperature 97.9 F Temperature Source Oral Pulse Rate 84 64 Pulse Rate [Right Radial] 76 Respiratory Rate 16 Blood Pressure 146/86 H 141/85 H Blood Pressure [Right Arm] 138/82 Blood Pressure Mean [Right Arm] 100 Blood Pressure Source [Right Arm] Automatic Cuff Blood Pressure Position [Right Arm] Supine 02 Sat by Pulse Oximetry 96 96 97 Oxygen Delivery Method Room Air 05/03/25 23:00 Temperature Temperature Source Pulse Rate 62 Pulse Rate [Right Radial] Respiratory Rate Blood Pressure 142/81 H Blood Pressure [Right Arm] Blood Pressure Mean [Right Arm] Blood Pressure Source [Right Arm] Blood Pressure Position [Right Arm] 02 Sat by Pulse Oximetry 97 Oxygen Delivery Method Lab Data Lab Results 05/03/25 20:57: Urine Color Yellow, Urine Appearance Clear, Urine pH 6.0, Ur Specific Newell >= 1.030, Urine Protein Trace, Urine Glucose (UA) 3+, Urine Ketones Negative, Urine Blood 1+ A, Urine Nitrate Negative, Urine Bilirubin Negative, Urine Urobilinogen 0.2, Ur Leukocyte Esterase Negative, Urine RBC 20-50, Urine WBC 10-20, Ur Squamous Epith Cells 5-10, Urine Bacteria Trace, Urine Mucus 2+ 05/03/25 22:34: WBC 9.1, RBC 4.19 L, Hgb 12.2 L, Hct 37.7 L, MCV 90.0, MCH 29.1, MCHC 32.4, RDW 13.8, Plt Count 210, MPV 10.0, Neut % (Auto) 80.5 H, Lymph % (Auto) 12.0, Saline % (Auto) 5.9, Eos % (Auto) 1.2, Baso % (Auto) 0.2, Neut # (Auto) 7.4, Lymph # (Auto) 1.1, Saline # (Auto) 0.5, Eos # (Auto) 0.1, Baso # (Auto) 0.0, Sodium 137, Potassium 5.0, Chloride 104, Carbon Dioxide 25, Anion Gap 13.0, BUN 24 H, Creatinine 1.00, Estimated Creat Clear 62, Estimated GFR 74, Est GFR ( Amer) 90, Glucose 134 H, Calcium 9.4, Total Bilirubin 0.7, AST 27, ALT 14, Alkaline Phosphatase 125, Total Protein 8.4 H, Albumin 4.3, Globulin 4.1 H, Albumin/Globulin Ratio 1.0 L, Lipase 69 05/03/25 22:34 05/03/25 22:34 Orders (Tests/Meds): ED MEDICATIONS Generic Name Dose Route Start Last Admin Trade Name Freq PRN Reason Stop Dose Admin Lactated Ringer's 1,000 mls @ 100 mls/hr 05/04/25 00:15 Lactated Ringer's 1000 Ml Bag IV 06/03/25 00:14 .Q10H ESTUARDO Sodium Chloride 10 ml 05/03/25 23:13 05/03/25 23:13 Sodium Chloride 0.9% 10ml Syr (Rad Only) IV 06/02/25 23:12 10 ml NEEDED PRN Administration Maintain IV Site Discontinued Medications Generic Name Dose Route Start Last Admin Trade Name Freq PRN Reason Stop Dose Admin Acetaminophen 1,000 mg 05/03/25 22:35 05/03/25 22:49 Acetaminophen 1,000mg/100ml Vial IV 05/03/25 22:36 1,000 mg ONCE ONE Administration Iopamidol 75 ml 05/03/25 23:13 05/03/25 23:13 Iopamidol-370 (76%);100ml Bottle IV 05/03/25 23:14 75 ml ONCE ONE Administration Ketorolac Tromethamine 15 mg 05/03/25 22:35 05/03/25 22:48 Ketorolac 30mg/Ml Vial IV 05/03/25 22:36 15 mg ONCE ONE Administration ORDERS Category Date Time Status CT abdomen pelvis w con Stat Cat Scan 05/03/25 22:35 Completed CBC w/Auto Diff [Complete Blood Count Auto Diff] Stat Lab 05/03/25 22:34 Completed CMP [Comprehensive Metabolic Panel] Stat Lab 05/03/25 22:34 Completed Lipase Stat Lab 05/03/25 22:34 Completed UA [Urinalysis and Microscopic] Stat Lab 05/03/25 20:57 Completed Urine Culture Stat Micro 05/03/25 20:57 Received Medical Decision Narrative: 70-year-old male presenting with abdominal pain. He states that he was just sitting at dinner prior to this had acute onset right lower quadrant abdominal pain. He says it is associated with a bulging sensation in his right lower quadrant just lateral to his navel. Last bowel movement was just prior to this and was normal for him, no blood. He still passing gas. No vomit. Pain is moderate to severe in intensity, does not radiate. States that he has a history of bilateral inguinal hernia repair as well as appendectomy. This seems to feel similar to when he had his hernia repairs in the past. History obtained with patient. Differential includes hernia, nephrolithiasis, diverticulitis, bowel perforation, pancreatitis, colitis, proctitis, among others. Patient was given Toradol and fluids. Labs ordered. On independent interpretation of initial labs, nonactionable CBC or chemistry. Lipase negative. Urinalysis with blood and white blood cells. CT scan pending at time of handoff. Public [employer] Aides Teacher disclaimer Much of this encounter note is an electronic nutrition internship spoken language to printed text. Electronic nutrition internship of the spoken language may permit errors. Although I have reviewed the note, some errors may still exist. <Tari Yun MD - Last Filed: 05/04/25 00:14> Vital Signs: 05/03/25 22:00 05/03/25 22:01 05/03/25 22:30 Temperature 97.9 F Temperature Source Oral Pulse Rate 84 64 Pulse Rate [Right Radial] 76 Respiratory Rate 16 Blood Pressure 146/86 H 141/85 H Blood Pressure [Right Arm] 138/82 Blood Pressure Mean [Right Arm] 100 Blood Pressure Source [Right Arm] Automatic Cuff Blood Pressure Position [Right Arm] Supine 02 Sat by Pulse Oximetry 96 96 97 Oxygen Delivery Method Room Air 05/03/25 23:00 Temperature Temperature Source Pulse Rate 62 Pulse Rate [Right Radial] Respiratory Rate Blood Pressure 142/81 H Blood Pressure [Right Arm] Blood Pressure Mean [Right Arm] Blood Pressure Source [Right Arm] Blood Pressure Position [Right Arm] 02 Sat by Pulse Oximetry 97 Oxygen Delivery Method Lab Data Lab Results 05/03/25 20:57: Urine Color Yellow, Urine Appearance Clear, Urine pH 6.0, Ur Specific Newell >= 1.030, Urine Protein Trace, Urine Glucose (UA) 3+, Urine Ketones Negative, Urine Blood 1+ A, Urine Nitrate Negative, Urine Bilirubin Negative, Urine Urobilinogen 0.2, Ur Leukocyte Esterase Negative, Urine RBC 20-50, Urine WBC 10-20, Ur Squamous Epith Cells 5-10, Urine Bacteria Trace, Urine Mucus 2+ 05/03/25 22:34: WBC 9.1, RBC 4.19 L, Hgb 12.2 L, Hct 37.7 L, MCV 90.0, MCH 29.1, MCHC 32.4, RDW 13.8, Plt Count 210, MPV 10.0, Neut % (Auto) 80.5 H, Lymph % (Auto) 12.0, Saline % (Auto) 5.9, Eos % (Auto) 1.2, Baso % (Auto) 0.2, Neut # (Auto) 7.4, Lymph # (Auto) 1.1, Saline # (Auto) 0.5, Eos # (Auto) 0.1, Baso # (Auto) 0.0, Sodium 137, Potassium 5.0, Chloride 104, Carbon Dioxide 25, Anion Gap 13.0, BUN 24 H, Creatinine 1.00, Estimated Creat Clear 62, Estimated GFR 74, Est GFR ( Amer) 90, Glucose 134 H, Calcium 9.4, Total Bilirubin 0.7, AST 27, ALT 14, Alkaline Phosphatase 125, Total Protein 8.4 H, Albumin 4.3, Globulin 4.1 H, Albumin/Globulin Ratio 1.0 L, Lipase 69 Orders (Tests/Meds): ED MEDICATIONS Generic Name Dose Route Start Last Admin Trade Name Freq PRN Reason Stop Dose Admin Lactated Ringer's 1,000 mls @ 100 mls/hr 05/04/25 00:15 Lactated Ringer's 1000 Ml Bag IV 06/03/25 00:14 .Q10H ESTUARDO Sodium Chloride 10 ml 05/03/25 23:13 05/03/25 23:13 Sodium Chloride 0.9% 10ml Syr (Rad Only) IV 06/02/25 23:12 10 ml NEEDED PRN Administration Maintain IV Site Discontinued Medications Generic Name Dose Route Start Last Admin Trade Name Freq PRN Reason Stop Dose Admin Acetaminophen 1,000 mg 05/03/25 22:35 05/03/25 22:49 Acetaminophen 1,000mg/100ml Vial IV 05/03/25 22:36 1,000 mg ONCE ONE Administration Iopamidol 75 ml 05/03/25 23:13 05/03/25 23:13 Iopamidol-370 (76%);100ml Bottle IV 05/03/25 23:14 75 ml ONCE ONE Administration Ketorolac Tromethamine 15 mg 05/03/25 22:35 05/03/25 22:48 Ketorolac 30mg/Ml Vial IV 05/03/25 22:36 15 mg ONCE ONE Administration ORDERS Category Date Time Status CT abdomen pelvis w con Stat Cat Scan 05/03/25 22:35 Completed CBC w/Auto Diff [Complete Blood Count Auto Diff] Stat Lab 05/03/25 22:34 Completed CMP [Comprehensive Metabolic Panel] Stat Lab 05/03/25 22:34 Completed Lipase Stat Lab 05/03/25 22:34 Completed UA [Urinalysis and Microscopic] Stat Lab 05/03/25 20:57 Completed Urine Culture Stat Micro 05/03/25 20:57 Received Medical Decision Narrative: 70-year-old male presenting with abdominal pain. He states that he was just sitting at dinner prior to this had acute onset right lower quadrant abdominal pain. He says it is associated with a bulging sensation in his right lower quadrant just lateral to his navel. Last bowel movement was just prior to this and was normal for him, no blood. He still passing gas. No vomit. Pain is moderate to severe in intensity, does not radiate. States that he has a history of bilateral inguinal hernia repair as well as appendectomy. This seems to feel similar to when he had his hernia repairs in the past. History obtained with patient. Differential includes hernia, nephrolithiasis, diverticulitis, bowel perforation, pancreatitis, colitis, proctitis, among others. Patient was given Toradol and fluids. Labs ordered. On independent interpretation of initial labs, nonactionable CBC or chemistry. Lipase negative. Urinalysis with blood and white blood cells. CT scan pending at time of handoff. Yun: Upon my assumption of care patient is stable. I agree with the assessment and plan from Dr. Alfaro. I reviewed labs which are reassuring though there are some WBCs and RBCs in the urine which could indicate infection or kidney stone, but CT was pending. Patient has no urinary symptoms lowering suspicion for infection. CT abdomen pelvis personally interpreted prior to radiology read demonstrates possible cecal volvulus with surrounding fat stranding. I do not appreciate evidence of kidney stone or cystitis. Radiology read has not yet resulted so I called [facility] and asked for the case to be escalated due to the potential severity of this condition. They are escalating the read of this study to be expedited. Radiology read does not indicate evidence of volvulus but does have concern for ileus versus partial bowel obstruction. See radiology read for full interpretation. I discussed this case with the surgeon on-call, Dr. Vo, she and I reviewed the images and she agrees that she is concerned there may have been a volvulus that untwisted versus partial bowel obstruction. Since patient has reassuring labs and symptoms at this time she recommended obtaining a lactic now and another 1 to be obtained in the morning, patient to be admitted overnight for observation, n.p.o., maintenance fluids, and only Toradol if needed for pain. She reports she will come in in the morning to assess the patient and consider taking him to the OR at that time if needed. I discussed this case with the hospitalist including the surgeons recommendations. Lactic has been ordered and sent to lab and I reported to the hospitalist that a repeat lactic in the a.m. is important. Patient was graciously accepted to the hospitalist for admission. Patient admitted in stable condition. Public Health Aides Teacher disclaimer Much of this encounter note is an electronic nutrition internship spoken language to printed text. Electronic nutrition internship of the spoken language may permit errors. Although I have reviewed the note, some errors may still exist. Critical Care <Bryan Alfaro MD - Last Filed: 05/03/25 23:09> Critical Care Time Critical Care Time: No
[2025-05-03] MEDS: IOPAMIDOL-370 (76%);100ML BOTTLE 75 ML IV (23:13)
[2025-05-03] MEDS: SODIUM CHLORIDE 0.9% 10ML SYR (RAD ONLY) 10 ML IV (23:13)
[2025-05-03 23:30] VITALS: BP 124/73; PULSE 80; O2SAT 98
[2025-05-04] VITALS (20 sets, daily range): BP systolic 109–153; BP diastolic 62–91; PULSE 61–80; RESP 14–18; TEMP 36.4–38; O2SAT 92–99; BMI 21.0
[2025-05-04] MEDS: LACTATED RINGERS 1000ML 1,000 ML 100 ML IV ×3 (00:27→11:12)
--- NOTE | 2025-05-04 00:27 | PC.NURSE ---
Report called to anthony
--- NOTE | 2025-05-04 01:04 | P.HP_ITS ---
<Statement entered by Lg Weller MD - 05/04/25 16:07> Rounded on patient after nurse practitioner. Personally examined and interviewed patient. Agree with exam findings and care plan as documented. Case discussed with surgery in the morning on rounds. Concern for volvulus or eloy obstruction. Plan to proceed with diagnostic laparoscopy. Patient agreeable. Patient's EF normal on recent echo. Independently mobile and functional. No chest pain equivalents or dyspnea with exertion. Patient has normal kidney function. He is average risk for elevated risk procedure. Recommend proceeding with laparoscopy. Risk for bleeding due to antiplatelet drugs. Discussed CODE STATUS with patient, will revoke DNR status during surgery. Resume DNR/DNI 24 hours after procedure. Reviewed procedure note after surgery, patient's diagnostic laparoscopy was converted to exploratory laparotomy with ileocecectomy. Found to have masslike lesion of either scar tissue or potentially tumor. Pathology pending. Labs this morning remarkably normal with white count of 8.5, hemoglobin 11.4. Kidney function normal BUN 21, creatinine 0.9. Lactate normal at 0.9. Repeat CBC, CMP, magnesium ordered for the morning. N.p.o. at this time Per my review of abdominal x-ray obtained at bedside this morning, has dilation of right lower abdomen concerning for volvulus or cecal obstruction. History of Present Illness *Admission Date: 05/04/25 *Reason for visit:: Abdominal pain *History of present illness: Mr. Quinones is a 70 male presents ER with complaints of abdominal pain. Patient has a past medical history of COPD, heart failure, hyperlipidemia, and coronary artery disease. Patient states he started to experience right lower quadrant pain about dinnertime. He states he had some nausea. He reports the pain felt like trapped gas/cramping. He reports this pain 7 out of 10. Reports nothing makes it worse. He reports meds that he got in the ER made it better. He reports normal bowel movements. Patient denies fever/chills, cough, congesti on, runny nose, dyspnea, chest pain, vomiting, diarrhea, constipation, headache, lightheadedness, dizziness, or syncope. [facility] Disclaimer: The information contained in this section may have been updated after the patient was seen, as this information can be updated by other users. Medical History HFrEF (heart failure with reduced ejection fraction) Cardiomyopathy DVT (deep venous thrombosis) HLD (hyperlipidemia) Hypotension Cardiac pacemaker in situ COPD (chronic obstructive pulmonary disease) Dyspnea CAD (coronary artery disease) Surgical History Stented coronary artery Social History Smoking Status: Never smoker second hand exposure: No alcohol intake: never substance use type: denies use current occupational status: unemployed Travel in the last 8 weeks?: None household members: none housing: house current occupational exposures/hazards: No caffeine: Yes Have you lived/traveled outside US in past 30 days?: No Contact w/someone who lives/traveled outside US past 30 days?: No Exposure to someone with infectious disease in past 14 days?: No Do you have a fever (greater than 100.4 F or 38 C)?: No Have you tested positive for COVID-19?: No Exposed to someone with COVID-19 in past 14 days?: No Do you have a sore throat?: No Do you have a cough?: No Do you have any weakness?: No Are you experiencing any nausea/vomitting?: No Do you have any diarrhea?: No Are you experiencing any unusual bleeding?: No Do you have any muscle aches/pain?: No Do you have any abdominal pain?: No Are you experiencing loss of taste or smell?: No Other Medical History Have you received the Flu Vaccine for this season: No Have you received the Pneumonia Vaccine: No Review of Systems Constitutional Constitutional: Denies chills, Denies fever(s) and Denies headache(s) ENT Ears, Nose, Mouth, and Throat: Denies headache(s) and Denies vertigo *Cardiovascular Cardiovascular: Denies chest pain and Denies dyspnea *Respiratory Respiratory: Denies cough and Denies dyspnea *Gastrointestinal Gastrointestinal: Reports abdominal pain, Denies constipation, Denies diarrhea, Reports nausea and Denies vomiting *Genitourinary Genitourinary: Reports system reviewed and no additional complaints, except as documented *Musculoskeletal Musculoskeletal: Reports system reviewed and no additional complaints, except as documented *Neurologic Neurologic: Denies headache(s) and Denies vertigo Allergic/Immunologic Allergic/Immunologic: Denies seasonal rhinorrhea Meds Home Medications and Allergies Home Medications ?Medication ?Instructions ?Recorded ?Confirmed ?Type aspirin 81 mg tablet,delayed 81 mg PO DAILY 03/28/22 0 05/04/25 History release (Adult Aspirin Regimen) sacubitril 24 mg-valsartan 26 mg 0.5 tab PO BID #90 ta bs 08/22/24 05/04/25 Rx tablet (Entresto) spironolactone 25 mg tablet 12.5 mg (1/2 x 25 mg) PO D AILY #30 09/24/24 05/04/25 Rx (Aldactone) tabs empagliflozin 10 mg tablet 10 mg PO DAILY #90 tabs 05/04/25 Rx (Jardiance) azelastine 137 mcg (0.1 %) nasal 2 spray intranasal BI D #60 mL 03/17/25 05/04/25 Rx spray ferrous sulfate 325 mg (65 mg 325 mg PO DAILY #30 tabs 04/18/25 05/04/25 Rx iron) tablet atorvastatin 40 mg tablet 40 mg PO HS 05/04/25 5 History carvedilol 6.25 mg tablet 6.25 mg PO BID 05/04/2504/07 History clopidogrel 75 mg tablet 75 mg PO DAILY 05/04/2504/07 History New Prescriptions to Start Prescriptions: Allergies Allergy/AdvReac Type Severity Reaction Status Date / Time No Known Drug Allergies Allergy Unknown Verified 03/17/25 08:38 Exam Data for Last 24 hours Vital signs and Labs for Last 24 Hours: Temp Pulse Resp BP Pulse Ox O2 Del Method 97.9 F 76 16 115/77 98 Room Air 05/04/25 00:31 05/04/25 00:31 05/04/25 00:31 05/04/25 00:31 05/04/25 00:00 05/04/25 00:31 Laboratory Results - last 24 hr 05/03/25 20:57: Urine Color Yellow, Urine Appearance Clear, Urine pH 6.0, Ur Specific [place] >= 1.030, Urine Protein Trace, Urine Glucose (UA) 3+, Urine Ketones Negative, Urine Blood 1+ A, Urine Nitrate Negative, Urine Bilirubin Negative, Urine Urobilinogen 0.2, Ur Leukocyte Esterase Negative, Urine RBC 20- 50, Urine WBC 10-20, Ur Squamous Epith Cells 5-10, Urine Bacteria Trace, Urine Mucus 2+ 05/03/25 22:34: WBC 9.1, RBC 4.19 L, Hgb 12.2 L, Hct 37.7 L, MCV 90.0, MCH 29.1, MCHC 32.4, RDW 13.8, Plt Count 210, MPV 10.0, Neut % (Auto) 80.5 H, Lymph % (Auto) 12.0, [place] % (Auto) 5.9, Eos % (Auto) 1.2, Baso % (Auto) 0.2, Neut # (Auto) 7.4, Lymph # (Auto) 1.1, [place] # (Auto) 0.5, Eos # (Auto) 0.1, Baso # (Auto) 0.0, Sodium 137, Potassium 5.0, Chloride 104, Carbon Dioxide 25, Anion Gap 13.0, BUN 24 H, Creatinine 1.00, Estimated Creat Clear 62, Estimated GFR 74, Est GFR ( Amer) 90, Glucose 134 H, Calcium 9.4, Total Bilirubin 0.7, AST 27, ALT 14, Alkaline Phosphatase 125, Total Protein 8.4 H, Albumin 4.3, Globulin 4.1 H, Albumin/Globulin Ratio 1.0 L, Lipase 69 05/04/25 00:15: Lactate 0.7 I & O for Last 24 hours: Intake & Output 05/01/25 05/02/25 05/03/25 05/04/25 23:59 23:59 23:59 23:59 Weight 62.596 kg *Routine HEENT Exam Head: Present normocephalic and atraumatic Eye: Present EOMI and PERRL ENT: Present mucous membranes moist and oropharynx clear *Routine Neck Exam Neck: Present supple and full ROM *Routine Respiratory Exam Respiratory: Present CTA bilaterally, able to speak in complete sentences and symmetric chest movement; Absent accessory muscle use or respiratory distress *Routine Cardiovascular Exam Cardiovascular: Present RRR, Normal S1 and Normal S2 *Routine Abdominal Exam Abdominal: Present soft, normoactive bowel sounds and tenderness (Right lower quadrant); Absent distended or obese *Routine Rectal Exam Rectal:: deferred *Routine Genitalia Exam Genitalia:: deferred *Routine Extremities Exam Extremities: Present full ROM; Absent edema *Routine Skin Exam Skin: Present intact, dry and warm *Routine Neurological Exam Neurological: Present alert, oriented X3 and CN II-XII intact Assessment and Plan *Assessment and plan (1) Partial bowel obstruction: Status: Acute Category: Medical Code(s): K56.600 - Partial intestinal obstruction, unspecified as to cause Plan: Reviewed CT of abdomen and pelvis: Concerning for ileus versus partial small bowel obstruction versus volvulus N.p.o. General Surgery following Lactic acid negative, repeat in a.m. LR to 100 mL an hour, monitor for fluid overload (2) Anemia: Status: Acute Category: Medical Code(s): D64.9 - Anemia, unspecified Plan: Repeat CBC in the a.m. Transfuse for hemoglobin less than 7 On Feosol 325 mg daily at home (3) Abdominal pain: Status: Acute Category: Medical Code(s): R10.9 - Unspecified abdominal pain Plan: Toradol 15 mg every 6 hours as needed for pain (4) COPD (chronic obstructive pulmonary disease): Status: Chronic Qualifiers: COPD type: unspecified COPD Qualified Code(s): J44.9 - Chronic obstructive pulmonary disease, unspecified Category: Medical Code(s): J44.9 - Chronic obstructive pulmonary disease, unspecified Plan: O2 as needed to maintain SpO2 88 to 92% DuoNebs every 6 hours as needed for shortness of breath/wheezing (5) Volvulus: Status: Acute Category: Medical Code(s): K56.2 - Volvulus Plan Spoke with Tari in the ER. She consulted Dr. Vo, general surgery for CT findings of partial small bowel obstruction versus ileus versus volvulus. My decision to admit was based on CT findings and the recommendation of general surgery.
--- NOTE | 2025-05-04 05:41 | PC.NURSE ---
Pt. a&ox4. Ambulating in room well. No complaints of pain since arriving to the floor. No bm since arrival but reports bm around 6pm on 05/03. Call light in reach.
--- NOTE | 2025-05-04 05:55 | PC.NURSE ---
Pt has recieved ice water and bedside tablehas been cleaned off.
[2025-05-04 06:42] LABS: Hematocrit 35.8 % (42.0-52.0); Hemoglobin 11.4 g/dL (14.1-18.0); Immature Granulocytes % 0.2 %; Mean Corpuscular HGB Conc 31.8 g/dL (31.8-35.4); Mean Corpuscular Hemoglobin 28.6 pg (27.0-31.2); Mean Corpuscular Volume 89.9 fl (80-94); Nucleated Red Blood Cells % 0 %; Platelet Count 189 K/mm3 (142-424); Red Blood Count 3.98 M/mm3 (4.60-6.20); Red Cell Distribution Width-SD 45.0 fL; White Blood Count 8.5 K/mm3 (4.8-10.8)
[2025-05-04 06:57] LABS: Chloride 106 mmol/L (98-107); Potassium 4.4 mmoL/L (3.5-5.1); Sodium 139 mmol/L (136-145)
[2025-05-04 07:00] LABS: Anion Gap 12.4 mEq/L (5-15); Blood Urea Nitrogen 21 mg/dl (9-20); Calcium 8.8 mg/dl (8.4-10.2); Carbon Dioxide 25 mmol/L (22.0-30.0); Creatinine Clearance Estimated 66 mL/min (50-200); Creatinine,Serum 0.90 mg/dl (0.66-1.25); Estimated Glomerular Filt Rate 84 ml/min (>60); GFR (African American) 101 ML/MIN (>60); Glucose 109 mg/dl (74-100)
[2025-05-04] MEDS: AZELASTINE NASAL SPRAY 30ML BOTTLE NS ×2 (08:44→20:23)
--- NOTE | 2025-05-04 09:35 | HMH.PHAINT1 ---
Pharmacy Intervention Comments: MEDICATION RECONCILIATION COMPLETE USING EXTERNAL PHARMACY FILL HISTORY, RECENT MD OFFICE VISIT NOTE.
--- NOTE | 2025-05-04 10:34 | XR_ITS ---
PROCEDURE INFORMATION: Exam: XR Abdomen Exam date and time: 05/04/2025 10:47 AM Age: 70 years old Clinical indication: Other: Bowel gas pattern; Additional info: F/u CT scan, bowel gas pattern TECHNIQUE: Imaging protocol: Radiologic exam of the abdomen. Views: Frontal supine view of the abdomen. 1 View. COMPARISON: CT ABDOMEN PELVIS W CON 05/03/2025 11:06 PM FINDINGS: Gastrointestinal tract: Dilated loops of bowel may represent obstruction or ileus.. Organs: Contrast in the bladder Bones/joints: Dextroscoliosis of the lumbar spine. Degenerative changes in both hips IMPRESSION: Dilated loops of bowel may represent obstruction or ileus..
--- NOTE | 2025-05-04 11:12 | EXP.SURG.CON ---
History of Present Illness *Admission Date: 05/04/25 *History of present illness: Mr. Quinones is a 70 male presents ER with complaints of abdominal pain. Patient has a past medical history of COPD, heart failure, hyperlipidemia, and coronary artery disease. Patient states he started to experience right lower quadrant pain about dinnertime. He states he had some nausea. He reports the pain felt like trapped gas/cramping. He reports this pain 7 out of 10. Reports nothing makes it worse. He reports meds that he got in the ER made it better. He reports normal bowel movements. Patient denies fever/chills, cough, congestion, runny nose, dyspnea, chest pain, vomiting, diarrhea, constipation, headache, lightheadedness, dizziness, or syncope. Mr. Venkata Quinones is a 70-year-old male with a history of coronary artery disease status post stents, COPD, pacemaker for bradycardia, and systolic heart failure (last EF 55%) who presented to the emergency room overnight with right lower quadrant abdominal pain. The pain came on after supper, and was cramping in nature. It has been sometimes severe, as much as 10 out of 10. Physical exam was notable for a bulge in the right lower quadrant that was obvious from inspection alone and this thin patient. In the emergency room, a CT scan showed dilated cecum and was read as possible partial colon obstruction or ileus. I reviewed the CT scan around midnight with the ER physician, and we looked at the images together. We were concerned there were some features of a cecal volvulus or bascule, but the radiologist did not think it met all criteria. His vital signs and labs were normal, and a lactate was normal. His pain was actually improving, and so he was stable for observation overnight. This morning, his vital signs continue to be normal, his labs are normal, his lactate is normal. He reports that his pain has started to increase again this morning. Last bowel movement was yesterday, and he does not recall the last time he passed flatus. In June 2024, he presented to this hospital with right lower quadrant pain and was found to have perforated appendicitis. At that time, he had a lactic acidosis, and was unstable. He was transferred to [place] for laparoscopic appendectomy. [facility] Disclaimer: The information contained in this section may have been updated after the patient was seen, as this information can be updated by other users. Medical History HFrEF (heart failure with reduced ejection fraction) Cardiomyopathy DVT (deep venous thrombosis) HLD (hyperlipidemia) Hypotension Cardiac pacemaker in situ COPD (chronic obstructive pulmonary disease) Dyspnea CAD (coronary artery disease) Surgical History Stented coronary artery Social History Smoking Status: Never smoker second hand exposure: No alcohol intake: never substance use type: denies use current occupational status: unemployed Travel in the last 8 weeks?: None household members: none housing: house current occupational exposures/hazards: No caffeine: Yes Have you lived/traveled outside US in past 30 days?: No Contact w/someone who lives/traveled outside US past 30 days?: No Exposure to someone with infectious disease in past 14 days?: No Do you have a fever (greater than 100.4 F or 38 C)?: No Have you tested positive for COVID-19?: No Exposed to someone with COVID-19 in past 14 days?: No Do you have a sore throat?: No Do you have a cough?: No Do you have any weakness?: No Are you experiencing any nausea/vomitting?: No Do you have any diarrhea?: No Are you experiencing any unusual bleeding?: No Do you have any muscle aches/pain?: No Do you have any abdominal pain?: No Are you experiencing loss of taste or smell?: No Review of Systems Review of Systems Review of systems:: pertinent systems reviewed and negative unless documented below Constitutional Constitutional: Denies headache(s) ENT Ears, Nose, Mouth, and Throat: Denies headache(s) and Denies vertigo *Gastrointestinal Gastrointestinal: Reports abdominal pain and Denies vomiting *Neurologic Neurologic: Denies headache(s) and Denies vertigo Meds Home Medications and Allergies Home Medications ?Medication ?Instructions ?Recorded ?Confirmed ?Type aspirin 81 mg tablet,delayed 81 mg PO DAILY 03/28/22 05/04/25 History release (Adult Aspirin Regimen) sacubitril 24 mg-valsartan 26 mg 0.5 tab PO BID #90 tabs 08/22/24 05/04/25 Rx tablet (Entresto) spironolactone 25 mg tablet 12.5 mg (1/2 x 25 mg) PO DAILY #30 09/24/24 05/04/25 Rx (Aldactone) tabs empagliflozin 10 mg tablet 10 mg PO DAILY #90 tabs 11/25/24 05/04/25 Rx (Jardiance) azelastine 137 mcg (0.1 %) nasal 2 spray intranasal BID #60 mL 03/17/25 05/04/25 Rx spray ferrous sulfate 325 mg (65 mg 325 mg PO DAILY #30 tabs 04/18/25 05/04/25 Rx iron) tablet atorvastatin 40 mg tablet 40 mg PO HS 05/04/25 05/04/25 History carvedilol 6.25 mg tablet 6.25 mg PO BID 05/04/25 05/04/25 History clopidogrel 75 mg tablet 75 mg PO DAILY 05/04/25 05/04/25 History New Prescriptions to Start Prescriptions: Allergies Allergy/AdvReac Type Severity Reaction Status Date / Time No Known Drug Allergies Allergy Unknown Verified 03/17/25 08:38 Exam (Inpt) Vital signs and Labs for Last 24 Hours: Temp Pulse Resp BP Pulse Ox O2 Del Method 97.8 F 79 16 153/82 H 98 Room Air 05/04/25 04:00 05/04/25 04:00 05/04/25 04:00 05/04/25 04:00 05/04/25 04:00 05/04/25 08:50 Laboratory Results - last 24 hr 05/03/25 20:57: Urine Color Yellow, Urine Appearance Clear, Urine pH 6.0, Ur Specific [place] >= 1.030, Urine Protein Trace, Urine Glucose (UA) 3+, Urine Ketones Negative, Urine Blood 1+ A, Urine Nitrate Negative, Urine Bilirubin Negative, Urine Urobilinogen 0.2, Ur Leukocyte Esterase Negative, Urine RBC 20-50, Urine WBC 10-20, Ur Squamous Epith Cells 5-10, Urine Bacteria Trace, Urine Mucus 2+ 05/03/25 22:34: WBC 9.1, RBC 4.19 L, Hgb 12.2 L, Hct 37.7 L, MCV 90.0, MCH 29.1, MCHC 32.4, RDW 13.8, Plt Count 210, MPV 10.0, Neut % (Auto) 80.5 H, Lymph % (Auto) 12.0, [place] % (Auto) 5.9, Eos % (Auto) 1.2, Baso % (Auto) 0.2, Neut # (Auto) 7.4, Lymph # (Auto) 1.1, [place] # (Auto) 0.5, Eos # (Auto) 0.1, Baso # (Auto) 0.0, Sodium 137, Potassium 5.0, Chloride 104, Carbon Dioxide 25, Anion Gap 13.0, BUN 24 H, Creatinine 1.00, Estimated Creat Clear 62, Estimated GFR 74, Est GFR ( Amer) 90, Glucose 134 H, Calcium 9.4, Total Bilirubin 0.7, AST 27, ALT 14, Alkaline Phosphatase 125, Total Protein 8.4 H, Albumin 4.3, Globulin 4.1 H, Albumin/Globulin Ratio 1.0 L, Lipase 69 05/04/25 00:15: Lactate 0.7 05/04/25 06:35: WBC 8.5, RBC 3.98 L, Hgb 11.4 L, Hct 35.8 L, MCV 89.9, MCH 28.6, MCHC 31.8, RDW 13.7, Plt Count 189, MPV 9.9, Neut % (Auto) 74.7, Lymph % (Auto) 16.1, [place] % (Auto) 8.3, Eos % (Auto) 0.6, Baso % (Auto) 0.1, Neut # (Auto) 6.3, Lymph # (Auto) 1.4, [place] # (Auto) 0.7, Eos # (Auto) 0.1, Baso # (Auto) 0.0, Sodium 139, Potassium 4.4, Chloride 106, Carbon Dioxide 25, Anion Gap 12.4, BUN 21 H, Creatinine 0.90, Estimated Creat Clear 66, Estimated GFR 84, Est GFR ( Amer) 101, Glucose 109 H, Lactate 0.9, Calcium 8.8 I & O for Labs for Last 24 Hours: Intake & Output 05/01/25 05/02/25 05/03/25 05/04/25 23:59 23:59 23:59 23:59 Intake Total 666 / 666 Balance 666 / 666 Weight 138 lb 146 lb 14.4 oz Constitutional: no acute distress and cooperative Head: Present normocephalic and atraumatic Eyes: Absent eye discharge ENT exam ED: Present normal oropharynx and mucous membranes moist Neck: Present normal inspection Respiratory: Present CTA bilaterally; Absent accessory muscle use Cardiac: Present Reg Rate and Rhythm GI: Present soft; Absent distention Comments:: Lap scars. Bilateral inguinal scars. Scaphoid abdomen. Hypoactive bowel sounds. Palpable bulge in right lower quadrant that is tender, with nonvoluntary guarding. (male): Present deferred Extremities: Present normal inspection Skin: Present intact; Absent cyanosis or erythema Neuro: Present alert, awake and oriented x 3 Results Labs 05/04/25 06:35 05/04/25 06:35 Labs: Laboratory Results - last 24 hr 05/03/25 20:57: Urine Color Yellow, Urine Appearance Clear, Urine pH 6.0, Ur Specific [place] >= 1.030, Urine Protein Trace, Urine Glucose (UA) 3+, Urine Ketones Negative, Urine Blood 1+ A, Urine Nitrate Negative, Urine Bilirubin Negative, Urine Urobilinogen 0.2, Ur Leukocyte Esterase Negative, Urine RBC 20-50, Urine WBC 10-20, Ur Squamous Epith Cells 5-10, Urine Bacteria Trace, Urine Mucus 2+ 05/03/25 22:34: WBC 9.1, RBC 4.19 L, Hgb 12.2 L, Hct 37.7 L, MCV 90.0, MCH 29.1, MCHC 32.4, RDW 13.8, Plt Count 210, MPV 10.0, Neut % (Auto) 80.5 H, Lymph % (Auto) 12.0, [place] % (Auto) 5.9, Eos % (Auto) 1.2, Baso % (Auto) 0.2, Neut # (Auto) 7.4, Lymph # (Auto) 1.1, [place] # (Auto) 0.5, Eos # (Auto) 0.1, Baso # (Auto) 0.0, Sodium 137, Potassium 5.0, Chloride 104, Carbon Dioxide 25, Anion Gap 13.0, BUN 24 H, Creatinine 1.00, Estimated Creat Clear 62, Estimated GFR 74, Est GFR ( Amer) 90, Glucose 134 H, Calcium 9.4, Total Bilirubin 0.7, AST 27, ALT 14, Alkaline Phosphatase 125, Total Protein 8.4 H, Albumin 4.3, Globulin 4.1 H, Albumin/Globulin Ratio 1.0 L, Lipase 69 05/04/25 00:15: Lactate 0.7 05/04/25 06:35: WBC 8.5, RBC 3.98 L, Hgb 11.4 L, Hct 35.8 L, MCV 89.9, MCH 28.6, MCHC 31.8, RDW 13.7, Plt Count 189, MPV 9.9, Neut % (Auto) 74.7, Lymph % (Auto) 16.1, [place] % (Auto) 8.3, Eos % (Auto) 0.6, Baso % (Auto) 0.1, Neut # (Auto) 6.3, Lymph # (Auto) 1.4, [place] # (Auto) 0.7, Eos # (Auto) 0.1, Baso # (Auto) 0.0, Sodium 139, Potassium 4.4, Chloride 106, Carbon Dioxide 25, Anion Gap 12.4, BUN 21 H, Creatinine 0.90, Estimated Creat Clear 66, Estimated GFR 84, Est GFR ( Amer) 101, Glucose 109 H, Lactate 0.9, Calcium 8.8 Imaging Abdominal x-ray: image reviewed CT scan - abdomen: report reviewed and image reviewed Assessment and Plan *Assessment and plan (1) Right lower quadrant abdominal pain: Status: Acute Category: Medical Code(s): R10.31 - Right lower quadrant pain Plan: 70-year-old male with history significant for coronary artery disease, CHF, COPD, presenting with right lower quadrant pain and cecal dilation on CT scan. This morning after observation, his vital signs are normal, his labs are normal, and he has never had a lactic acidosis. These results are encouraging, but he continues to have abdominal pain which has worsened this morning, and a KUB does not show significantly improved cecal dilation (radiology read pending). The differential diagnosis for his pain and CT scan findings include cecal bascule, cecal volvulus, colitis, constipation, large bowel obstruction secondary to adhesive disease from previous ruptured appendicitis, malignancy causing obstruction. I discussed the options with the patient. He is a higher risk operative candidate given his heart history and his antiplatelet therapy. We discussed that missing a volvulus and subsequent ischemic bowel may be more dangerous than diagnostic laparoscopy at a time when he is stable. There is also possibility that he has venous outflow obstruction due to volvulus, and this is why all of his labs are normal despite ischemic bowel. He is agreeable to diagnostic laparoscopy, and if there are findings of ischemic bowel or volvulus, to be converted to exploratory laparotomy with ileocecectomy. The risk, benefits, and alternatives to surgery were discussed, including but not limited to heart attack, stroke, , ICU stay, pulmonary complications, DVT or PE, infection, bleeding, need for blood transfusion, prolonged hospital stay, anastomotic leak. He understands and wishes to proceed. His medical history and his cardiology diagnostics were reviewed with the hospitalist, and he appears to be as optimized as possible cardiology dixon. Ancef 2 g on-call to the OR. Perioperative Lovenox deferred due to antiplatelet therapy
--- NOTE | 2025-05-04 11:58 | ECG_ITS ---
APPROVED REPORT Exam: Resting ECG HR:66 bpm ECG Measurements Heart Rate 66 AXES [place] 160 P 85 QRSd 110 QRS 85 QT 399 T 71 QTc 412 Conclusion SINUS RHYTHM WITH Intermittent pacer spikes noted Q waves do not reach levels of significance BORDERLINE ECG UNCONFIRMED REPORT Electronically signed by : Phoenix Carver MD 05/05/2025 08:38:07
--- NOTE | 2025-05-04 12:06 | PC.NURSE ---
Pt leaving med/surg floor for surgery @ this time.
--- NOTE | 2025-05-04 12:27 | P.PNANES_ITS ---
[facility] Disclaimer: The information contained in this section may have been updated after the patient was seen, as this information can be updated by other users. Medical History HFrEF (heart failure with reduced ejection fraction) Cardiomyopathy DVT (deep venous thrombosis) HLD (hyperlipidemia) Hypotension Cardiac pacemaker in situ COPD (chronic obstructive pulmonary disease) Dyspnea CAD (coronary artery disease) Surgical History Stented coronary artery Social History Smoking Status: Never smoker second hand exposure: No alcohol intake: never substance use type: denies use current occupational status: unemployed Travel in the last 8 weeks?: None household members: none housing: house current occupational exposures/hazards: No caffeine: Yes Have you lived/traveled outside US in past 30 days?: No Contact w/someone who lives/traveled outside US past 30 days?: No Exposure to someone with infectious disease in past 14 days?: No Do you have a fever (greater than 100.4 F or 38 C)?: No Have you tested positive for COVID-19?: No Exposed to someone with COVID-19 in past 14 days?: No Do you have a sore throat?: No Do you have a cough?: No Do you have any weakness?: No Are you experiencing any nausea/vomitting?: No Do you have any diarrhea?: No Are you experiencing any unusual bleeding?: No Do you have any muscle aches/pain?: No Do you have any abdominal pain?: No Are you experiencing loss of taste or smell?: No [facility] Anesthesia Checklist Patient Identification Patient Identification: Arm Band Structural Data Admitted From: Inpatient Planned Operative Procedure/s: Diagnostic Laparoscopy, Possible Exploratory Laparotomy Consent for Planned Operative Procedure(s) Verified: Yes Verified Documents: Surgical Consent and History and Physical NPO Status Verified Time NPO: 00:00 Additional verifications Anesthesia Reactions: No Airway Assessment Mallampati Score:: Class I C-Spine Mobility Assessed: Yes TMJ Mobility Assessed: Yes Dentition: Good Dentition (upper dentures removed) Neurological Assessment Level of Consciousness: Awake, Alert and Appropriate Anesthesia Plan Anesthesia Risk discussed: Yes Anesthesia Plan: Verified ASA Class: III Anesthesia Type: General
--- NOTE | 2025-05-04 14:05 | P.OP_ITS ---
Date of procedure: 05/04/25 Pre-op Diagnosis:: Right lower quadrant Post-op Diagnosis:: Large bowel obstruction (cecum) Procedure performed:: Diagnostic laparoscopy converted to exploratory laparotomy with ileocecectomy Surgeon:: Sayda Vo MD Anesthesia: TOY Estimated blood loss (mL): 100 Clinical Note:: Mr. Venkata Quinones is a 70-year-old male who presents with 1 day of right lower quadrant pain. A CT scan showed cecal dilation but without the classic attributes of a cecal volvulus or cecal bascule. He had normal vital signs and lab values, and a KUB this morning showed stable cecal dilation. His abdominal pain persisted today, however, and so the decision was made for exploration. The risks, benefits, and alternatives to the procedure were explained to the patient he gave informed consent. Please see consultation for details. Operative findings:: Large bowel obstruction at cecum secondary to firm mass or scar tissue. Operative note:: After informed consent was taken, the patient was taken to the operating room and laid in the supine position. He was intubated and sedated by anesthesia staff. Hull catheter was placed the abdomen was prepped and draped sterilely. He received 2 g of Ancef IV. Lovenox was not given, as he was already on chronic aspirin and Plavix therapy for his history of coronary artery disease. The abdomen was surveyed and since he had an obvious distended cecum in the right lower quadrant, decision was made to enter at Brennan's point as far away from the cecum as possible. Incision was made in the left upper quadrant at Brennan's point, and the abdomen was entered under direct visualization using a 5 mm Optiview trocar. The abdomen was insufflated to 16 mmHg, and diagnostic laparoscopy was performed. There was no injury from the entrance technique. The cecum was grossly dilated, but not at all ischemic. There were some reactive ascites, but no purulence or enteric contents. Additional 5 mm ports were placed at old incision sites in the left lower quadrant in the suprapubic area. The cecum was followed up from the terminal ileum to a point of obstruction. The right colon distal to this was decompressed. It was not read lew apparent what was causing the obstruction. During manipulating the cecum and right colon, some gas from the cecum was decompressed into the right colon but this was incomplete. From what I could ascertain, there was either a very hard mass or knot of scar tissue tethering the cecum down to the mesentery and obstructing it. Attempts were made to liberate the cecum from this area, but were unsuccessful, and it appeared that if I continued to try to dissect, there would be a bowel injury. For these reasons, it seemed that I would need to open and prepare for an ileocecectomy to resolve this bowel obstruction. Before opening, I used the harmonic scalpel to dissect along the white line of T[place]t from the hepatic flexure down to the cecum, and was able to easily open up this plane and mobilize the right colon. Laparotomy instruments were open and counted, and then a midline incision was made from the lower abdomen to just above the umbilicus. The subcutaneous tissues were dissected with cautery, and the fascia was incised with cautery. The abdomen was entered. The cecum and ileum were eviscerated. Palpation of the obstructed area revealed a rockhard mass. It was still not apparent whether this was a tumor or scar tissue. The ileum was divided approximately 10 cm from the terminal ileum using a white load 75 mm CELESTE stapler, and the right colon was divided approximately 10 cm distal to the obstruction. The intervening mesentery was divided using an Ensure. The specimen was removed and passed off the field. There was 1 briskly bleeding vessel from the mesentery, which was controlled with a 2-0 silk mattress suture. A [id number] functional end-to-end anastomosis was performed from the ileum to the right colon using a single white load fire of the 75 mm CELESTE stapler. The common enterotomy was closed in 2 layers with 2-0 silk. The mesenteric defect was closed with running 2-0 silk. The anastomosis was widely patent, and lay nicely without tension. The abdomen was checked for hemostasis, and although there had been near constant diffuse oozing during the case, presumably because he had been on antiplatelet therapy, the case was hemostatic at the end. The abdomen was irrigated with 1 L of warm saline which was suctioned. The fascia was closed with running oh looped PDS. All skin incisions were closed with gaston, sterile dressings were placed. ALIREZA blocks were performed at the end of the case by anesthesia staff, and then the patient was awakened and taken recovery in good condition. Condition: stable Disposition: PACU Specimens:: Ileum and cecum Complications:: None immediate
--- NOTE | 2025-05-04 14:17 | EXP.ANES.I ---
[facility] Anesthesia Record Part I Anesthesia Record I Intake, IV Amount: 1,700 Hydration: Adequate Estimated blood loss (mL): 100 Urine output (mL): 50 Blood Products used (#): none Blood Pressure: 116/66 SaO2: 98 Pulse Rate: 63 Airway Patency: Patent Respiratory Rate: 16 Temperature: 97.9 F Patient is:: Drowsy, Oral/Nasal airway and Stable Stable to PACU at:: 14:15
[2025-05-04] MEDS: MORPHINE 2MG/ML SYRINGE 2 MG IV (14:40)
[2025-05-04] MEDS: HYDROMORPHONE 2MG/ML SYRINGE 0.5 MG IV ×4 (14:45→15:00)
--- NOTE | 2025-05-04 15:09 | PC.NURSE ---
Pt back from surgery @ this time
[2025-05-04 15:20] LABS: Microscopic,Cath URINE MICROSCOPIC (MICROSCOPIC)
[2025-05-04 15:27] LABS: Appearance,Urine/Cath CLEAR (Clear); Blood, Urine/Cath 3+ (Negative); Color,Urine/Cath YELLOW (Yellow); Glucose,Urine/Cath (UA) 3+ (Negative); Ketones,Urine/Cath TRACE (Negative); Leukocyte Esterase,Cath Negative (Negative); Nitrate,Cath Negative (Negative); PH,Urine/Cath 5.5 (5.0-8.5); Protein,Urine/Cath 2+ (Negative); Specific Gravity, Urine/Cath >= 1.030 (1.005-1.030); Urobilinogen,Cath 0.2 EU/dl (0.2)
[2025-05-04 15:30] LABS: Bilirubin,Cath Negative (Negative)
[2025-05-04 15:38] LABS: Bacteria,Urine/Cath OCCASSIONAL /lpf
[2025-05-04] MEDS: OXYCODONE 10MG W/APAP 325MG TABLET 1 EACH PO ×2 (17:53→22:01)
--- OUTSIDE RECORDS SUMMARY | 2025-05-04 18:34 | XMS_ITS | Clinical Summary ---
Author Organization Healthcare Address [address] [place] [address] Care Team Providers Care Medical Accounts Receivable Specialist Name Role Phone Miguel Quiñones MD Primary Care Provider [phone] Allergies No known active allergies Medications methocarbamol [...] UKY-Abdominal Aortic Aneurys m (AAA) Screening 01/22/2021 [id number] Vaccine (1 - 20 24-25 season) 2024 [...] Antibody Negative Negative 06/13/2024 12:13 PM EDT [facility] Blood Venous blood specimen / Unknown Venipuncture / Unknown 06/13/2024 11:00 AM EDT 06/13/2024 11:15 AM EDT [facility] BLOOD ORDERABLES Chanelle lorenzo Result Performing Organization Address City/State/[facility] Co de Phone Number HEALTH[facility]ARE [facility] [address] [place] [phone] from Last 3 Months or Most Recently Relevant to Health Maintenance Insurance MEDICARE [employer] [facility] Advance Directives * Full Code (Latest Code Status on File) Date Activated Date Inactivated Comments 06/13/2024 4:48 PM 06/15/2024 4:41 PM Question Answer Comments Patient has decision-making capacity? Yes Care Teams Medical Accounts Receivable Specialist Relationship Specialty Start Date End Date Miguel Quiñones MD [address] [place] [address] [address] [place] [address] PCP - General 03/19/21
[2025-05-05] VITALS (7 sets, daily range): BP systolic 96–143; BP diastolic 51–81; PULSE 65–85; RESP 14–20; TEMP 36.6–37; O2SAT 91–98; BMI 49.1; BMI 21.9
[2025-05-05] MEDS: LACTATED RINGERS 1000ML 1,000 ML 100 ML IV (00:44)
[2025-05-05] MEDS: OXYCODONE 10MG W/APAP 325MG TABLET 1 EACH PO ×4 (01:56→20:22)
--- NOTE | 2025-05-05 06:37 | PC.NURSE ---
Patient alert and oriented all night. Patient pain has been kept under control with receiving pain meds every 4 hours. Patient has midline incision with 2 lap sites all is covered with 4x4's abdominal pad and tape, it is dry and still intact. Patient has rested on and off all night. Patient received both bags of antibiotics during the night. Patient has bender cath in place.
[2025-05-05 06:47] LABS: Hematocrit 30.1 % (42.0-52.0); Immature Granulocytes % 0 %; Mean Corpuscular HGB Conc 31.9 g/dL (31.8-35.4); Mean Corpuscular Hemoglobin 29.2 pg (27.0-31.2); Mean Corpuscular Volume 91.5 fl (80-94); Nucleated Red Blood Cells % 0 %; Platelet Count 165 K/mm3 (142-424); Red Blood Count 3.29 M/mm3 (4.60-6.20); Red Cell Distribution Width-SD 45.4 fL; White Blood Count 5.2 K/mm3 (4.8-10.8)
[2025-05-05 06:50] LABS: Albumin Level 3.1 g/dl (3.5-5.0); Chloride 102 mmol/L (98-107); Potassium 4.7 mmoL/L (3.5-5.1); Sodium 135 mmol/L (136-145)
[2025-05-05 06:53] LABS: Alanine Aminotransferase 14 U/L (12-78); Albumin/Globulin Ratio 1.1 (1.1-1.8); Alkaline Phosphatase 97 U/L (38-126); Anion Gap 10.7 mEq/L (5-15); Aspartate Amino Transferase 24 U/L (17-59); Bilirubin,Total 0.4 mg/dl (0.2-1.3); Blood Urea Nitrogen 18 mg/dl (9-20); Calcium 7.8 mg/dl (8.4-10.2); Carbon Dioxide 27 mmol/L (22.0-30.0); Creatinine Clearance Estimated 72 mL/min (50-200); Creatinine,Serum 0.90 mg/dl (0.66-1.25); Estimated Glomerular Filt Rate 84 ml/min (>60); GFR (African American) 101 ML/MIN (>60); Globulin 2.9 g/dL (1.3-3.2); Glucose 101 mg/dl (74-100); Total Protein,Serum 6.0 g/dl (6.3-8.2)
[2025-05-05 06:54] LABS: Magnesium 1.7 mg/dl (1.6-2.3)
[2025-05-05 07:46] LABS: Hemoglobin 9.6 g/dL (14.1-18.0)
--- NOTE | 2025-05-05 08:31 | P.PNANES_ITS ---
[facility] Anesthesia Record Part II Anesthesia Record Part II Discharge Time: 14:45 Destination: Medical Surgical Department PACU nurse assessment reviewed?: Yes Patient Condition:: Good Anesthesia Complications:: None Swallowing reflex intact?: Yes Airway Patency: Patent Cyanosis?: No Blood Pressure: 125/81 SaO2: 93 Respiratory Rate: 16 Pulse Rate: 70 Temperature: 97.9 F Mental Status: Alert & Oriented Pain level:: 5 Nausea and/or vomitting:: None Intake, IV Amount: 0 Hydration: Adequate
[2025-05-05] MEDS: AZELASTINE NASAL SPRAY 30ML BOTTLE NS ×2 (09:06→20:22)
--- NOTE | 2025-05-05 10:19 | P.PN_ITS ---
<Statement entered by Lg Weller MD - 05/05/25 13:46> Rounded on patient after nurse practitioner. Personally examined and interviewed patient. Agree with exam findings and care plan as documented. Subjective *Date: 05/05/25 *Time: 11:27 Interval history: Patient is sitting up in bed family at bedside. He does not complain of any pain at this time. Denies nausea, vomiting, shortness of breath. He states he was able to tolerate a clear liquid diet without problem this morning. He is having intermittent postoperative abdominal pain. He states he has not passed flatus. Medical Exam Vital signs and Labs for Last 24 Hours: Vital Signs Temp Pulse Pulse Resp BP BP Pulse Ox 05/05/25 09:00 05/05/25 08:32 16 05/05/25 08:00 98.1 F 65 16 99/56 L 95 05/05/25 07:48 05/05/25 06:36 05/05/25 05:00 05/05/25 04:00 98.6 F 78 14 143/56 H 98 05/05/25 02:56 05/05/25 01:00 05/05/25 00:00 98.3 F 85 14 101/60 L 95 05/04/25 23:00 05/04/25 21:00 05/04/25 20:00 98.2 F 74 14 109/62 L 94 L 05/04/25 20:00 94 L 05/04/25 18:55 05/04/25 17:55 72 16 118/73 92 L 05/04/25 17:25 97.8 F 71 17 144/91 H 99 05/04/25 17:00 05/04/25 16:55 62 18 131/73 99 05/04/25 16:25 79 18 129/79 96 05/04/25 15:55 79 18 119/70 96 05/04/25 15:40 70 16 118/69 93 L 05/04/25 15:25 72 16 128/72 92 L 05/04/25 15:10 97.6 F 72 18 140/87 94 L 05/04/25 14:45 97.9 F 70 16 125/81 93 L 05/04/25 14:35 97.9 F 70 16 119/79 96 05/04/25 14:25 97.9 F 61 16 120/70 96 05/04/25 14:17 97.9 F 63 16 116/66 05/04/25 14:15 97.9 F 62 16 116/66 99 05/04/25 11:46 97.8 F 79 16 153/82 H 98 05/04/25 11:00 O2 Del Method O2 Flow Rate 05/05/25 09:00 Room Air 05/05/25 08:32 05/05/25 08:00 Room Air 05/05/25 07:48 Room Air 05/05/25 06:36 Room Air 05/05/25 05:00 Room Air 05/05/25 04:00 Room Air 05/05/25 02:56 Room Air 05/05/25 01:00 Room Air 05/05/25 00:00 Room Air 05/04/25 23:00 Room Air 05/04/25 21:00 Room Air 05/04/25 20:00 Room Air 05/04/25 20:00 Room Air 05/04/25 18:55 Room Air 05/04/25 17:55 Room Air 05/04/25 17:25 Nasal Cannula 2 05/04/25 17:00 Nasal Cannula 2 05/04/25 16:55 Nasal Cannula 2 05/04/25 16:25 Nasal Cannula 2 05/04/25 15:55 Nasal Cannula 2 05/04/25 15:40 Nasal Cannula 2 05/04/25 15:25 Nasal Cannula 2 05/04/25 15:10 Room Air 05/04/25 14:45 Nasal Cannula 2 05/04/25 14:35 Room Air 05/04/25 14:25 Room Air 05/04/25 14:17 05/04/25 14:15 Room Air 05/04/25 11:46 Room Air 05/04/25 11:00 Room Air Intake and Output 05/04/25 05/05/25 05/05/25 23:59 07:59 15:59 Intake Total 120 / 3586 1717 / 2557 840 / 2557 Output Total 450 / 450 175 / 175 Balance -330 / 3136 1542 / 2382 840 / 2382 Intake: Intake, Oral Amount 120 / 120 840 / 840 Intake, Total IV Amount 1717 / 1717 0 / 1717 Cefazolin Sodium 2 gm In 0.9 % 200 / 200 Sodium Chloride 100 ml @ 200 mls/hr IV Q[facility] Rx#:[id number] Lactated Ringers 1000ML 1,000 1517 / 1517 ml @ 100 mls/hr IV .Q10H [facility] Rx #:[id number] Output: Output, Urine Amount 450 / 450 175 / 175 Other: Number of Unmeasured Voids 0 0 Weight 155.8 kg Patient Weight 05/05/25 23:59 Weight 155.8 kg Laboratory Results - last 24 hr 05/04/25 12:16: Urine Color Yellow, Urine Appearance Clear, Urine pH 5.5, Ur Specific [place] >= 1.030, Urine Protein 2+, Urine Glucose (UA) 3+, Urine Ketones Trace, Urine Blood 3+, Urine Nitrate Negative, Urine Bilirubin Negative, Urine Urobilinogen 0.2, Ur Leukocyte Esterase Negative, Urine RBC 5-10, Urine WBC 5-10, Ur Squamous Epith Cells 3-5, Urine Bacteria Occassional 05/05/25 06:30: WBC 5.2 D, RBC 3.29 L, Hgb 9.6 L D, Hct 30.1 L, MCV 91.5, MCH 29.2, MCHC 31.9, RDW 13.8, Plt Count 165, MPV 9.9, Neut % (Auto) 67.6, Lymph % (Auto) 20.3, [place] % (Auto) 11.7 H, Eos % (Auto) 0.2, Baso % (Auto) 0.2, Neut # (Auto) 3.5, Lymph # (Auto) 1.1, [place] # (Auto) 0.6, Eos # (Auto) 0.0, Baso # (Auto) 0.0, Sodium 135 L, Potassium 4.7, Chloride 102, Carbon Dioxide 27, Anion Gap 10.7, BUN 18, Creatinine 0.90, Estimated Creat Clear 72, Estimated GFR 84, Est GFR ( Amer) 101, Glucose 101 H, Calcium 7.8 L, Magnesium 1.7, Total Bilirubin 0.4, AST 24, ALT 14, Alkaline Phosphatase 97, Total Protein 6.0 L D, Albumin 3.1 L D, Globulin 2.9, Albumin/Globulin Ratio 1.1 I & O for Labs for Last 24 Hours: Intake & Output 05/02/25 05/03/25 05/04/25 05/05/25 23:59 23:59 23:59 23:59 Intake Total 2486 / 3586 2557 / 2557 Output Total 450 / 450 175 / 175 Balance 2036 / 3136 2382 / 2382 Weight 62.596 kg 66.633 kg 155.8 kg Microbiology Reports for the Last 24 Hours: Microbiology 05/03/25 20:57 Urine,Clean Catch Urine Culture - Final NO GROWTH AFTER 48 HOURS Constitutional: Present no acute distress and thin Head: Present atraumatic Eyes: Present as per HPI ENT: Present normal exam Neck: Present normal inspection and full ROM Respiratory: Present CTA bilaterally, able to speak in complete sentences and symmetric chest movement Cardiac: Present Reg Rate and Rhythm GI: Present soft, tenderness and hypoactive bowel sounds; Absent distention Rectal (male): Present deferred Comment:: Hull catheter in place Extremities: Present normal inspection and full ROM Skin: Present intact and dry Neuro: Present alert, awake and oriented x 3 Assessment and Plan *Assessment and plan (1) Volvulus: Status: Acute Category: Medical Code(s): K56.2 - Volvulus (2) Right lower quadrant abdominal pain: Status: Acute Category: Medical Code(s): R10.31 - Right lower quadrant pain (3) HLD (hyperlipidemia): Status: Chronic Qualifiers: Hyperlipidemia type: mixed hyperlipidemia Qualified Code(s): E78.2 - Mixed hyperlipidemia Category: Medical Code(s): E78.5 - Hyperlipidemia, unspecified (4) (HFpEF) heart failure with preserved ejection fraction: Status: Acute Category: Medical Code(s): I50.30 - Unspecified diastolic (congestive) heart failure Plan Mr. Quinones is a 70-year-old male who was admitted to the hospital with a volvulus versus bowel obstruction. He was taken to surgery 05/04 and a exploratory laparotomy with ileocecectomy was performed. Patient was then admitted to the hospital for further monitoring. Patient feels well today he is tolerating a clear liquid diet without any issues. He states that his abdominal pain is well-controlled on the pain medication regimen. He is not passing flatus and has not had a bowel movement. Bowel sounds are hypoactive in all 4 quadrants. #Volvulus #Status post exploratory laparotomy with ileocecectomy #Right lower quadrant abdominal pain ? Patient is postsurgical day 1. Dressing on abdomen clean dry and intact. Patient complains of minimal abdominal pain. Tolerating diet without issue. Lab work unremarkable. Hull catheter in place, will discontinue this afternoon. Discussed ambulation today with assistance from nursing staff if needed. ? Patient received IV fluids overnight, patient is tolerating clear liquid diet and fluids orally. Will discontinue IV fluids. ? Patient has Percocet 10 mg/325 mg every 4 hours as needed, Toradol 15 mg IV every 6 hours as needed for pain control. ? General Surgery consulted for recommendations. #HFpEF #HLD ?Patient has a history of HFpEF and HLD, holding home medication carvedilol 6.25 mg twice daily, Entresto 0.5 twice daily, spironolactone 12.5 mg daily, Jardiance 10 mg daily, atorvastatin 40 mg due to bowel rest. ?Currently holding clopidogrel 75 mg daily and aspirin 81 mg daily for postsurgical bleeding risk. DNR Clear liquid diet Ambulate as tolerated VTE: SCDs
[2025-05-05] MEDS: ONDANSETRON 4MG/2ML VIAL 4 MG IV (12:48)
[2025-05-05] MEDS: CALCIUM CARBONATE 500MG CHEWTAB 500 MG PO (13:04)
--- NOTE | 2025-05-05 14:14 | EXP.SURG.PN ---
Subjective Narrative: Patient is postoperative day #1 status post ileocecal resection. He has had his Hull catheter removed this afternoon. Pain is controlled. He does state that with clear liquids he has had some heartburn and nausea . No vomiting. Exam Data for Last 24 hours Vital signs and Labs for Last 24 Hours: Temp Pulse Resp BP Pulse Ox O2 Del Method O2 Flow Rate 98.1 F 65 16 99/56 L 95 Room Air 2 05/05/25 08:00 05/05/25 08:00 05/05/25 08:32 05/05/25 08:00 05/05/25 08:00 05/05/25 13:00 05/04/25 17:25 Laboratory Results - last 24 hr 05/04/25 12:16: Urine Color Yellow, Urine Appearance Clear, Urine pH 5.5, Ur Specific [place] >= 1.030, Urine Protein 2+, Urine Glucose (UA) 3+, Urine Ketones Trace, Urine Blood 3+, Urine Nitrate Negative, Urine Bilirubin Negative, Urine Urobilinogen 0.2, Ur Leukocyte Esterase Negative, Urine RBC 5-10, Urine WBC 5-10, Ur Squamous Epith Cells 3-5, Urine Bacteria Occassional 05/05/25 06:30: WBC 5.2 D, RBC 3.29 L, Hgb 9.6 L D, Hct 30.1 L, MCV 91.5, MCH 29.2, MCHC 31.9, RDW 13.8, Plt Count 165, MPV 9.9, Neut % (Auto) 67.6, Lymph % (Auto) 20.3, [place] % (Auto) 11.7 H, Eos % (Auto) 0.2, Baso % (Auto) 0.2, Neut # (Auto) 3.5, Lymph # (Auto) 1.1, [place] # (Auto) 0.6, Eos # (Auto) 0.0, Baso # (Auto) 0.0, Sodium 135 L, Potassium 4.7, Chloride 102, Carbon Dioxide 27, Anion Gap 10.7, BUN 18, Creatinine 0.90, Estimated Creat Clear 72, Estimated GFR 84, Est GFR ( Amer) 101, Glucose 101 H, Calcium 7.8 L, Magnesium 1.7, Total Bilirubin 0.4, AST 24, ALT 14, Alkaline Phosphatase 97, Total Protein 6.0 L D, Albumin 3.1 L D, Globulin 2.9, Albumin/Globulin Ratio 1.1 I & O for Last 24 hours: Intake & Output 05/03/25 05/04/25 05/05/25 05/06/25 11:59 11:59 11:59 11:59 Intake Total 666 / 666 4641 / 4641 Output Total 0 / 0 975 / 975 Balance 666 / 666 3666 / 3666 Weight 146 lb 14.4 oz 153 lb 7.068 oz Microbiology Reports for the Last 24 Hours: Microbiology 05/03/25 20:57 Urine,Clean Catch Urine Culture - Final NO GROWTH AFTER 48 HOURS *Routine Abdominal Exam Comments: Dressing in place and dry. Progress Note: A&P Assessment and plan (1) Volvulus: Status: Acute Assessment and plan: Limit to ice chips for now. Encourage ambulation. (2) Right lower quadrant abdominal pain: Status: Acute (3) HLD (hyperlipidemia): Status: Chronic (4) (HFpEF) heart failure with preserved ejection fraction: Status: Acute
--- NOTE | 2025-05-05 18:15 | PC.NURSE ---
Pt has c/o some discomfort to abdomen this shift. He also c/o a burning sensation and gastric upset. Pt medicated per jan. MD aware. No additional complaints. Pt states he is comfortable and without pain at this time. DSG to abdomen is C/D/I. Pt has ambulated in room. Tolerated fair. Call light within reach.
[2025-05-05] MEDS: PANTOPRAZOLE 40MG TABLET 40 MG PO (20:23)
[2025-05-06] VITALS: BP 95/53; PULSE 66; RESP 16; TEMP 37; O2SAT 90
[2025-05-06 04:00] VITALS: BP 104/57; PULSE 77; RESP 18; TEMP 36.6; O2SAT 89; BMI 20.2
--- NOTE | 2025-05-06 05:17 | PC.NURSE ---
Pt A&OX4. He has been medicated for abdominal pain once this shift. Dressing over midline incision has remained c/d/i. He has ambulated with standby assist. No complaints at this time, call light within reach.
[2025-05-06 06:30] LABS: Hematocrit 29.4 % (42.0-52.0); Hemoglobin 9.5 g/dL (14.1-18.0); Immature Granulocytes % 0.4 %; Mean Corpuscular HGB Conc 32.3 g/dL (31.8-35.4); Mean Corpuscular Hemoglobin 29.5 pg (27.0-31.2); Mean Corpuscular Volume 91.3 fl (80-94); Nucleated Red Blood Cells % 0 %; Platelet Count 165 K/mm3 (142-424); Red Blood Count 3.22 M/mm3 (4.60-6.20); Red Cell Distribution Width-SD 46.5 fL; White Blood Count 5.6 K/mm3 (4.8-10.8)
[2025-05-06 06:47] LABS: Alanine Aminotransferase 10 U/L (12-78); Albumin Level 3.3 g/dl (3.5-5.0); Albumin/Globulin Ratio 1.1 (1.1-1.8); Alkaline Phosphatase 90 U/L (38-126); Anion Gap 10.1 mEq/L (5-15); Aspartate Amino Transferase 24 U/L (17-59); Bilirubin,Total 0.5 mg/dl (0.2-1.3); Blood Urea Nitrogen 16 mg/dl (9-20); Calcium 8.6 mg/dl (8.4-10.2); Carbon Dioxide 29 mmol/L (22.0-30.0); Chloride 97 mmol/L (98-107); Creatinine Clearance Estimated 63 mL/min (50-200); Creatinine,Serum 1.00 mg/dl (0.66-1.25); Estimated Glomerular Filt Rate 74 ml/min (>60); GFR (African American) 90 ML/MIN (>60); Globulin 3.0 g/dL (1.3-3.2); Glucose 92 mg/dl (74-100); Potassium 4.1 mmoL/L (3.5-5.1); Sodium 132 mmol/L (136-145); Total Protein,Serum 6.3 g/dl (6.3-8.2)
[2025-05-06 08:00] VITALS: BP 124/67; PULSE 77; RESP 22; TEMP 37.3; O2SAT 90
--- NOTE | 2025-05-06 08:11 | EXP.SURG.PN ---
Subjective Narrative: Patient states that he feels rough . This is attributed to abdominal soreness. He has only been taking minimal pain medication. He has ambulated in the room and to the bathroom. Not passing gas. With ice chips and limited water he has hiccups and some minor heartburn . No additional nausea. Exam Data for Last 24 hours Vital signs and Labs for Last 24 Hours: Temp Pulse Resp BP Pulse Ox O2 Del Method O2 Flow Rate 97.9 F 77 18 104/57 L 89 L Room Air 2 05/06/25 04:00 05/06/25 04:00 05/06/25 04:00 05/06/25 04:00 05/06/25 04:00 05/06/25 06:45 05/04/25 17:25 Laboratory Results - last 24 hr 05/06/25 05:39: WBC 5.6, RBC 3.22 L, Hgb 9.5 L, Hct 29.4 L, MCV 91.3, MCH 29.5, MCHC 32.3, RDW 14.0, Plt Count 165, MPV 10.2, Neut % (Auto) 65.6, Lymph % (Auto) 20.5, [place] % (Auto) 12.6 H, Eos % (Auto) 0.7, Baso % (Auto) 0.2, Neut # (Auto) 3.6, Lymph # (Auto) 1.1, [place] # (Auto) 0.7, Eos # (Auto) 0.0, Baso # (Auto) 0.0, Sodium 132 L, Potassium 4.1, Chloride 97 L, Carbon Dioxide 29, Anion Gap 10.1, BUN 16, Creatinine 1.00, Estimated Creat Clear 63, Estimated GFR 74, Est GFR ( Amer) 90, Glucose 92, Calcium 8.6, Total Bilirubin 0.5, AST 24, ALT 10 L D, Alkaline Phosphatase 90, Total Protein 6.3, Albumin 3.3 L, Globulin 3.0, Albumin/Globulin Ratio 1.1 I & O for Last 24 hours: Intake & Output 05/03/25 05/04/25 05/05/25 05/06/25 11:59 11:59 11:59 11:59 Intake Total 666 / 666 4641 / 4641 1470 / 1470 Output Total 0 / 0 975 / 975 350 / 350 Balance 666 / 666 3666 / 3666 1120 / 1120 Weight 146 lb 14.4 oz 153 lb 7.068 oz 141 lb 6.4 oz Microbiology Reports for the Last 24 Hours: Microbiology 05/03/25 20:57 Urine,Clean Catch Urine Culture - Final NO GROWTH AFTER 48 HOURS *Routine Abdominal Exam Abdominal: Present tenderness Comments: Dressing dry Progress Note: A&P Assessment and plan (1) Volvulus: Status: Acute (2) Right lower quadrant abdominal pain: Status: Acute (3) HLD (hyperlipidemia): Status: Chronic (4) (HFpEF) heart failure with preserved ejection fraction: Status: Acute Assessment and Plan Assessment and Plan for All Diagnoses:: Ambulate. Continue to limit to ice chips and sips due to ileus.
[2025-05-06] MEDS: AZELASTINE NASAL SPRAY 30ML BOTTLE NS ×2 (09:15→20:47)
--- NOTE | 2025-05-06 10:26 | P.PN_ITS ---
<Statement entered by Lg Weller MD - 05/06/25 18:47> Rounded on patient after nurse practitioner. Personally examined and interviewed patient. Agree with exam findings and care plan as documented. Subjective *Date: 05/06/25 *Time: 11:50 Interval history: Patient sitting up in bed this morning. Drinking water, family at bedside. He is having some abdominal tenderness, to be expected. Dressing remains clean dry and intact. Patient is in good spirits, states he has been ambulating every 1-2 hours in his room or the arguelles. Denies passing flatus or BM. Bowel sounds remain hypoactive but present. Medical Exam Vital signs and Labs for Last 24 Hours: Vital Signs Temp Pulse Resp BP Pulse Ox O2 Del Method 05/06/25 09:00 Room Air 05/06/25 08:00 Room Air 05/06/25 08:00 99.1 F 77 22 124/67 90 L Room Air 05/06/25 06:45 Room Air 05/06/25 05:00 Room Air 05/06/25 04:00 97.9 F 77 18 104/57 L 89 L Room Air 05/06/25 03:00 Room Air 05/06/25 01:00 Room Air 05/06/25 00:00 98.6 F 66 16 95/53 L 90 L Room Air 05/05/25 23:00 Room Air 05/05/25 21:00 Room Air 05/05/25 20:00 Room Air 05/05/25 19:21 98.0 F 67 20 109/57 L 91 L Room Air 05/05/25 18:41 Room Air 05/05/25 17:00 Room Air 05/05/25 15:52 97.9 F 66 16 96/51 L 92 L Room Air 05/05/25 15:00 Room Air 05/05/25 13:00 Room Air 05/05/25 12:00 98 F 66 16 103/60 L 96 05/05/25 11:00 Room Air Intake and Output 05/05/25 05/06/25 05/06/25 23:59 07:59 15:59 Intake Total 1260 / 4291 50 / 50 Output Total 0 / 525 350 / 800 450 / 800 Balance 1260 / 3766 -300 / -750 -450 / -750 Intake: Intake, Oral Amount 360 / 1410 50 / 50 Intake, Total IV Amount 900 / 2881 Lactated Ringers 1000ML 1,000 900 / 2417 ml @ 100 mls/hr IV .Q10H [facility] Rx #:[id number] Output: Output, Urine Amount 0 / 525 350 / 800 450 / 800 Other: Number of Unmeasured Voids 1 Weight 64.138 kg Patient Weight 05/06/25 23:59 Weight 64.138 kg Laboratory Results - last 24 hr 05/06/25 05:39: WBC 5.6, RBC 3.22 L, Hgb 9.5 L, Hct 29.4 L, MCV 91.3, MCH 29.5, MCHC 32.3, RDW 14.0, Plt Count 165, MPV 10.2, Neut % (Auto) 65.6, Lymph % (Auto) 20.5, [place] % (Auto) 12.6 H, Eos % (Auto) 0.7, Baso % (Auto) 0.2, Neut # (Auto) 3.6, Lymph # (Auto) 1.1, [place] # (Auto) 0.7, Eos # (Auto) 0.0, Baso # (Auto) 0.0, Sodium 132 L, Potassium 4.1, Chloride 97 L, Carbon Dioxide 29, Anion Gap 10.1, BUN 16, Creatinine 1.00, Estimated Creat Clear 63, Estimated GFR 74, Est GFR ( Amer) 90, Glucose 92, Calcium 8.6, Total Bilirubin 0.5, AST 24, ALT 10 L D, Alkaline Phosphatase 90, Total Protein 6.3, Albumin 3.3 L, Globulin 3.0, Albumin/Globulin Ratio 1.1 I & O for Labs for Last 24 Hours: Intake & Output 05/03/25 05/04/25 05/05/25 05/06/25 23:59 23:59 23:59 23:59 Intake Total 2486 / 3586 4241 / 4291 50 / 50 Output Total 450 / 450 525 / 525 800 / 800 Balance 2036 / 3136 3716 / 3766 -750 / -750 Weight 62.596 kg 66.633 kg 69.6 kg 64.138 kg Microbiology Reports for the Last 24 Hours: Microbiology 05/03/25 20:57 Urine,Clean Catch Urine Culture - Final NO GROWTH AFTER 48 HOURS Constitutional: Present no acute distress and thin Head: Present atraumatic Eyes: Present as per HPI ENT: Present normal exam Neck: Present normal inspection and full ROM Respiratory: Present CTA bilaterally, able to speak in complete sentences and symmetric chest movement Cardiac: Present Reg Rate and Rhythm GI: Present soft, tenderness and hypoactive bowel sounds; Absent distention Rectal (male): Present deferred (male): Present deferred Extremities: Present normal inspection and full ROM Skin: Present intact and dry Neuro: Present alert, awake and oriented x 3 Assessment and Plan *Assessment and plan (1) Volvulus: Status: Acute Category: Medical Code(s): K56.2 - Volvulus (2) Status post exploratory laparotomy: Status: Acute Category: Surgical Code(s): Z98.890 - Other specified postprocedural states (3) Right lower quadrant abdominal pain: Status: Acute Category: Medical Code(s): R10.31 - Right lower quadrant pain (4) (HFpEF) heart failure with preserved ejection fraction: Status: Acute Category: Medical Code(s): I50.30 - Unspecified diastolic (congestive) heart failure Plan Mr. Quinones is a 70-year-old male who was admitted to the hospital with a vo lvulus versus bowel obstruction. He was taken to surgery 05/04 and a exploratory laparotomy with ileocecectomy was performed. Patient was then admitted to the hospital for further monitoring. Patient is postop day 2, states he is feeling well. He is having some abdominal tenderness and pain with movement. He is currently on ice chips and sips of water. He states that his abdominal pain is well-controlled on the pain medication regimen. He is not passing flatus and has not had a bowel movement. Bowel sounds are hypoactive in all 4 quadrants. #Volvulus #Status post exploratory laparotomy with ileocecectomy #Right lower quadrant abdominal pain ? Patient is postsurgical day 2. Dressing on abdomen clean dry and intact. Patient complains of minimal abdominal pain at rest, moderate with movement. Tolerating sips and chips well. Lab work unremarkable, hemoglobin 9.5 down from 12.2, likely related to surgical procedure. Patient urinating without problem. Patient ambulated with staff in room and in halls yesterday without issues. Will continue increased ambulation today. ? Patient has Percocet 10 mg/325 mg every 4 hours as needed, Toradol 15 mg IV every 6 hours as needed for pain control. ? General Surgery consulted for recommendations. ?CBC, CMP ordered for a.m. #HFpEF #HLD ?Patient has a history of HFpEF and HLD, holding home medication carvedilol 6.25 mg twice daily, Entresto 0.5 twice daily, spironolactone 12.5 mg daily, Jardiance 10 mg daily, atorvastatin 40 mg due to bowel rest. ?Currently holding clopidogrel 75 mg daily and aspirin 81 mg daily for postsurgical bleeding risk. DNR/DNI Sips and chips SCDs and ambulation for VTE General Surgery consult
[2025-05-06 12:00] VITALS: BP 115/70; PULSE 87; RESP 20; TEMP 37.1; O2SAT 90
[2025-05-06 14:30] VITALS: BMI 20.2
--- NOTE | 2025-05-06 15:59 | PC.NURSE ---
AOX4, HAS DENIED PAIN SO FAR THIS SHIFT. HAS EXPRESSED INTEREST IN ADVANCING DIET.
[2025-05-06 16:00] VITALS: BP 119/71; PULSE 86; RESP 18; TEMP 37; O2SAT 86
--- NOTE | 2025-05-06 18:26 | PC.NURSE ---
Pt ambulated 200ft in hallway on room air. O2 stayed 85 to 86 percent.
[2025-05-06 20:00] VITALS: BP 123/72; PULSE 83; RESP 18; TEMP 36.9; O2SAT 93
[2025-05-06] MEDS: PANTOPRAZOLE 40MG TABLET 40 MG PO (20:47)
[2025-05-07] VITALS (7 sets, daily range): BP systolic 110–126; BP diastolic 63–73; PULSE 62–81; RESP 15–18; TEMP 36.7–36.8; O2SAT 90–98; BMI 20.8
--- NOTE | 2025-05-07 04:25 | PC.NURSE ---
Pt A&O x4. Pt is on 2L/NC. Pt lung sounds diminished. Pt has not c/o pain so far this shift. Pt's abdominal incision/dressing is clean, dry, and intact. Pt wore his SCD's for 1 hour, and then refused to wear them. Pt educated on importance of VTE prophylaxis. Pt remains NPO w/ ice chips. No further concerns voiced at this time. Pt resting in bed w/ call light in reach. POC ongoing.
[2025-05-07 06:41] LABS: Hematocrit 30.9 % (42.0-52.0); Hemoglobin 10.0 g/dL (14.1-18.0); Immature Granulocytes % 0.3 %; Mean Corpuscular HGB Conc 32.4 g/dL (31.8-35.4); Mean Corpuscular Hemoglobin 29.1 pg (27.0-31.2); Mean Corpuscular Volume 89.8 fl (80-94); Nucleated Red Blood Cells % 0 %; Platelet Count 186 K/mm3 (142-424); Red Blood Count 3.44 M/mm3 (4.60-6.20); Red Cell Distribution Width-SD 44.2 fL; White Blood Count 5.9 K/mm3 (4.8-10.8)
[2025-05-07 07:01] LABS: Alanine Aminotransferase 10 U/L (12-78); Albumin Level 3.4 g/dl (3.5-5.0); Albumin/Globulin Ratio 1.1 (1.1-1.8); Alkaline Phosphatase 100 U/L (38-126); Anion Gap 10.7 mEq/L (5-15); Aspartate Amino Transferase 27 U/L (17-59); Bilirubin,Total 0.6 mg/dl (0.2-1.3); Blood Urea Nitrogen 14 mg/dl (9-20); Calcium 7.9 mg/dl (8.4-10.2); Carbon Dioxide 28 mmol/L (22.0-30.0); Chloride 97 mmol/L (98-107); Creatinine Clearance Estimated 65 mL/min (50-200); Creatinine,Serum 0.90 mg/dl (0.66-1.25); Estimated Glomerular Filt Rate 84 ml/min (>60); GFR (African American) 101 ML/MIN (>60); Globulin 3.1 g/dL (1.3-3.2); Glucose 63 mg/dl (74-100); Potassium 3.7 mmoL/L (3.5-5.1); Sodium 132 mmol/L (136-145); Total Protein,Serum 6.5 g/dl (6.3-8.2)
[2025-05-07] MEDS: AZELASTINE NASAL SPRAY 30ML BOTTLE NS ×2 (08:45→20:46)
--- NOTE | 2025-05-07 09:36 | EXP.SURG.PN ---
Subjective Narrative: Patient states that he feels okay without significant complaints. No nausea. Pain controlled. Still not passing flatus but he states that he feels the urge. Exam Data for Last 24 hours Vital signs and Labs for Last 24 Hours: Temp Pulse Resp BP Pulse Ox O2 Del Method O2 Flow Rate 98.2 F 71 16 123/73 93 L Room Air 2 05/07/25 08:00 05/07/25 08:00 05/07/25 08:00 05/07/25 08:00 05/07/25 09:19 05/07/25 09:19 05/07/25 08:00 Laboratory Results - last 24 hr 05/07/25 05:53: WBC 5.9, RBC 3.44 L, Hgb 10.0 L, Hct 30.9 L, MCV 89.8, MCH 29.1, MCHC 32.4, RDW 13.6, Plt Count 186, MPV 10.0, Neut % (Auto) 67.0, Lymph % (Auto) 18.7, [place] % (Auto) 12.6 H, Eos % (Auto) 1.2, Baso % (Auto) 0.2, Neut # (Auto) 4.0, Lymph # (Auto) 1.1, [place] # (Auto) 0.8, Eos # (Auto) 0.1, Baso # (Auto) 0.0, Sodium 132 L, Potassium 3.7, Chloride 97 L, Carbon Dioxide 28, Anion Gap 10.7, BUN 14, Creatinine 0.90, Estimated Creat Clear 65, Estimated GFR 84, Est GFR ( Amer) 101, Glucose 63 L, Calcium 7.9 L, Total Bilirubin 0.6, AST 27, ALT 10 L, Alkaline Phosphatase 100, Total Protein 6.5, Albumin 3.4 L, Globulin 3.1, Albumin/Globulin Ratio 1.1 I & O for Last 24 hours: Intake & Output 05/04/25 05/05/25 05/06/25 05/07/25 11:59 11:59 11:59 11:59 Intake Total 666 / 666 4641 / 4641 1470 / 1470 Output Total 0 / 0 975 / 975 800 / 950 1050 / 1050 Balance 666 / 666 3666 / 3666 670 / 520 -1050 / -1050 Weight 146 lb 14.4 oz 153 lb 7.068 oz 141 lb 6.4 oz 145 lb 8 oz *Routine Abdominal Exam Abdominal: Present soft Comments: Incision clean and intact. Progress Note: A&P Assessment and plan (1) Volvulus: Status: Acute (2) Status post exploratory laparotomy: Status: Acute (3) Right lower quadrant abdominal pain: Status: Acute (4) (HFpEF) heart failure with preserved ejection fraction: Status: Acute Assessment and Plan Assessment and Plan for All Diagnoses:: Try some sips of clear liquids. Awaiting return of bowel function.
--- NOTE | 2025-05-07 10:23 | P.PN_ITS ---
Subjective *Date: 05/07/25 *Time: 13:31 Interval history: Patient up in room ambulating. Patient states he feels well today, slight abdominal tenderness. He has still not passed flatus, but states that he feels like he could. Discussed continuing ambulation, chewing gum. Per general morgan rgery will advance to clears. Abdomen soft, bowel sounds hypoactive. Medical Exam Vital signs and Labs for Last 24 Hours: Vital Signs Temp Pulse Resp BP Pulse Ox O2 Del Method O2 Flow Rate 05/07/25 09:19 93 L Room Air 05/07/25 09:00 Room Air 05/07/25 08:00 98 Nasal Cannula 2 05/07/25 08:00 98.2 F 71 16 123/73 98 Nasal Cannula 2 05/07/25 06:49 Nasal Cannula 2 05/07/25 05:00 Nasal Cannula 2 05/07/25 03:51 98.1 F 77 15 126/73 98 Nasal Cannula 2 05/07/25 03:00 Nasal Cannula 2 05/07/25 01:00 Nasal Cannula 2 05/07/25 00:00 98.2 F 81 16 117/67 92 L Room Air 05/06/25 23:00 Nasal Cannula 2 05/06/25 21:00 Nasal Cannula 2 05/06/25 20:00 Nasal Cannula 2 05/06/25 20:00 98.5 F 83 18 123/72 93 L Nasal Cannula 2 05/06/25 19:00 Nasal Cannula 2 05/06/25 17:00 Room Air 05/06/25 16:00 98.6 F 86 18 119/71 86 L Room Air 05/06/25 15:00 Room Air 05/06/25 13:00 Room Air 05/06/25 12:00 98.8 F 87 20 115/70 90 L Room Air 05/06/25 11:00 Room Air Intake and Output 05/06/25 05/07/25 05/07/25 23:59 07:59 15:59 Output Total 450 / 1600 250 / 550 300 / 550 Balance -450 / -1550 -250 / -550 -300 / -550 Output: Output, Urine Amount 450 / 1600 250 / 550 300 / 550 Other: Weight 65.998 kg Patient Weight 05/07/25 23:59 Weight 65.998 kg Laboratory Results - last 24 hr 05/07/25 05:53: WBC 5.9, RBC 3.44 L, Hgb 10.0 L, Hct 30.9 L, MCV 89.8, MCH 29.1, MCHC 32.4, RDW 13.6, Plt Count 186, MPV 10.0, Neut % (Auto) 67.0, Lymph % (Auto) 18.7, [place] % (Auto) 12.6 H, Eos % (Auto) 1.2, Baso % (Auto) 0.2, Neut # (Auto) 4.0, Lymph # (Auto) 1.1, [place] # (Auto) 0.8, Eos # (Auto) 0.1, Baso # (Auto) 0.0, Sodium 132 L, Potassium 3.7, Chloride 97 L, Carbon Dioxide 28, Anion Gap 10.7, BUN 14, Creatinine 0.90, Estimated Creat Clear 65, Estimated GFR 84, Est GFR ( Amer) 101, Glucose 63 L, Calcium 7.9 L, Total Bilirubin 0.6, AST 27, ALT 10 L, Alkaline Phosphatase 100, Total Protein 6.5, Albumin 3.4 L, Globulin 3.1, Albumin/Globulin Ratio 1.1 I & O for Labs for Last 24 Hours: Intake & Output 05/04/25 05/05/25 05/06/25 05/07/25 23:59 23:59 23:59 23:59 Intake Total 2486 / 3586 4241 / 4291 50 / 50 Output Total 450 / 450 525 / 525 1600 / 1600 550 / 550 Balance 2036 / 3136 3716 / 3766 -1550 / -1550 -550 / -550 Weight 66.633 kg 69.6 kg 64.138 kg 65.998 kg Constitutional: Present no acute distress and thin Head: Present atraumatic Eyes: Present as per HPI ENT: Present normal exam Neck: Present normal inspection and full ROM Respiratory: Present CTA bilaterally, able to speak in complete sentences and symmetric chest movement Cardiac: Present Reg Rate and Rhythm GI: Present soft, tenderness and hypoactive bowel sounds; Absent distention Rectal (male): Present deferred (male): Present deferred Extremities: Present normal inspection and full ROM Skin: Present intact and dry Neuro: Present alert, awake and oriented x 3 Assessment and Plan *Assessment and plan (1) Volvulus: Status: Acute Category: Medical Code(s): K56.2 - Volvulus (2) Status post exploratory laparotomy: Status: Acute Category: Surgical Code(s): Z98.890 - Other specified postprocedural states (3) Right lower quadrant abdominal pain: Status: Acute Category: Medical Code(s): R10.31 - Right lower quadrant pain (4) (HFpEF) heart failure with preserved ejection fraction: Status: Acute Category: Medical Code(s): I50.30 - Unspecified diastolic (congestive) heart failure Plan Mr. Quinones is a 70-year-old male who was admitted to the hospital with a volvulus versus bowel obstruction. He was taken to surgery 05/04 and a exploratory laparotomy with ileocecectomy was performed. Patient was then adm itted to the hospital for further monitoring. Patient is postop day 2, states he is feeling well. He is having some abdominal tenderness and pain with movement. He is currently on ice chips and sips of water, advancing today to clear liquid diet. He states that his abdominal pain is well-controlled on the pain medication regimen. He is not passing flatus and has not had a bowel movement. Bowel sounds are hypoactive in all 4 quadrants. #Volvulus #Status post exploratory laparotomy with ileocecectomy #Right lower quadrant abdominal pain ? Patient is postsurgical day 3. Dressing removed from abdomen this morning, midline incision intact with gaston in place. Patient complains of minimal abdominal pain at rest, moderate with movement. Tolerating sips and chips well, per general surgery will advance diet to clears. Lab work unremarkable, hemoglobin stable at 10.0, likely related to surgical procedure. Patient urinating without problem. Patient ambulated with staff in room and in halls yesterday without issues. Will continue increased ambulation today. ? Patient has Percocet 10 mg/325 mg every 4 hours as needed, Toradol 15 mg IV every 6 hours as needed for pain control. ? General Surgery consulted for recommendations. ? CBC, CMP ordered for a.m. #HFpEF #HLD ?Patient has a history of HFpEF and HLD, holding home medication carvedilol 6.25 mg twice daily, Entresto 0.5 twice daily, spironolactone 12.5 mg daily, Jardiance 10 mg daily, atorvastatin 40 mg due to bowel rest. ?Currently holding clopidogrel 75 mg daily and aspirin 81 mg daily for postsurgical bleeding risk. DNR/DNI Sips and chips SCDs and ambulation for VTE General Surgery consult
--- NOTE | 2025-05-07 17:25 | PC.NURSE ---
pt is A&Ox4. he took his oxygen off this morning so we checked his oxygen saturation and it was low 90s so we left it off. pt has been up walking around his room today and is independent. pts diet has been moved to clears to see how he does. he refused his carvedilol and his lovenox shot today. call light is within reach.
[2025-05-07] MEDS: PANTOPRAZOLE 40MG TABLET 40 MG PO (20:46)
[2025-05-08] VITALS: BP 111/64; PULSE 67; RESP 18; TEMP 36.5; O2SAT 95
[2025-05-08 04:00] VITALS: BP 117/67; PULSE 75; RESP 18; TEMP 36.7; O2SAT 94; BMI 20.5
--- NOTE | 2025-05-08 05:16 | PC.NURSE ---
Addendum entered by Blank Arizmendi RN 05/08/25 05:53: NPO at midnight. Original Note: v/s, ox4, RA. No acute events to report. Plan of care ongoing.
[2025-05-08 08:00] VITALS: BP 120/76; PULSE 70; RESP 18; TEMP 36.6; O2SAT 94
[2025-05-08] MEDS: AZELASTINE NASAL SPRAY 30ML BOTTLE NS (08:10)
--- NOTE | 2025-05-08 08:27 | EXP.SURG.PN ---
Subjective Narrative: Patient took some clear liquids without issue. He states that he began passing lots of gas yesterday evening. Has not had a bowel movement. No nausea. He is very anxious to go home. Exam Data for Last 24 hours Vital signs and Labs for Last 24 Hours: Temp Pulse Resp BP Pulse Ox O2 Del Method O2 Flow Rate 98.0 F 75 18 117/67 94 L Room Air 2 05/08/25 04:00 05/08/25 04:00 05/08/25 04:00 05/08/25 04:00 05/08/25 04:00 05/08/25 06:58 05/07/25 08:00 I & O for Last 24 hours: Intake & Output 05/05/25 05/06/25 05/07/25 05/08/25 11:59 11:59 11:59 11:59 Intake Total 4641 / 4641 1470 / 1470 120 / 120 Output Total 975 / 975 800 / 950 1350 / 1350 Balance 3666 / 3666 670 / 520 -1350 / -1350 120 / 120 Weight 153 lb 7.068 oz 141 lb 6.4 oz 145 lb 8 oz 143 lb *Routine Abdominal Exam Abdominal: Present soft; Absent tenderness Progress Note: A&P Assessment and plan (1) Volvulus: Status: Acute (2) Status post exploratory laparotomy: Status: Acute (3) Right lower quadrant abdominal pain: Status: Acute (4) (HFpEF) heart failure with preserved ejection fraction: Status: Acute Assessment and Plan Assessment and Plan for All Diagnoses:: Full liquids today. If tolerating may be able to discharge this afternoon.
[2025-05-08 12:00] VITALS: BP 111/67; PULSE 68; RESP 16; TEMP 36.8; O2SAT 97
--- NOTE | 2025-05-08 14:30 | P.DS_ITS ---
<Statement entered by Lg Weller MD - 05/08/25 15:51> Rounded on patient after nurse practitioner. Personally examined and interviewed patient. Agree with exam findings and care plan as documented. General Admission date:: 05/04/25 Discharge date: 05/08/25 HPI HPI HPI: Mr. Quinones is a 70 male presents ER with complaints of abdominal pain. Patient has a past medical history of COPD, heart failure, hyperlipidemia, and coronary artery disease. Patient states he started to experience right lower quadrant pain about dinnertime. He states he had some nausea. He reports the pain felt like trapped gas/cramping. He reports this pain 7 out of 10. Reports nothing makes it worse. He reports meds that he got in the ER made it better. He reports normal bowel movements. Patient denies fever/chills, cough, congestion, runny nose, dyspnea, chest pain, vomiting, diarrhea, constipation, headache, lightheadedness, dizziness, or syncope. Mr. Venkata Quinones is a 70-year-old male with a history of coronary artery disease status post stents, COPD, pacemaker for bradycardia, and systolic heart failure (last EF 55%) who presented to the emergency room overnight with right lower quadrant abdominal pain. The pain came on after supper, and was cramping in nature. It has been sometimes severe, as much as 10 out of 10. Physical exam was notable for a bulge in the right lower quadrant that was obvious from inspection alone and this thin patient. In the emergency room, a CT scan showed dilated cecum and was read as possible partial colon obstruction or ileus. I reviewed the CT scan around midnight with the ER physician, and we looked at the images together. We were concerned there were some features of a cecal volvulus or bascule, but the radiologist did not think it met all criteria. His vital signs and labs were normal, and a lactate was normal. His pain was actually improving, and so he was stable for observation overnight. This morning, his vital signs continue to be normal, his labs are normal, his lactate is normal. He reports that his pain has started to increase again this morning. Last bowel movement was yesterday, and he does not recall the last time he passed flatus. In June 2024, he presented to this hospital with right lower quadrant pain and was found to have perforated appendicitis. At that time, he had a lactic acidosis, and was unstable. He was transferred to [facility] for laparoscopic appendectomy. Hospital Course Hospital Course Hospital Course: Mr. Quinones is a 70-year-old male who was admitted to the hospital with a volvulus versus bowel obstruction. He was taken to surgery 05/04 and a exploratory laparotomy with ileocecectomy was performed. Patient was then admitted to the hospital for further monitoring. Patient is postop day 4, states he is feeling well and is ready to go home. He is having some generali zed abdominal tenderness and pain with movement. He has tolerated a full liquid diet for breakfast and for lunch. He states that his abdominal pain is well- controlled on the pain medication regimen. He has began passing flatus, has not had a bowel movement. Bowel sounds are normoactive in all 4 quadrants. #Volvulus #Status post exploratory laparotomy with ileocecectomy #Right lower quadrant abdominal pain ? Incision open to air, intact with gaston in place. Patient complains of minimal abdominal pain at rest, moderate with movement. Tolerating full liquid diet without issues. Lab work unremarkable, hemoglobin stable at 10.0, likely related to surgical procedure. Patient urinating without problem. Patient ambulated independently in room and in halls yesterday without issues. ? Patient will be discharged with Josephine 5/325 mg every 6 hours as needed for pain. ? Consulted with general surgery, they are agreeable that patient can be discharged today with close outpatient follow-up. Patient will follow-up Monday in office with Dr. Alcantara. #HFpEF #HLD ?Patient has a history of HFpEF and HLD, holding home medication carvedilol 6.25 mg twice daily, Entresto 0.5 twice daily, spironolactone 12.5 mg daily due to patient being normotensive throughout admission. Discussed with patient the need to follow-up with PCP for adjusted cardiac regimen. Continue atorvastatin 40 mg and Jardiance 10 mg. ? Per general surgery continue Plavix 75 mg and aspirin 81 mg. Total time spent on discharge 34 minutes in counseling, documentation, chart review, and direct care with patient. Exam Data for Last 24 hours Vital signs and Labs for Last 24 Hours: Temp Pulse Resp BP Pulse Ox O2 Del Method O2 Flow Rate 98.3 F 68 16 111/67 97 Room Air 2 05/08/25 12:05/08/25 12:05/08/25 12:00 05/08/25 12:00 05/08/25 12:00 05/08/25 13:05 05/07/25 08:00 I & O for Last 24 hours: Intake & Output 05/05/25 05/06/25 05/07/25 05/08/25 23:59 23:59 23:59 23:59 Intake Total 4241 / 4291 50 / 50 480 / 480 Output Total 525 / 525 1600 / 1600 550 / 550 125 / 125 Balance 3716 / 3766 -1550 / -1550 -550 / -430 355 / 355 Weight 69.6 kg 64.138 kg 65.998 kg 64.864 kg Constitutional Constitutional: no acute distress, thin and cooperative *Routine HEENT Exam Head: Present normocephalic Eye: Present EOMI and PERRL ENT: Present mucous membranes moist *Routine Neck Exam Neck: Present supple and full ROM; Absent JVD *Routine Respiratory Exam Respiratory: Present CTA bilaterally, normal respiratory effort, able to speak in complete sentences and symmetric chest movement *Routine Cardiovascular Exam Cardiovascular: Present RRR *Routine Abdominal Exam Abdominal: Present soft, normoactive bowel sounds and tenderness; Absent distended, guarding or rigid *Routine Rectal Exam Patient deferred: visual exam *Routine Exam Patient deferred: penile exam *Routine Extremities Exam Extremities: Present normal capillary refill; Absent edema *Routine Skin Exam Skin: Present intact and dry *Routine Neurological Exam Neurological: Present alert and oriented X3 DS: Diagnosis Discharge Diagnosis (1) Volvulus: Status: Acute Code(s): K56.2 - Volvulus (2) Status post exploratory laparotomy: Status: Acute Code(s): Z98.890 - Other specified postprocedural states (3) Right lower quadrant abdominal pain: Status: Acute Code(s): R10.31 - Right lower quadrant pain (4) (HFpEF) heart failure with preserved ejection fraction: Status: Acute Code(s): I50.30 - Unspecified diastolic (congestive) heart failure Meds Home Medications and Allergies Home Medications ?Medication ?Instructions ?Recorded ?Confirmed ?Type aspirin 81 mg tablet,delayed 81 mg PO DAILY 03/28/22 0 05/04/25 History release (Adult Aspirin Regimen) sacubitril 24 mg-valsartan 26 mg 0.5 tab PO BID #90 ta bs 08/22/24 05/04/25 Rx tablet (Entresto) Held on 05/08/25. Instructions: f/u with pcp spironolactone 25 mg tablet 12.5 mg (1/2 x 25 mg) PO D AILY #30 09/24/24 05/04/25 Rx (Aldactone) tabs Held on 05/08/25. Instructions: f/u with pcp empagliflozin 10 mg tablet 10 mg PO DAILY #90 tabs 05/04/25 Rx (Jardiance) azelastine 137 mcg (0.1 %) nasal 2 spray intranasal BI D #60 mL 03/17/25 05/04/25 Rx spray ferrous sulfate 325 mg (65 mg 325 mg PO DAILY #30 tabs 04/18/25 05/04/25 Rx iron) tablet Held on 05/08/25. Instructions: f/u with pcp atorvastatin 40 mg tablet 40 mg PO HS 05/04/25 5 History carvedilol 6.25 mg tablet 6.25 mg PO BID 05/04/2504/07 History Held on 05/08/25. Instructions: f/u with pcp clopidogrel 75 mg tablet 75 mg PO DAILY 05/04/2504/07 History hydrocodone 5 mg-acetaminophen 325 1 tab PO Q6HP PRN M oderate To 05/08/25 Rx mg tablet Severe Pain (4-10) 3 days #1 2 tabs pantoprazole 40 mg tablet,delayed 40 mg PO HS 30 days #30 tabs 05/08/25 Rx release New Prescriptions to Start Prescriptions: hydrocodone-acetaminophen Court Multani pantoprazole Court Multani Allergies Allergy/AdvReac Type Severity Reaction Status Date / Time No Known Drug Allergies Allergy Unknown Verified 03/17/25 08:38 Discharge Plan Disposition Patient Disposition: Home, Self-Care Condition: Good Follow up Plan Follow up with: Hiren Alcantara MD [Staff Physician, General Surgery] - Enter time for follow up Referral Note: Monday Miguel Quiñones MD [Primary Care Provider, Medical] - Enter time for follow up Prescriptions/Medication Reconciliation: New hydrocodone-acetaminophen 5-325 mg Tablet 1 tab PO Q6HP PRN (Reason: Moderate To Severe Pain (4-10)) 3 Days Qty: 12 0RF pantoprazole 40 mg Tablet,Delayed Release (Dr/Ec) 40 mg PO HS 30 Days Qty: 30 0RF Continued aspirin [Adult Aspirin Regimen] 81 mg tablet,delayed release (DR/EC) 81 mg PO DAILY Jardiance 10 mg tablet 10 mg PO DAILY Qty: 90 3RF azelastine 137 mcg (0.1 %) spray,non-aerosol 2 spray intranasal BID Qty: 60 2RF Rx Instructions: administer into each nostril clopidogrel 75 mg tablet 75 mg PO DAILY Rx Instructions: Take 1 tablet by mouth once daily for 90 days atorvastatin 40 mg tablet 40 mg PO HS Patient Comments: TAKE 1 TABLET BY MOUTH ONCE DAILY FOR CHOLESTEROL Held Entresto 24-26 mg tablet 0.5 tab PO BID Qty: 90 3RF Hold Instructions: f/u with pcp spironolactone [Aldactone] 25 mg tablet 12.5 mg PO DAILY Qty: 30 5RF Hold Instructions: f/u with pcp ferrous sulfate 325 mg (65 mg iron) tablet 325 mg PO DAILY Qty: 30 0RF Hold Instructions: f/u with pcp carvedilol 6.25 mg tablet 6.25 mg PO BID Hold Instructions: f/u with pcp Rx Instructions: Take 1 tablet by mouth twice daily Problem Reconciliation Problems Reviewed?: Yes Patient Discharge Instructions ACTIVITY: No heavy lifting DIET: advance to your usual diet Patient Instructions: DI for Mechanical Bowel Obstruction, DI for Exploratory Laparotomy, DI for Laparoscopy, DI for Surgical Site Infection, Catheter-Associated Urinary Tract Infection, Stop Light Heart Failure Print Language: Vietnamese Providers Primary Care Provider: Miguel Quiñones Admit Provider: Lg Weller Attending Provider: Lg Weller
== END 2025-05-08 16:03 | disposition home or self-care (01) | DRG 330 ==
LOC: ER 05-04 00:10 → 2ND 05-04 00:19
PROVIDERS: Emergency Medicine; Nurse Practitioner Family; Surgery; Admitting Provider Internal Medicine Adolescent Medicine; Emergency Provider Emergency Medicine; PCP Internal Medicine; Visit Provider Internal Medicine Adolescent Medicine
PROC: 0DJD4ZZ Inspection of Lower Intestinal Tract, Percutaneous Endoscopic Approach (ICD-10-PCS; principal; 2025-05-04 12:00)
DX: K56.2 Volvulus (principal); C18.0 Malignant neoplasm of cecum; I50.22 Chronic systolic (congestive) heart failure; I25.10 Atherosclerotic heart disease of native coronary artery without angina pectoris; E78.2 Mixed hyperlipidemia; D64.9 Anemia, unspecified; J44.9 Chronic obstructive pulmonary disease, unspecified; Z79.82 Long term (current) use of aspirin; Z66 Do not resuscitate; Z79.899 Other long term (current) drug therapy; Z79.02 Long term (current) use of antithrombotics/antiplatelets; Z95.5 Presence of coronary angioplasty implant and graft
CPT/HCPCS: 36415; 51702; 74018; 74177; 80048; 80053; 81001; 83605; 83690; 83735; 85025; 87086; 88309; 88341; 88342; 93005; J0131; J0665; J0666; J0690; J1100; J1171; J1885; J2003; J2270; J2405; J2704; J3010; J7120; Q9967

== ENCOUNTER 2025-05-16 09:01 | Outpatient (RCR) | payer MEDICARE, OTHER, SELFPAY | END 2025-05-16 09:20 | LOC: INF 09:01 | PROVIDERS: PCP Internal Medicine; Visit Provider Surgery | DX: C18.9 Malignant neoplasm of colon, unspecified (principal) | CPT/HCPCS: G0463 ==

== ENCOUNTER 2025-05-22 14:40 | Outpatient (CLI) | payer MEDICARE, OTHER, SELFPAY ==
--- OUTSIDE RECORDS SUMMARY | 2025-05-22 15:06 | XMS_ITS | Clinical Summary ---
Author Organization Healthcare Address [address] [place] [address] Care Team Providers Care Etiquette Coach Name Role Phone Miguel Quiñones MD Primary Care Provider [phone] Allergies No known active allergies Medications methocarbamol [...] [facility]-Abdominal Aortic Aneurys m (AAA) Screening 01/22/2021 [id number] Vaccine (1 - 20 24-25 season) 2024 [facility]-Influenza Vaccine (#1) 2025 [facility]-Hepatitis C Screening Completed 06/13/2024 HPV [...] Antibody Negative Negative 06/13/2024 12:13 PM EDT [facility] Blood Venous blood specimen / Unknown Venipuncture / Unknown 06/13/2024 11:00 AM EDT 06/13/2024 11:15 AM EDT [facility] BLOOD ORDERABLES Chanelle lorenzo Result Performing Organization Address City/State/[facility] Co de Phone Number [facility] [address] [place] [phone] from Last 3 Months or Most Recently Relevant to Health Maintenance Insurance MEDICARE [facility] Advance Directives * Full Code (Latest Code Status on File) Date Activated Date Inactivated Comments 06/13/2024 4:48 PM 06/15/2024 4:41 PM Question Answer Comments Patient has decision-making capacity? Yes Care Teams Etiquette Coach Relationship Specialty Start Date End Date Miguel Quiñones MD [address] [place] [address] [address] [place] [address] PCP - General 03/19/21
[2025-05-22 15:51] LABS: Alanine Aminotransferase 14 U/L (12-78); Albumin Level 4.3 g/dl (3.5-5.0); Albumin/Globulin Ratio 1.3 (1.1-1.8); Alkaline Phosphatase 98 U/L (38-126); Anion Gap 16.4 mEq/L (5-15); Aspartate Amino Transferase 22 U/L (17-59); Bilirubin,Total 0.4 mg/dl (0.2-1.3); Blood Urea Nitrogen 19 mg/dl (9-20); Calcium 9.6 mg/dl (8.4-10.2); Carbon Dioxide 27 mmol/L (22.0-30.0); Chloride 101 mmol/L (98-107); Creatinine,Serum 1.00 mg/dl (0.66-1.25); Estimated Glomerular Filt Rate 74 ml/min (>60); GFR (African American) 90 ML/MIN (>60); Globulin 3.4 g/dL (1.3-3.2); Glucose 94 mg/dl (74-100); Potassium 4.4 mmoL/L (3.5-5.1); Sodium 140 mmol/L (136-145); Total Protein,Serum 7.7 g/dl (6.3-8.2)
== END 2025-05-22 23:59 | disposition home or self-care (01) ==
LOC: LAB 14:41
PROVIDERS: PCP Internal Medicine; Visit Provider Internal Medicine Medical Oncology
DX: C18.0 Malignant neoplasm of cecum (principal)
CPT/HCPCS: 36415; 80053

== ENCOUNTER 2025-09-17 14:47 | Outpatient (CLI) | payer MEDICARE, OTHER, SELFPAY ==
[2025-09-17 14:38] LABS: Hematocrit 45.9 % (42.0-52.0); Hemoglobin 14.6 g/dL (14.1-18.0); Immature Granulocytes % 0.6 %; Mean Corpuscular HGB Conc 31.8 g/dL (31.8-35.4); Mean Corpuscular Hemoglobin 30.0 pg (27.0-31.2); Mean Corpuscular Volume 94.4 fl (80-94); Nucleated Red Blood Cells % 0 %; Platelet Count 187 K/mm3 (142-424); Red Blood Count 4.86 M/mm3 (4.60-6.20); Red Cell Distribution Width-SD 44.4 fL; White Blood Count 5.3 K/mm3 (4.8-10.8)
--- OUTSIDE RECORDS SUMMARY | 2025-09-17 14:51 | XMS_ITS | Clinical Summary ---
Author Organization Healthcare Address [address] [place] [address] Care Team Providers Care Public Relations Coordinator Name Role Phone Miguel Quiñones MD Primary Care Provider [phone] Allergies No known active allergies Medications methocarbamol [...] - Risk 60-74 years 1-dose series) 2016 [id number] Vaccine (1 - 20 24-25 season) 2025 [facility]-Influenza Vaccine (#1) 2025 [facility]-Hepatitis C Screening [...] Antibody Negative Negative 06/13/2024 12:13 PM EDT [facility] Blood Venous blood specimen / Unknown Venipuncture / Unknown 06/13/2024 11:00 AM EDT 06/13/2024 11:15 AM EDT [facility] BLOOD ORDERABLES Chanelle lorenzo Result Performing Organization Address City/State/[facility] Co de Phone Number [facility] [address] [place] [phone] from Last 3 Months or Most Recently Relevant to Health Maintenance Insurance MEDICARE [facility] [place] [id number] Advance Directives * Full Code (Latest Code Status on File) Date Activated Date Inactivated Comments 06/13/2024 4:48 PM 06/15/2024 4:41 PM Question Answer Comments Patient has decision-making capacity? Yes Care Teams Public Relations Coordinator Relationship Specialty Start Date End Date Miguel Quiñones MD [facility] [address] [place] [address] PCP - General 03/19/21
[2025-09-17 15:42] LABS: Alanine Aminotransferase 13 U/L (12-78); Albumin Level 4.4 g/dl (3.5-5.0); Albumin/Globulin Ratio 1.4 (1.1-1.8); Alkaline Phosphatase 86 U/L (38-126); Anion Gap 12.5 mEq/L (5-15); Aspartate Amino Transferase 24 U/L (17-59); Bilirubin,Total 0.5 mg/dl (0.2-1.3); Blood Urea Nitrogen 13 mg/dl (9-20); Calcium 9.4 mg/dl (8.4-10.2); Carbon Dioxide 26 mmol/L (22.0-30.0); Chloride 105 mmol/L (98-107); Cholesterol 156 mg/dl (140-200); Creatinine,Serum 0.90 mg/dl (0.66-1.25); Estimated Glomerular Filt Rate 84 ml/min (>60); GFR (African American) 101 ML/MIN (>60); Globulin 3.1 g/dL (1.3-3.2); Glucose 90 mg/dl (74-100); HDL Cholesterol 53 mg/dl (40-60); Iron 103 ug/dL (49-181); Potassium 4.5 mmoL/L (3.5-5.1); Sodium 139 mmol/L (136-145); Total Protein,Serum 7.5 g/dl (6.3-8.2); Triglycerides 113 mg/dl (30-150)
[2025-09-17 15:53] LABS: Total Iron Binding Capacity 394 ug/dL (261-462)
[2025-09-18 08:14] LABS: CEA 2.7 ng/mL (0.0-4.7)
== END 2025-09-17 23:59 | disposition home or self-care (01) ==
LOC: LAB.DROPOF 14:49
PROVIDERS: PCP Internal Medicine; Visit Provider Internal Medicine
DX: C18.0 Malignant neoplasm of cecum (principal); Z12.5 Encounter for screening for malignant neoplasm of prostate; D50.9 Iron deficiency anemia, unspecified; E78.5 Hyperlipidemia, unspecified; I25.10 Atherosclerotic heart disease of native coronary artery without angina pectoris; J44.9 Chronic obstructive pulmonary disease, unspecified; I50.22 Chronic systolic (congestive) heart failure
CPT/HCPCS: 80053; 80061; 82378; 83540; 83550; 85025; G0103